=== PATIENT | female | born 1965 | race Caucasian/White ===

== ENCOUNTER 2017-11-03 00:39 | Observation (INO) | payer OTHER, MEDICARE ==
[~2017-11-03] VITALS: Ht 162.6 cm; Wt 50.8 kg
[~2017-11-03 00:39] MED LIST: ALDACTONE25 MG PO; HUMALOG100 UNIT/3 SQ; K DUR10 MEQ PO; LACTULOSE PO; LACTULOSE20 GM/30 M PO; LANTUS100 UNITS/ SQ; LASIX40 MG PO; LEVAQUIN500 MG PO; LEVEMIR 3M100 UNITS/ SC; LEVOTHYROXINE50 MCG PO; NOVOLOG100 UNITS/ SC; PANTOPRAZOLE SO20 MG PO; SPIRONOLACTONE25 MG PO; SYNTHROID50 MCG PO; TORSEMIDE20 MG PO; ULTRAM50 MG PO; VIAGRA50 MG PO; WELLBUTRIN XL150 MG PO; WELLBUTRIN75 MG PO; XIFAXAN200 MG PO; ZOFRAN ODT4 MG PO
--- OUTSIDE RECORDS SUMMARY | 2017-11-03 00:42 | XMS REPORT | Clinical Summary ---
Author Author [facility] Organization [facility] Address Unknown Phone Unavailable Care Team Providers Care Digital Content Marketing Manager Name Role Phone Kenyon Aguilar MD PCP Allergies Not on File Current Medications Not on file Active Problems Not on file Encounters Date Type Specialty Care Team Description 10/29/2017 [facility] Shaheen Bell MD Altered mental status, Encounter unspecified altered mental status type 10/28/2017 [facility] Ania Archuleta Altered mental status, Orders unspecified altered mental status type (Primary Dx) after 11/02/2016 Social History Tobacco Use Types Packs/Day Years Used Date Never Assessed Sex Assigned at Date Recorded Not on file Last Filed Vital Signs Not on file Plan of Treatment Health Maintenance Due Date Last Done Comments PAP SMEAR 12/03/1987 COLONOSCOPY 2016 MAMMOGRAM 2016 INFLUENZA VACCINE 03/19/2017 Procedures Procedure Name Priority Date/Time Associated Diagnosis Comments EEG AWAKE/ASLEEP LESS Routine 10/29/2017 Altered mental status, Results for this THAN 41 MIN 11:45 AM CDT unspecified altered procedure are in the mental status type results section. after 11/02/2016 Results * Outpatient EEG (10/29/2017 11:45 AM) Narrative EEG AWAKE AND ASLEEP Date of Service: 10/29/17 Awake Recording: The occipital dominant rhythm is 11 Hz. 18-22 Hz activity is present in all regions. Sleep Recording:No epileptiform activity was recorded. Hyperventilation: Not performed. Photic Stimulation: No abnormality elicited. Impression The background activity is within the range of normal variation. No lateralized or epileptiform activity was recorded. ICD-10 Code: R569 after 11/02/2016 Insurance Payer Benefit Subscriber ID Type Phone Address Plan / Group [facility] xxxxxxxxx HMO/PPO THCARE CHOICE/[place] [address]
--- OUTSIDE RECORDS SUMMARY | 2017-11-03 00:45 | XMS REPORT ---
[facility] Address Unknown Phone Unavailable Care Team Providers Care School Secretary Name Role Phone VANESA NIXON Unavailable Unavailable RUBINA, ALEXANDRA Unavailable Unavailable SAMWAYS, JEWEL Unavailable Unavailable FEGHALI, SAYED Unavailable Unavailable DARIANA, RICARDA Unavailable Unavailable CHANGELA, CARLOS Unavailable Unavailable KHADERI, PAOLA Unavailable Unavailable JALAL, PRASUN Unavailable Unavailable VU, TRIEN Unavailable Unavailable SYSTEM, PROVIDER Unavailable Unavailable TAVANGARIAN, MINI Unavailable Unavailable Problems This patient has no known problems. Allergies, Adverse Reactions, Alerts This patient has no known allergies or adverse reactions. Medications This patient has no known medications. Results Test Description Test Time Test Comments Text Results Atomic Results Result Comments MM, DIGITAL, MAMMO, SCREENING, BILATERAL INCLUDING CAD 2017-10-09 15:56:00 Reason for Exam:->screening. on liver transplant list #[id number] - MM, DIGITAL, MAMMO, SCREENING, BILATERAL INCLUDING CADBILATERAL DIGITAL SCREENING MAMMOGRAM WITH CAD: 10/09/2017Comparison is made to exam dated: 2010 mammogram - [facility]. The tissue of both breasts is extremely dense, which lowers the sensitivity of mammography. Current study was also evaluated with a Computer Aided Detection ( CAD) system. Benign appearing calcifications are present in both breasts. No significant masses, calcifications, or other findings are seen in either breast. IMPRESSION: BENIGNThere is no mammographic evidence of malignancy. A 1 year screening mammogram is recommended. Carol Delacruz M.D. pth/ penrad:10/09/2017 15:56:38 Normal Exam Mammogram BI-RADS: 2 Benign G0202 W/PLT COUNT & AUTO DIFFERENTIAL 2017-10-01 12:56:00 WHITE BLOOD CELL COUNT (BEAKER) (test sjoq=397) 2.4 K/ L 3.5-10.5 RED BLOOD CELL COUNT (BEAKER) (test ccvd=288) 2.66 M/ L 3.93-5.22 HEMOGLOBIN (BEAKER) (test iiup=027) 8.2 GM/DL 11.2-15.7 HEMATOCRIT (BEAKER) (test feln=116) 26.0 % 34.1-44.9 MEAN CORPUSCULAR VOLUME (BEAKER) (test epvf=279) 97.7 fL 79.4-94.8 MEAN CORPUSCULAR HEMOGLOBIN (BEAKER) (test mvch=301) 30.8 pg 25.6-32.2 MEAN CORPUSCULAR HEMOGLOBIN CONC (BEAKER) (test cdwl=561) 31.5 GM/DL 32.2- 35.5 RED CELL DISTRIBUTION WIDTH (BEAKER) (test pgzr=340) 16.4 % 11.7-14.4 PLATELET COUNT (BEAKER) (test mvwn=783) 70 K/CU MM 150-450 MEAN PLATELET VOLUME (BEAKER) (test daxj=727) 10.5 fL 9.4-12.3 NUCLEATED RED BLOOD CELLS (BEAKER) (test rcgw=258) 0 /100 WBC 0-0 IMMATURE GRANULOCYTES-RELATIVE PERCENT (BEAKER) (test wxdt=2783) 0 % 0-1 NEUTROPHILS RELATIVE PERCENT (BEAKER) (test bcsd=539) 70 % This is an appended report. These results have been appended to a previously final verified report. LYMPHOCYTES RELATIVE PERCENT (BEAKER) (test vaql=672) 19 % This is an appended report. These results have been appended to a previously final verified report. MONOCYTES RELATIVE PERCENT (BEAKER) (test zyia=229) 9 % This is an appended report. These results have been appended to a previously final verified report. EOSINOPHILS RELATIVE PERCENT (BEAKER) (test paml=504) 2 % This is an appended report. These results have been appended to a previously final verified report. BASOPHILS RELATIVE PERCENT (BEAKER) (test fgem=321) 0 % This is an appended report. These results have been appended to a previously final verified report. NEUTROPHILS ABSOLUTE COUNT (BEAKER) (test ywoo=463) 1.67 K/ L 1.56-6.13 This is an appended report. These results have been appended to a previously final verified report. LYMPHOCYTES ABSOLUTE COUNT (BEAKER) (test lnra=477) 0.45 K/ L 1.18-3.74 This is an appended report. These results have been appended to a previously final verified report. MONOCYTES ABSOLUTE COUNT (BEAKER) (test bymb=899) 0.21 K/ L 0.24-0.36 This is an appended report. These results have been appended to a previously final verified report. EOSINOPHILS ABSOLUTE COUNT (BEAKER) (test vrqe=445) 0.05 K/ L 0.04-0.36 This is an appended report. These results have been appended to a previously final verified report. BASOPHILS ABSOLUTE COUNT (BEAKER) (test rkgt=144) 0.01 K/ L 0.01-0.08 This is an appended report. These results have been appended to a previously final verified report. (MANUAL DIFFERENTIAL)2017-10-01 12:56:00* Test Item Value Reference Range Comments TOTAL COUNTED (BEAKER) (test cmqq=7457) COMPREHENSIVE METABOLIC [id number] 12:52:00* Test Item Value Reference Range Comments TOTAL PROTEIN (BEAKER) (test utjv=581) 5.9 gm/dL 6.0-8.3 ALBUMIN (BEAKER) (test udaz=3416) 2.7 g/dL 3.5-5.0 ALKALINE PHOSPHATASE (BEAKER) (test ftlg=750) 118 U/L 40-150 BILIRUBIN TOTAL (BEAKER) (test mxcc=769) 1.3 mg/dL 0.2-1.2 SODIUM (BEAKER) (test wzml=924) 138 meq/L 136-145 POTASSIUM (BEAKER) (test gbnv=680) 3.9 meq/L 3.5-5.1 CHLORIDE (BEAKER) (test uvcz=829) 107 meq/L 98-107 CO2 (BEAKER) (test vibo=117) 24 meq/L 22-29 BLOOD UREA NITROGEN (BEAKER) (test fode=262) 24 mg/dL 7-21 CREATININE (BEAKER) (test kwjx=535) 1.21 mg/dL 0.57-1.25 GLUCOSE RANDOM (BEAKER) (test cbuc=826) 245 mg/dL 70-105 CALCIUM (BEAKER) (test uqeg=187) 8.7 mg/dL 8.4-10.2 AST (SGOT) (BEAKER) (test xxaq=129) 19 U/L 5-34 ALT (SGPT) (BEAKER) (test bram=222) 14 U/L 6-55 EGFR (BEAKER) (test auqg=6680) 47 mL/min/1.73 sq m ESTIMATED GFR IS NOT ACCURATE CREATININE CLEARANCE IN PREDICTING GLOMERULAR FILTRATION RATE. ESTIMATED GFR IS NOT APPLICABLE FOR DIALYSIS PATIENTS. BILIRUBIN, [id number] 12:52:00* Test Item Value Reference Range Comments BILIRUBIN DIRECT (BEAKER) (test wigy=905) 0.7 mg/dL 0.1-0.5 PROTHROMBIN [id number] 12:37:00* Test Item Value Reference Range Comments PROTIME (BEAKER) (test yrlz=377) 18.0 seconds 11.7-14.7 INR (BEAKER) (test izbs=262) 1.5 <=5.9 RECOMMENDED COUMADIN/WARFARIN INR THERAPY RANGESSTANDARD DOSE: 2.0 - 3.0 Includes: PROPHYLAXIS for venous thrombosis, systemic embolization; TREATMENT for venous thrombosis and/or pulmonary embolus.HIGH RISK: Target INR is 2.5-3.5 for patients with mechanical heart valves.TISSUE [id number] 10:19: 00Surgical Pathology Report Case: [id number] Authorizing Provider: Vanesa Nixon MD Collected : 09/26/2017 1245 Ordering Location: [facility] Endoscopy Received: 09/26/2017 1532 Services Pathologist: Ima Zendejas MD Specimen: Polyp, Colon - Rectum PART A RECTAL POLYP, BIOPSY:TUBULAR ADENOMA. Signing Pathologist Direct Phone Line: [phone] signed by Iam Zendejas MD on 09/27/2017 at 10:19 [id number] encephalopathy, alcoholic cirrhosis of liver without ascitesRectum colon polyp The specimen is received in a formalin-filled container labeled with the patient 's information and labeled "rectum colon polyp" and consists of a 0.4 cm round fragment of georges-white soft tissue entirely submitted in A1. CG/ew POCT-GLUCOSE [id number] 06:11:00* Test Item Value Reference Range Comments POC-GLUCOSE METER (BEAKER) (test ikfk=8538) 284 mg/dL 70-110 TESTED AT [facility] [address] [facility] [address] POCT-GLUCOSE [id number] 11:08:00* Test Item Value Reference Range Comments POC-GLUCOSE METER (BEAKER) (test obyu=1806) 261 mg/dL 70-110 TESTED AT [facility] [address] [facility] [address] BLOOD [id number] 11:00:00* Test Item Value Reference Range Comments CULTURE (BEAKER) (test pbdc=0586) No growth in 5 days BLOOD [id number] 10:00:00* Test Item Value Reference Range Comments CULTURE (BEAKER) (test bjzu=3070) No growth in 5 days POCT-GLUCOSE [id number] 14:28:00* Test Item Value Reference Range Comments POC-GLUCOSE METER (BEAKER) (test ovnt=0745) 254 mg/dL 70-110 TESTED AT [facility] [address] [facility] [address] BASIC METABOLIC [id number] 11:20:00* Test Item Value Reference Range Comments SODIUM (BEAKER) (test gtxb=778) 130 meq/L 136-145 POTASSIUM (BEAKER) (test whkv=531) 4.4 meq/L 3.5-5.1 CHLORIDE (BEAKER) (test txvg=030) 103 meq/L 98-107 CO2 (BEAKER) (test bifz=063) 20 meq/L 22-29 BLOOD UREA NITROGEN (BEAKER) (test uyaj=911) 36 mg/dL 7-21 CREATININE (BEAKER) (test xqil=079) 1.06 mg/dL 0.57-1.25 GLUCOSE RANDOM (BEAKER) (test mcco=313) 461 mg/dL 70-105 CALCIUM (BEAKER) (test agmx=809) 7.9 mg/dL 8.4-10.2 EGFR (BEAKER) (test zznq=8428) 55 mL/min/1.73 sq m ESTIMATED GFR IS NOT ACCURATE CREATININE CLEARANCE IN PREDICTING GLOMERULAR FILTRATION RATE. ESTIMATED GFR IS NOT APPLICABLE FOR DIALYSIS PATIENTS. POCT-GLUCOSE [id number] 11:17:00* Test Item Value Reference Range Comments POC-GLUCOSE METER (BEAKER) (test aqdz=8632) 282 mg/dL 70-110 TESTED AT [facility] [address] [facility] [address] URINE [id number] 11:06:00* Test Item Value Reference Range Comments CULTURE (BEAKER) (test frfo=9827) 10-19,000 col/mL Beta-hemolytic streptococcus group B, by serological grouping 50-59,000 col/ml skin floraHEPATIC FUNCTION [id number] 08:37:00* Test Item Value Reference Range Comments TOTAL PROTEIN (BEAKER) (test etmq=516) 5.6 gm/dL 6.0-8.3 ALBUMIN (BEAKER) (test bcbc=5385) 2.6 g/dL 3.5-5.0 BILIRUBIN TOTAL (BEAKER) (test mfoi=595) 1.7 mg/dL 0.2-1.2 BILIRUBIN DIRECT (BEAKER) (test xhed=793) 0.9 mg/dL 0.1-0.5 ALKALINE PHOSPHATASE (BEAKER) (test qvxq=093) 118 U/L 40-150 AST (SGOT) (BEAKER) (test lzns=602) 40 U/L 5-34 ALT (SGPT) (BEAKER) (test zgqn=421) 22 U/L 6-55 MR, ABDOMEN, [id number] 08:28:00FINAL REPORT MRI of the abdomen with and without contrast Clinical History: Portal hypertensionliver disease with risk of hcc, liver protocol Technique: Multiplanar and multisequence MR images of the abdomen are obtained before and after intravenous contrast administration. Contrast is administered to evaluate neoplasm and vasculature. Comparison: January 30, 2017, August 16, 2016 Discussion: There is a small loculated collection of fluid at the right lung base. Heart appears enlarged. Liver is cirrhotic. There is no biliary ductal dilatation, gallbladder is absent. No suspicious liver mass is identified. A few tiny hypoenhancing nodules are similar to the previous exams. Hepatic vasculature is patent. Main portal vein is slightly small in caliber measuring 0.8 cm. 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 Spleen is enlarged and measures 17.2 cm sagittally. The pancreas, adrenal glands are unremarkable. No hydronephrosis. Multiple cysts are present in both kidneys. There is trace ascites. No adenopathy identified. No suspicious bony lesion. Impression: Cirrhosis, splenomegaly and portal hypertension. No suspicious liver mass identified. Trace ascites. Small loculated right pleural effusion. Signed: Salome Pino MDReport Verified Date/Time: 08/29/2017 08:28:00 Reading Location: [facility] Diagnostic Imaging Reading Room - [place] [address] W/PLT COUNT & AUTO [id number] 08:15:00* Test Item Value Reference Range Comments WHITE BLOOD CELL COUNT (BEAKER) (test zbvr=713) 1.7 K/ L 3.5-10.5 RED BLOOD CELL COUNT (BEAKER) (test htav=569) 2.30 M/ L 3.93-5.22 HEMOGLOBIN (BEAKER) (test dipq=253) 7.7 GM/DL 11.2-15.7 HEMATOCRIT (BEAKER) (test qwfk=250) 23.6 % 34.1-44.9 MEAN CORPUSCULAR VOLUME (BEAKER) (test rzrs=090) 102.6 fL 79.4-94.8 MEAN CORPUSCULAR HEMOGLOBIN (BEAKER) (test xopf=247) 33.5 pg 25.6-32.2 MEAN CORPUSCULAR HEMOGLOBIN CONC (BEAKER) (test nfmu=922) 32.6 GM/DL 32.2- 35.5 RED CELL DISTRIBUTION WIDTH (BEAKER) (test ndrq=297) 15.9 % 11.7-14.4 PLATELET COUNT (BEAKER) (test owqq=364) 77 K/CU MM 150-450 MEAN PLATELET VOLUME (BEAKER) (test kwip=193) 10.8 fL 9.4-12.3 NUCLEATED RED BLOOD CELLS (BEAKER) (test fktp=068) 0 /100 WBC 0-0 NEUTROPHILS RELATIVE PERCENT (BEAKER) (test hafk=398) 66 % LYMPHOCYTES RELATIVE PERCENT (BEAKER) (test hsvc=738) 25 % MONOCYTES RELATIVE PERCENT (BEAKER) (test ribd=357) 8 % EOSINOPHILS RELATIVE PERCENT (BEAKER) (test tqat=247) 0 % BASOPHILS RELATIVE PERCENT (BEAKER) (test hgux=779) 1 % NEUTROPHILS ABSOLUTE COUNT (BEAKER) (test lxzf=638) 1.12 K/ L 1.56-6.13 LYMPHOCYTES ABSOLUTE COUNT (BEAKER) (test vijr=516) 0.42 K/ L 1.18-3.74 MONOCYTES ABSOLUTE COUNT (BEAKER) (test drry=632) 0.14 K/ L 0.24-0.36 EOSINOPHILS ABSOLUTE COUNT (BEAKER) (test ploq=189) 0.00 K/ L 0.04-0.36 BASOPHILS ABSOLUTE COUNT (BEAKER) (test wkug=021) 0.01 K/ L 0.01-0.08 IMMATURE GRANULOCYTES-RELATIVE PERCENT (BEAKER) (test yjqb=0552) 1 % 0-1 POCT-GLUCOSE [id number] 07:47:00* Test Item Value Reference Range Comments POC-GLUCOSE METER (BEAKER) (test rzxv=7465) 365 mg/dL 70-110 Notified SELVIN JACOBSON/ TESTED AT [address] [address] PROTHROMBIN [id number] 06:48:00* Test Item Value Reference Range Comments PROTIME (BEAKER) (test oimz=157) 17.2 seconds 11.7-14.7 INR (BEAKER) (test owcc=056) 1.4 <=5.9 RECOMMENDED COUMADIN/WARFARIN INR THERAPY RANGESSTANDARD DOSE: 2.0 - 3.0 Includes: PROPHYLAXIS for venous thrombosis, systemic embolization; TREATMENT for venous thrombosis and/or pulmonary embolus.HIGH RISK: Target INR is 2.5-3.5 for patients with mechanical heart valves.POCT-GLUCOSE [id number] 21:36:00 * Test Item Value Reference Range Comments POC-GLUCOSE METER (BEAKER) (test hvyo=9760) 255 mg/dL 70-110 TESTED AT [address] [address] POCT-GLUCOSE [id number] 18:21:00* Test Item Value Reference Range Comments POC-GLUCOSE METER (BEAKER) (test iqwn=4341) 366 mg/dL 70-110 TESTED AT [address] [address] CBC W/PLT COUNT & AUTO [id number] 15:45:00* Test Item Value Reference Range Comments WHITE BLOOD CELL COUNT (BEAKER) (test gckb=410) 1.8 K/ L 3.5-10.5 RED BLOOD CELL COUNT (BEAKER) (test rlch=157) 2.29 M/ L 3.93-5.22 HEMOGLOBIN (BEAKER) (test jkcu=480) 7.6 GM/DL 11.2-15.7 HEMATOCRIT (BEAKER) (test weoo=714) 23.4 % 34.1-44.9 MEAN CORPUSCULAR VOLUME (BEAKER) (test npst=785) 102.2 fL 79.4-94.8 MEAN CORPUSCULAR HEMOGLOBIN (BEAKER) (test qbnt=865) 33.2 pg 25.6-32.2 MEAN CORPUSCULAR HEMOGLOBIN CONC (BEAKER) (test wzkk=530) 32.5 GM/DL 32.2- 35.5 RED CELL DISTRIBUTION WIDTH (BEAKER) (test jjyc=318) 16.7 % 11.7-14.4 PLATELET COUNT (BEAKER) (test djpk=511) 78 K/CU MM 150-450 MEAN PLATELET VOLUME (BEAKER) (test finh=624) 10.1 fL 9.4-12.3 NUCLEATED RED BLOOD CELLS (BEAKER) (test iftq=822) 0 /100 WBC 0-0 NEUTROPHILS RELATIVE PERCENT (BEAKER) (test mnuj=856) 61 % LYMPHOCYTES RELATIVE PERCENT (BEAKER) (test dnvb=288) 26 % MONOCYTES RELATIVE PERCENT (BEAKER) (test whtq=517) 10 % EOSINOPHILS RELATIVE PERCENT (BEAKER) (test bwnk=283) 2 % BASOPHILS RELATIVE PERCENT (BEAKER) (test agor=949) 1 % NEUTROPHILS ABSOLUTE COUNT (BEAKER) (test qrdg=066) 1.07 K/ L 1.56-6.13 LYMPHOCYTES ABSOLUTE COUNT (BEAKER) (test libl=309) 0.45 K/ L 1.18-3.74 MONOCYTES ABSOLUTE COUNT (BEAKER) (test idzg=211) 0.18 K/ L 0.24-0.36 EOSINOPHILS ABSOLUTE COUNT (BEAKER) (test fyfh=786) 0.03 K/ L 0.04-0.36 BASOPHILS ABSOLUTE COUNT (BEAKER) (test brca=364) 0.01 K/ L 0.01-0.08 IMMATURE GRANULOCYTES-RELATIVE PERCENT (BEAKER) (test qrgy=6316) 1 % 0-1 (MANUAL DIFFERENTIAL)2017-08-28 15:45:00* Test Item Value Reference Range Comments TOTAL COUNTED (BEAKER) (test vfgw=8640) WBC MORPHOLOGY (BEAKER) (test mycv=433) Normal PLT MORPHOLOGY (BEAKER) (test yhhp=466) Normal MACROCYTES (BEAKER) (test pitg=593) 1+ few POCT-GLUCOSE [id number] 13:03:00* Test Item Value Reference Range Comments POC-GLUCOSE METER (BEAKER) (test qnbg=7744) 358 mg/dL 70-110 Notified SELVIN JACOBSON/ TESTED AT [facility] [address] [facility] [address] POCT-GLUCOSE [id number] 07:39:00* Test Item Value Reference Range Comments POC-GLUCOSE METER (BEAKER) (test nlbl=3283) 241 mg/dL 70-110 TESTED AT [place] [id number] [facility] [address] HEPATIC FUNCTION [id number] 07:05:00* Test Item Value Reference Range Comments TOTAL PROTEIN (BEAKER) (test grpl=223) 5.4 gm/dL 6.0-8.3 ALBUMIN (BEAKER) (test iypk=0081) 2.4 g/dL 3.5-5.0 BILIRUBIN TOTAL (BEAKER) (test ooqu=626) 1.7 mg/dL 0.2-1.2 BILIRUBIN DIRECT (BEAKER) (test qjnt=243) 0.9 mg/dL 0.1-0.5 ALKALINE PHOSPHATASE (BEAKER) (test rcwf=450) 95 U/L 40-150 AST (SGOT) (BEAKER) (test aetx=830) 30 U/L 5-34 ALT (SGPT) (BEAKER) (test shln=978) 18 U/L 6-55 BASIC METABOLIC [id number] 07:05:00* Test Item Value Reference Range Comments SODIUM (BEAKER) (test kpnw=433) 143 meq/L 136-145 POTASSIUM (BEAKER) (test qrgr=532) 4.0 meq/L 3.5-5.1 CHLORIDE (BEAKER) (test aova=167) 115 meq/L 98-107 CO2 (BEAKER) (test xdql=784) 22 meq/L 22-29 BLOOD UREA NITROGEN (BEAKER) (test vehk=953) 33 mg/dL 7-21 CREATININE (BEAKER) (test mxfb=123) 0.91 mg/dL 0.57-1.25 GLUCOSE RANDOM (BEAKER) (test udvj=493) 206 mg/dL 70-105 CALCIUM (BEAKER) (test fmtt=240) 8.6 mg/dL 8.4-10.2 EGFR (BEAKER) (test vnbd=3957) 65 mL/min/1.73 sq m ESTIMATED GFR IS NOT ACCURATE CREATININE CLEARANCE IN PREDICTING GLOMERULAR FILTRATION RATE. ESTIMATED GFR IS NOT APPLICABLE FOR DIALYSIS PATIENTS. PROTHROMBIN TIME/[id number] 06:40:00* Test Item Value Reference Range Comments PROTIME (BEAKER) (test cido=050) 17.5 seconds 11.7-14.7 INR (BEAKER) (test izmz=114) 1.4 <=5.9 RECOMMENDED COUMADIN/WARFARIN INR THERAPY RANGESSTANDARD DOSE: 2.0 - 3.0 Includes: PROPHYLAXIS for venous thrombosis, systemic embolization; TREATMENT for venous thrombosis and/or pulmonary embolus.HIGH RISK: Target INR is 2.5-3.5 for patients with mechanical heart valves.POCT-GLUCOSE [id number] 00:13:00 * Test Item Value Reference Range Comments POC-GLUCOSE METER (BEAKER) (test cmyo=9032) 368 mg/dL 70-110 Notified SELVIN JACOBSON/ TESTED AT [address] [address] URINALYSIS W/ [id number] 18:44:00* Test Item Value Reference Range Comments COLOR (BEAKER) (test aopy=832) Light Yellow CLARITY (BEAKER) (test sfyr=368) Clear SPECIFIC GRAVITY UA (BEAKER) (test cblx=921) 1.006 1.001-1.035 PH UA (BEAKER) (test bspr=777) 7.0 5.0-8.0 PROTEIN UA (BEAKER) (test qwvv=503) Negative Negative GLUCOSE UA (BEAKER) (test tmez=367) Negative Negative KETONES UA (BEAKER) (test wlsb=527) Negative Negative BILIRUBIN UA (BEAKER) (test abol=485) Negative Negative BLOOD UA (BEAKER) (test lhpw=370) Negative Negative NITRITE UA (BEAKER) (test mugn=789) Negative Negative LEUKOCYTE ESTERASE UA (BEAKER) (test gixy=573) Negative Negative UROBILINOGEN UA (BEAKER) (test mfwi=628) 0.2 mg/dL 0.2-1.0 RBC UA (BEAKER) (test kjxy=242) 1 /HPF WBC UA (BEAKER) (test ldgb=043) < /HPF SQUAMOUS EPITHELIAL (BEAKER) (test gymh=448) 1 /HPF SOURCE(BEAKER) (test qtno=9172) Urine, Voided POCT-GLUCOSE [id number] 17:07:00* Test Item Value Reference Range Comments POC-GLUCOSE METER (BEAKER) (test rywc=3278) 178 mg/dL 70-110 TESTED AT [facility] [address] [facility] [address] CBC W/PLT COUNT & AUTO [id number] 16:54:00* Test Item Value Reference Range Comments WHITE BLOOD CELL COUNT (BEAKER) (test jnqz=665) 2.5 K/ L 3.5-10.5 RED BLOOD CELL COUNT (BEAKER) (test ozun=818) 2.40 M/ L 3.93-5.22 HEMOGLOBIN (BEAKER) (test mpyv=290) 7.9 GM/DL 11.2-15.7 HEMATOCRIT (BEAKER) (test dexo=809) 24.3 % 34.1-44.9 MEAN CORPUSCULAR VOLUME (BEAKER) (test yqdu=237) 101.3 fL 79.4-94.8 MEAN CORPUSCULAR HEMOGLOBIN (BEAKER) (test ffmt=304) 32.9 pg 25.6-32.2 MEAN CORPUSCULAR HEMOGLOBIN CONC (BEAKER) (test azwq=681) 32.5 GM/DL 32.2- 35.5 RED CELL DISTRIBUTION WIDTH (BEAKER) (test kfsl=030) 16.4 % 11.7-14.4 PLATELET COUNT (BEAKER) (test qdgj=522) 77 K/CU MM 150-450 MEAN PLATELET VOLUME (BEAKER) (test suap=618) 10.5 fL 9.4-12.3 NUCLEATED RED BLOOD CELLS (BEAKER) (test npcp=346) 0 /100 WBC 0-0 NEUTROPHILS RELATIVE PERCENT (BEAKER) (test polx=916) 71 % LYMPHOCYTES RELATIVE PERCENT (BEAKER) (test pzbg=262) 18 % MONOCYTES RELATIVE PERCENT (BEAKER) (test srlw=405) 7 % EOSINOPHILS RELATIVE PERCENT (BEAKER) (test wdeg=771) 2 % BASOPHILS RELATIVE PERCENT (BEAKER) (test imgo=340) 0 % NEUTROPHILS ABSOLUTE COUNT (BEAKER) (test gvor=856) 1.78 K/ L 1.56-6.13 LYMPHOCYTES ABSOLUTE COUNT (BEAKER) (test yxfw=593) 0.46 K/ L 1.18-3.74 MONOCYTES ABSOLUTE COUNT (BEAKER) (test awyg=304) 0.18 K/ L 0.24-0.36 EOSINOPHILS ABSOLUTE COUNT (BEAKER) (test cccc=512) 0.04 K/ L 0.04-0.36 BASOPHILS ABSOLUTE COUNT (BEAKER) (test maag=787) 0.01 K/ L 0.01-0.08 IMMATURE GRANULOCYTES-RELATIVE PERCENT (BEAKER) (test juxp=6215) 1 % 0-1 BASIC METABOLIC [id number] 14:42:00* Test Item Value Reference Range Comments SODIUM (BEAKER) (test lusp=930) 144 meq/L 136-145 POTASSIUM (BEAKER) (test qcew=903) 4.0 meq/L 3.5-5.1 CHLORIDE (BEAKER) (test arhp=586) 113 meq/L 98-107 CO2 (BEAKER) (test mojq=070) 22 meq/L 22-29 BLOOD UREA NITROGEN (BEAKER) (test xgvs=155) 38 mg/dL 7-21 CREATININE (BEAKER) (test lgxz=716) 0.94 mg/dL 0.57-1.25 GLUCOSE RANDOM (BEAKER) (test pzyb=665) 133 mg/dL 70-105 CALCIUM (BEAKER) (test vgsz=616) 9.1 mg/dL 8.4-10.2 EGFR (BEAKER) (test hrri=6740) 63 mL/min/1.73 sq m ESTIMATED GFR IS NOT ACCURATE CREATININE CLEARANCE IN PREDICTING GLOMERULAR FILTRATION RATE. ESTIMATED GFR IS NOT APPLICABLE FOR DIALYSIS PATIENTS. Specimen slightly ictericHEPATIC FUNCTION [id number] 14:42:00* Test Item Value Reference Range Comments TOTAL PROTEIN (BEAKER) (test midi=373) 5.8 gm/dL 6.0-8.3 ALBUMIN (BEAKER) (test upbo=4873) 2.7 g/dL 3.5-5.0 BILIRUBIN TOTAL (BEAKER) (test hriz=916) 1.7 mg/dL 0.2-1.2 BILIRUBIN DIRECT (BEAKER) (test vgyc=759) 1.0 mg/dL 0.1-0.5 ALKALINE PHOSPHATASE (BEAKER) (test ngla=533) 108 U/L 40-150 AST (SGOT) (BEAKER) (test xfia=357) 33 U/L 5-34 ALT (SGPT) (BEAKER) (test zjqt=730) 20 U/L 6-55 Specimen slightly [id number] 13:48:00* Test Item Value Reference Range Comments AMMONIA (BEAKER) (test ehmc=113) 145 mol/L 18-72 CT, BRAIN, WITHOUT [id number] 11:39:00Reason for exam:->amsIs the patient ?->NoWhat is the patient's sedation requirement?->No SedationFINAL REPORT CT head without contrast INDICATION : Altered mental status. TECHNIQUE: Axial noncontrast CT images through the head were obtained. This exam was performed according to our departmental dose optimization program which includes automated exposure control, adjustment of the mA and/or kV according to patient size and/or use of iterative reconstruction technique. COMPARISON: CT head 02/14/2017 FINDINGS:There is no acute intracranial hemorrhage or mass effect. Microvascular ischemic changes are similar to the prior study and chronic appearing. Please note that CT is insensitive for early or small infarcts. Generalized volume loss and minimal vascular calcifications are noted. There is no hydrocephalus or midline shift. There is stable minimal mastoid air cell fluid. The imaged sinuses and orbits are unremarkable. The calvarium is intact. IMPRESSION: No acute intracranial hemorrhage or mass effect. Chronic appearing microvascular and involutional changes. If there is persistent concern for acute abnormality, MRI is advised. Signed: Nelly Benoit MDRepthe rehabilitation institute Verified Date/Time: 08/27/2017 11:39:33 Reading Location: [address] Neuro Reading Room E [id number] 10:43: 00* Test Item Value Reference Range Comments CULTURE (BEAKER) (test poav=2786) No growth POCT-GLUCOSE [id number] 08:36:00* Test Item Value Reference Range Comments POC-GLUCOSE METER (BEAKER) (test utlv=2540) 317 mg/dL 70-110 Notified SELVIN JACOBSON/ TESTED AT [address] [address] CBC W/PLT COUNT & AUTO [id number] 06:57:00* Test Item Value Reference Range Comments WHITE BLOOD CELL COUNT (BEAKER) (test kvwn=080) 3.4 K/ L 3.5-10.5 RED BLOOD CELL COUNT (BEAKER) (test zvkg=667) 2.38 M/ L 3.93-5.22 HEMOGLOBIN (BEAKER) (test mpbu=379) 7.8 GM/DL 11.2-15.7 HEMATOCRIT (BEAKER) (test tfrl=365) 23.5 % 34.1-44.9 MEAN CORPUSCULAR VOLUME (BEAKER) (test erpm=955) 98.7 fL 79.4-94.8 MEAN CORPUSCULAR HEMOGLOBIN (BEAKER) (test ozez=041) 32.8 pg 25.6-32.2 MEAN CORPUSCULAR HEMOGLOBIN CONC (BEAKER) (test akjk=589) 33.2 GM/DL 32.2- 35.5 RED CELL DISTRIBUTION WIDTH (BEAKER) (test empc=367) 15.3 % 11.7-14.4 PLATELET COUNT (BEAKER) (test riza=406) 71 K/CU MM 150-450 MEAN PLATELET VOLUME (BEAKER) (test pjrh=319) 9.9 fL 9.4-12.3 NUCLEATED RED BLOOD CELLS (BEAKER) (test zosx=180) 0 /100 WBC 0-0 NEUTROPHILS RELATIVE PERCENT (BEAKER) (test pogd=809) 78 % LYMPHOCYTES RELATIVE PERCENT (BEAKER) (test vojs=682) 13 % MONOCYTES RELATIVE PERCENT (BEAKER) (test txbi=015) 7 % EOSINOPHILS RELATIVE PERCENT (BEAKER) (test honm=117) 1 % BASOPHILS RELATIVE PERCENT (BEAKER) (test dhph=660) 1 % NEUTROPHILS ABSOLUTE COUNT (BEAKER) (test olgg=098) 2.62 K/ L 1.56-6.13 LYMPHOCYTES ABSOLUTE COUNT (BEAKER) (test kwsu=823) 0.45 K/ L 1.18-3.74 MONOCYTES ABSOLUTE COUNT (BEAKER) (test sbiw=407) 0.22 K/ L 0.24-0.36 EOSINOPHILS ABSOLUTE COUNT (BEAKER) (test vtob=265) 0.04 K/ L 0.04-0.36 BASOPHILS ABSOLUTE COUNT (BEAKER) (test wnuj=903) 0.02 K/ L 0.01-0.08 IMMATURE GRANULOCYTES-RELATIVE PERCENT (BEAKER) (test kesw=0311) 0 % 0-1 [id number] 06:31:00* Test Item Value Reference Range Comments PHOSPHORUS (BEAKER) (test ggmj=259) 2.0 mg/dL 2.3-4.7 [id number] 06:31:00* Test Item Value Reference Range Comments MAGNESIUM (BEAKER) (test nadt=722) 1.2 mg/dL 1.6-2.6 COMPREHENSIVE METABOLIC [id number] 06:31:00* Test Item Value Reference Range Comments TOTAL PROTEIN (BEAKER) (test zwrr=796) 5.3 gm/dL 6.0-8.3 ALBUMIN (BEAKER) (test fxfk=6959) 2.5 g/dL 3.5-5.0 ALKALINE PHOSPHATASE (BEAKER) (test eaif=136) 103 U/L 40-150 BILIRUBIN TOTAL (BEAKER) (test rtiv=909) 2.0 mg/dL 0.2-1.2 SODIUM (BEAKER) (test efau=212) 134 meq/L 136-145 POTASSIUM (BEAKER) (test yyly=662) 3.7 meq/L 3.5-5.1 CHLORIDE (BEAKER) (test zjes=519) 105 meq/L 98-107 CO2 (BEAKER) (test irza=297) 23 meq/L 22-29 BLOOD UREA NITROGEN (BEAKER) (test irpd=646) 28 mg/dL 7-21 CREATININE (BEAKER) (test irnm=796) 1.06 mg/dL 0.57-1.25 GLUCOSE RANDOM (BEAKER) (test awus=008) 355 mg/dL 70-105 CALCIUM (BEAKER) (test ascq=045) 8.1 mg/dL 8.4-10.2 AST (SGOT) (BEAKER) (test dvzt=348) 24 U/L 5-34 ALT (SGPT) (BEAKER) (test swnj=461) 16 U/L 6-55 EGFR (BEAKER) (test bewi=8454) 55 mL/min/1.73 sq m ESTIMATED GFR IS NOT ACCURATE CREATININE CLEARANCE IN PREDICTING GLOMERULAR FILTRATION RATE. ESTIMATED GFR IS NOT APPLICABLE FOR DIALYSIS PATIENTS. PROTHROMBIN [id number] 06:22:00* Test Item Value Reference Range Comments PROTIME (BEAKER) (test cyim=009) 18.5 seconds 11.7-14.7 INR (BEAKER) (test qppn=866) 1.5 <=5.9 RECOMMENDED COUMADIN/WARFARIN INR THERAPY RANGESSTANDARD DOSE: 2.0 - 3.0 Includes: PROPHYLAXIS for venous thrombosis, systemic embolization; TREATMENT for venous thrombosis and/or pulmonary embolus.HIGH RISK: Target INR is 2.5-3.5 for patients with mechanical heart valves.[id number] 06:13:00* Test Item Value Reference Range Comments AMMONIA (BEAKER) (test haau=362) 85 mol/L 18-72 POCT-GLUCOSE [id number] 23:43:00* Test Item Value Reference Range Comments POC-GLUCOSE METER (BEAKER) (test tfiz=4536) 411 mg/dL 70-110 TESTED AT [facility] [address] [facility] [address] URINALYSIS W/ [id number] 22:42:00* Test Item Value Reference Range Comments COLOR (BEAKER) (test xvwe=224) Yellow CLARITY (BEAKER) (test bgbx=468) Clear SPECIFIC GRAVITY UA (BEAKER) (test keho=915) 1.011 1.001-1.035 PH UA (BEAKER) (test hhva=041) 6.5 5.0-8.0 PROTEIN UA (BEAKER) (test qaaa=626) Negative Negative GLUCOSE UA (BEAKER) (test cmht=766) Negative Negative KETONES UA (BEAKER) (test hkvc=536) Negative Negative BILIRUBIN UA (BEAKER) (test lrlb=959) Negative Negative BLOOD UA (BEAKER) (test pcmj=371) Negative Negative NITRITE UA (BEAKER) (test cabo=669) Negative Negative LEUKOCYTE ESTERASE UA (BEAKER) (test sxqd=506) Negative Negative UROBILINOGEN UA (BEAKER) (test rdvw=238) 3.0 mg/dL 0.2-1.0 RBC UA (BEAKER) (test jjxj=427) 3 /HPF WBC UA (BEAKER) (test obhc=488) 3 /HPF SQUAMOUS EPITHELIAL (BEAKER) (test cqzd=080) 2 /HPF SOURCE(BEAKER) (test owtt=3796) POCT-GLUCOSE [id number] 21:49:00* Test Item Value Reference Range Comments POC-GLUCOSE METER (BEAKER) (test facy=3458) > mg/dL 70-110 OUTSIDE MEASURING RANGENotified SELVIN JACOBSON/TESTED AT [facility] [address] [place] [address] POCT-GLUCOSE [id number] 16:16:00* Test Item Value Reference Range Comments POC-GLUCOSE METER (BEAKER) (test jydh=7060) 181 mg/dL 70-110 TESTED AT [address] [address] POCT-GLUCOSE [id number] 16:13:00* Test Item Value Reference Range Comments POC-GLUCOSE METER (BEAKER) (test cnyg=0095) 237 mg/dL 70-110 TESTED AT [address] [address] CREATINE KINASE (CK), TOTAL AND [id number] 08:44:00* Test Item Value Reference Range Comments CREATINE KINASE TOTAL (BEAKER) (test awti=350) 23 U/L 29-200 CREATINE KINASE-MB (BEAKER) (test fdrj=091) 1.0 ng/mL 0.0-6.6 CREATINE KINASE-MB INDEX (BEAKER) (test kanx=563) 4.3 % CK-MB Reference Range:<6.7 Normal6.7-10.0 Borderline>10.0 AbnormalTROPONIN [id number] 08:44:00* Test Item Value Reference Range Comments TROPONIN I (BEAKER) (test emmo=135) < ng/mL 0.00-0.03 Troponin I (TnI) levels must be interpreted in the context of the presenting symptoms and the clinical findings. Elevated TnI levels indicate myocardial damage, but are not specific for ischemic heart disease. Elevated TnI levels are seen in patients with other cardiac conditions (including myocarditis and congestive heart failure), and slight TnI elevations occur in patients with other conditions, including sepsis, renal failure, acidosis, acute neurological disease, and persistent tachyarrhythmia.[id number] 06:17:00* Test Item Value Reference Range Comments PHOSPHORUS (BEAKER) (test wkvi=286) 2.9 mg/dL 2.3-4.7 [id number] 06:17:00* Test Item Value Reference Range Comments MAGNESIUM (BEAKER) (test hszh=185) 1.8 mg/dL 1.6-2.6 CREATINE KINASE (CK), TOTAL AND [id number] 06:17:00* Test Item Value Reference Range Comments CREATINE KINASE TOTAL (BEAKER) (test qtjd=444) 26 U/L 29-200 CREATINE KINASE-MB (BEAKER) (test siov=283) 1.1 ng/mL 0.0-6.6 CREATINE KINASE-MB INDEX (BEAKER) (test wvrm=900) 4.2 % CK-MB Reference Range:<6.7 Normal6.7-10.0 Borderline>10.0 AbnormalTROPONIN [id number] 05:49:00* Test Item Value Reference Range Comments TROPONIN I (BEAKER) (test tiuj=977) < ng/mL 0.00-0.03 Troponin I (TnI) levels must be interpreted in the context of the presenting symptoms and the clinical findings. Elevated TnI levels indicate myocardial damage, but are not specific for ischemic heart disease. Elevated TnI levels are seen in patients with other cardiac conditions (including myocarditis and congestive heart failure), and slight TnI elevations occur in patients with other conditions, including sepsis, renal failure, acidosis, acute neurological disease, and persistent tachyarrhythmia.LACTIC ACID, ARTERIAL, WHOLE [id number] 05:45:00* Test Item Value Reference Range Comments LACTATE BLOOD ARTERIAL (2) (BEAKER) (test aavz=5435) 0.9 mmol/L 0.5-2.2 Specimen slightly hemolyzed Effective 12/21/2015: Units/Reference Range ChangeNew: 0.5-2.2 mmol/L Previous: 5 -20 mg/dLPOCT-GLUCOSE [id number] 00:51:00* Test Item Value Reference Range Comments POC-GLUCOSE METER (BEAKER) (test kedi=0472) 199 mg/dL 70-110 TESTED AT [address] [address] HEPATIC FUNCTION [id number] 00:49:00* Test Item Value Reference Range Comments TOTAL PROTEIN (BEAKER) (test ucfl=611) 5.7 gm/dL 6.0-8.3 ALBUMIN (BEAKER) (test qniw=4021) 2.5 g/dL 3.5-5.0 BILIRUBIN TOTAL (BEAKER) (test kqjj=173) 1.6 mg/dL 0.2-1.2 BILIRUBIN DIRECT (BEAKER) (test pkyo=539) 0.9 mg/dL 0.1-0.5 ALKALINE PHOSPHATASE (BEAKER) (test dinu=598) 110 U/L 40-150 AST (SGOT) (BEAKER) (test ptgt=097) 25 U/L 5-34 ALT (SGPT) (BEAKER) (test mgak=466) 15 U/L 6-55 BASIC METABOLIC [id number] 00:49:00* Test Item Value Reference Range Comments SODIUM (BEAKER) (test tmst=864) 139 meq/L 136-145 POTASSIUM (BEAKER) (test ldyo=160) 4.1 meq/L 3.5-5.1 CHLORIDE (BEAKER) (test pdns=763) 108 meq/L 98-107 CO2 (BEAKER) (test wmbg=692) 23 meq/L 22-29 BLOOD UREA NITROGEN (BEAKER) (test jjts=398) 29 mg/dL 7-21 CREATININE (BEAKER) (test snrq=966) 1.08 mg/dL 0.57-1.25 GLUCOSE RANDOM (BEAKER) (test ucym=918) 155 mg/dL 70-105 CALCIUM (BEAKER) (test uucy=786) 8.8 mg/dL 8.4-10.2 EGFR (BEAKER) (test vzjc=3968) 54 mL/min/1.73 sq m ESTIMATED GFR IS NOT ACCURATE CREATININE CLEARANCE IN PREDICTING GLOMERULAR FILTRATION RATE. ESTIMATED GFR IS NOT APPLICABLE FOR DIALYSIS PATIENTS. CREATINE KINASE (CK), TOTAL AND [id number] 00:31:00* Test Item Value Reference Range Comments CREATINE KINASE TOTAL (BEAKER) (test pitj=131) 29 U/L 29-200 CREATINE KINASE-MB (BEAKER) (test uwtm=167) 1.1 ng/mL 0.0-6.6 CREATINE KINASE-MB INDEX (BEAKER) (test wmnr=992) 3.8 % CK-MB Reference Range:<6.7 Normal6.7-10.0 Borderline>10.0 AbnormalTROPONIN [id number] 00:31:00* Test Item Value Reference Range Comments TROPONIN I (BEAKER) (test ukel=711) 0.01 ng/mL 0.00-0.03 Troponin I (TnI) levels must be interpreted in the context of the presenting symptoms and the clinical findings. Elevated TnI levels indicate myocardial damage, but are not specific for ischemic heart disease. Elevated TnI levels are seen in patients with other cardiac conditions (including myocarditis and congestive heart failure), and slight TnI elevations occur in patients with other conditions, including sepsis, renal failure, acidosis, acute neurological disease, and persistent tachyarrhythmia.[id number] 22:50:00* Test Item Value Reference Range Comments AMMONIA (BEAKER) (test nkcn=932) 261 mol/L 18-72 [id number] 22:48:00* Test Item Value Reference Range Comments PROTIME (BEAKER) (test dasl=159) 17.4 seconds 11.7-14.7 INR (BEAKER) (test gcfy=943) 1.4 <=5.9 PARTIAL THROMBOPLASTIN TIME (BEAKER) (test exhi=897) 30.7 seconds 22.5-36.0 RECOMMENDED COUMADIN/WARFARIN INR THERAPY RANGESSTANDARD DOSE: 2.0 - 3.0 Includes: PROPHYLAXIS for venous thrombosis, systemic embolization; TREATMENT for venous thrombosis and/or pulmonary embolus.HIGH RISK: Target INR is 2.5-3.5 for patients with mechanical heart valves.CBC W/PLT COUNT & AUTO [id number] 22:39:00* Test Item Value Reference Range Comments WHITE BLOOD CELL COUNT (BEAKER) (test ztmc=374) 3.1 K/ L 3.5-10.5 RED BLOOD CELL COUNT (BEAKER) (test sbro=548) 2.59 M/ L 3.93-5.22 HEMOGLOBIN (BEAKER) (test kkoy=466) 8.6 GM/DL 11.2-15.7 HEMATOCRIT (BEAKER) (test kjcc=520) 25.1 % 34.1-44.9 MEAN CORPUSCULAR VOLUME (BEAKER) (test uaxg=193) 96.9 fL 79.4-94.8 MEAN CORPUSCULAR HEMOGLOBIN (BEAKER) (test jyuh=337) 33.2 pg 25.6-32.2 MEAN CORPUSCULAR HEMOGLOBIN CONC (BEAKER) (test otfi=548) 34.3 GM/DL 32.2- 35.5 RED CELL DISTRIBUTION WIDTH (BEAKER) (test vbpi=147) 14.8 % 11.7-14.4 PLATELET COUNT (BEAKER) (test alav=916) 74 K/CU MM 150-450 MEAN PLATELET VOLUME (BEAKER) (test vcxd=787) 10.2 fL 9.4-12.3 NUCLEATED RED BLOOD CELLS (BEAKER) (test xvqv=479) 0 /100 WBC 0-0 NEUTROPHILS RELATIVE PERCENT (BEAKER) (test hbwq=977) 69 % LYMPHOCYTES RELATIVE PERCENT (BEAKER) (test vhln=696) 19 % MONOCYTES RELATIVE PERCENT (BEAKER) (test fkyj=702) 9 % EOSINOPHILS RELATIVE PERCENT (BEAKER) (test mszo=444) 2 % BASOPHILS RELATIVE PERCENT (BEAKER) (test uqpd=971) 0 % NEUTROPHILS ABSOLUTE COUNT (BEAKER) (test vxqj=961) 2.16 K/ L 1.56-6.13 LYMPHOCYTES ABSOLUTE COUNT (BEAKER) (test upbn=440) 0.60 K/ L 1.18-3.74 MONOCYTES ABSOLUTE COUNT (BEAKER) (test kguw=998) 0.27 K/ L 0.24-0.36 EOSINOPHILS ABSOLUTE COUNT (BEAKER) (test suhf=018) 0.07 K/ L 0.04-0.36 BASOPHILS ABSOLUTE COUNT (BEAKER) (test idmj=884) 0.01 K/ L 0.01-0.08 IMMATURE GRANULOCYTES-RELATIVE PERCENT (BEAKER) (test bjmq=7616) 1 % 0-1 POCT-GLUCOSE [id number] 06:57:00* Test Item Value Reference Range Comments POC-GLUCOSE METER (BEAKER) (test jqsk=7130) 397 mg/dL 70-110 TESTED AT [place] [id number] [facility] [address] POCT-GLUCOSE [id number] 16:48:00* Test Item Value Reference Range Comments POC-GLUCOSE METER (BEAKER) (test yhka=5642) 379 mg/dL 70-110 TESTED AT [address] [address] BASIC METABOLIC [id number] 11:48:00* Test Item Value Reference Range Comments SODIUM (BEAKER) (test amhx=787) 131 meq/L 136-145 POTASSIUM (BEAKER) (test rbac=911) 4.8 meq/L 3.5-5.1 CHLORIDE (BEAKER) (test nxsg=509) 108 meq/L 98-107 CO2 (BEAKER) (test lnaq=012) 16 meq/L 22-29 BLOOD UREA NITROGEN (BEAKER) (test vwgd=542) 39 mg/dL 7-21 CREATININE (BEAKER) (test chrv=930) 0.97 mg/dL 0.57-1.25 GLUCOSE RANDOM (BEAKER) (test rckb=723) 278 mg/dL 70-105 CALCIUM (BEAKER) (test pcul=331) 8.4 mg/dL 8.4-10.2 EGFR (BEAKER) (test tofw=5161) 61 mL/min/1.73 sq m ESTIMATED GFR IS NOT ACCURATE CREATININE CLEARANCE IN PREDICTING GLOMERULAR FILTRATION RATE. ESTIMATED GFR IS NOT APPLICABLE FOR DIALYSIS PATIENTS. Specimen slightly ictericCBC (HEMOGRAM ONLY)2017-08-06 11:26:00* Test Item Value Reference Range Comments WHITE BLOOD CELL COUNT (BEAKER) (test tkhz=471) 3.8 K/ L 3.5-10.5 RED BLOOD CELL COUNT (BEAKER) (test kfuu=669) 3.23 M/ L 3.93-5.22 HEMOGLOBIN (BEAKER) (test wket=919) 10.6 GM/DL 11.2-15.7 HEMATOCRIT (BEAKER) (test mmqs=248) 31.3 % 34.1-44.9 MEAN CORPUSCULAR VOLUME (BEAKER) (test ezrq=885) 96.9 fL 79.4-94.8 MEAN CORPUSCULAR HEMOGLOBIN (BEAKER) (test eopd=827) 32.8 pg 25.6-32.2 MEAN CORPUSCULAR HEMOGLOBIN CONC (BEAKER) (test momv=584) 33.9 GM/DL 32.2- 35.5 RED CELL DISTRIBUTION WIDTH (BEAKER) (test krpk=193) 14.6 % 11.7-14.4 PLATELET COUNT (BEAKER) (test numm=907) 73 K/CU MM 150-450 MEAN PLATELET VOLUME (BEAKER) (test bnok=417) 10.4 fL 9.4-12.3 NUCLEATED RED BLOOD CELLS (BEAKER) (test njrs=406) 0 /100 WBC 0-0 BLOOD [id number] 17:00:00* Test Item Value Reference Range Comments CULTURE (BEAKER) (test ifmn=8316) No growth in 5 days BLOOD [id number] 17:00:00* Test Item Value Reference Range Comments CULTURE (BEAKER) (test nnxn=7674) No growth in 5 days POCT-GLUCOSE [id number] 18:24:00* Test Item Value Reference Range Comments POC-GLUCOSE METER (BEAKER) (test zcrm=5597) 262 mg/dL 70-110 TESTED AT [place] [id number] [facility] [address] CBC W/PLT COUNT & AUTO [id number] 14:55:00* Test Item Value Reference Range Comments WHITE BLOOD CELL COUNT (BEAKER) (test vsqy=629) 2.3 K/ L 3.5-10.5 RED BLOOD CELL COUNT (BEAKER) (test klrb=027) 2.28 M/ L 3.93-5.22 HEMOGLOBIN (BEAKER) (test xhhu=970) 7.7 GM/DL 11.2-15.7 HEMATOCRIT (BEAKER) (test ufgn=927) 23.6 % 34.1-44.9 MEAN CORPUSCULAR VOLUME (BEAKER) (test pfuq=259) 103.5 fL 79.4-94.8 MEAN CORPUSCULAR HEMOGLOBIN (BEAKER) (test turl=162) 33.8 pg 25.6-32.2 MEAN CORPUSCULAR HEMOGLOBIN CONC (BEAKER) (test bjpe=838) 32.6 GM/DL 32.2- 35.5 RED CELL DISTRIBUTION WIDTH (BEAKER) (test uonu=966) 15.9 % 11.7-14.4 PLATELET COUNT (BEAKER) (test gcic=944) 57 K/CU MM 150-450 MEAN PLATELET VOLUME (BEAKER) (test dgqm=501) 10.7 fL 9.4-12.3 NUCLEATED RED BLOOD CELLS (BEAKER) (test atdx=767) 0 /100 WBC 0-0 NEUTROPHILS RELATIVE PERCENT (BEAKER) (test ewhm=533) 70 % LYMPHOCYTES RELATIVE PERCENT (BEAKER) (test dpdr=798) 18 % MONOCYTES RELATIVE PERCENT (BEAKER) (test rwmp=594) 7 % EOSINOPHILS RELATIVE PERCENT (BEAKER) (test wxuz=797) 3 % BASOPHILS RELATIVE PERCENT (BEAKER) (test ikeo=268) 0 % NEUTROPHILS ABSOLUTE COUNT (BEAKER) (test pfad=919) 1.63 K/ L 1.56-6.13 LYMPHOCYTES ABSOLUTE COUNT (BEAKER) (test awnd=760) 0.43 K/ L 1.18-3.74 MONOCYTES ABSOLUTE COUNT (BEAKER) (test gnfs=561) 0.17 K/ L 0.24-0.36 EOSINOPHILS ABSOLUTE COUNT (BEAKER) (test aliw=703) 0.08 K/ L 0.04-0.36 BASOPHILS ABSOLUTE COUNT (BEAKER) (test hhaf=607) 0.01 K/ L 0.01-0.08 IMMATURE GRANULOCYTES-RELATIVE PERCENT (BEAKER) (test truy=3106) 1 % 0-1 POCT-GLUCOSE [id number] 12:19:00* Test Item Value Reference Range Comments POC-GLUCOSE METER (BEAKER) (test ecxj=6655) 346 mg/dL 70-110 TESTED AT [address] [address] URINE [id number] 12:03:00* Test Item Value Reference Range Comments CULTURE (BEAKER) (test pjpk=9561) Ampicillin (test code=26) Linezolid (test code=40) Nitrofurantoin (test code=23) Tetracycline (test code=2) Vancomycin (test code=13) CULTURE (BEAKER) (test lvcy=3914) 80-89,000 col/mL Enterococcus species CULTURE (BEAKER) (test dyla=2691) 10-19,000 col/mL Yvette albicans POCT-GLUCOSE [id number] 07:41:00* Test Item Value Reference Range Comments POC-GLUCOSE METER (BEAKER) (test cbjo=5602) 237 mg/dL 70-110 TESTED AT [address] [address] COMPREHENSIVE METABOLIC [id number] 06:33:00* Test Item Value Reference Range Comments TOTAL PROTEIN (BEAKER) (test qaln=001) 4.5 gm/dL 6.0-8.3 ALBUMIN (BEAKER) (test lxje=6070) 1.8 g/dL 3.5-5.0 ALKALINE PHOSPHATASE (BEAKER) (test rgpt=300) 66 U/L 40-150 BILIRUBIN TOTAL (BEAKER) (test sjko=374) 1.7 mg/dL 0.2-1.2 SODIUM (BEAKER) (test gqtj=679) 131 meq/L 136-145 POTASSIUM (BEAKER) (test lsvs=785) 4.3 meq/L 3.5-5.1 CHLORIDE (BEAKER) (test iier=672) 101 meq/L 98-107 CO2 (BEAKER) (test ihld=837) 24 meq/L 22-29 BLOOD UREA NITROGEN (BEAKER) (test yuny=660) 22 mg/dL 7-21 CREATININE (BEAKER) (test ombj=438) 0.99 mg/dL 0.57-1.25 GLUCOSE RANDOM (BEAKER) (test zznn=519) 223 mg/dL 70-105 CALCIUM (BEAKER) (test ovac=792) 7.2 mg/dL 8.4-10.2 AST (SGOT) (BEAKER) (test zein=961) 21 U/L 5-34 ALT (SGPT) (BEAKER) (test jewh=686) 10 U/L 6-55 EGFR (BEAKER) (test qfjc=8075) 59 mL/min/1.73 sq m ESTIMATED GFR IS NOT ACCURATE CREATININE CLEARANCE IN PREDICTING GLOMERULAR FILTRATION RATE. ESTIMATED GFR IS NOT APPLICABLE FOR DIALYSIS PATIENTS. POCT-GLUCOSE [id number] 06:12:00* Test Item Value Reference Range Comments POC-GLUCOSE METER (BEAKER) (test vmgf=2457) 211 mg/dL 70-110 TESTED AT [address] [address] PROTHROMBIN [id number] 06:07:00* Test Item Value Reference Range Comments PROTIME (BEAKER) (test mqgf=282) 20.7 seconds 11.7-14.7 INR (BEAKER) (test fzjj=607) 1.8 <=5.9 RECOMMENDED COUMADIN/WARFARIN INR THERAPY RANGESSTANDARD DOSE: 2.0 - 3.0 Includes: PROPHYLAXIS for venous thrombosis, systemic embolization; TREATMENT for venous thrombosis and/or pulmonary embolus.HIGH RISK: Target INR is 2.5-3.5 for patients with mechanical heart valves.POCT-GLUCOSE [id number] 20:28:00 * Test Item Value Reference Range Comments POC-GLUCOSE METER (BEAKER) (test fryr=2843) 82 mg/dL 70-110 TESTED AT [place] [id number] [facility] [address] POCT-GLUCOSE [id number] 16:17:00* Test Item Value Reference Range Comments POC-GLUCOSE METER (BEAKER) (test yjhi=4984) 94 mg/dL 70-110 TESTED AT [facility] [address] [facility] [address] POCT-GLUCOSE [id number] 14:41:00* Test Item Value Reference Range Comments POC-GLUCOSE METER (BEAKER) (test okwv=3058) 99 mg/dL 70-110 TESTED AT [address] [address] SCREEN, [id number] 14:30:00* Test Item Value Reference Range Comments TEST URINE (BEAKER) (test rdlj=832) Negative RAD, CHEST, 1 VIEW, NON [id number] 13:21:00Reason for exam:->shortness of breathShould this be performed at the bedside?->YesFINAL REPORT EXAM: AP chest radiograph HISTORY PROVIDED: Shortness of breath COMPARISON: 03/28/2017 IMPRESSION:A right pleural effusion is stable to slightly worse since the previous examination. Focal rounded opacity, projecting over the right lower lung zone seen on the previous examination likely represents the patient's right nipple as a similar structure is seen on the left. This can be confirmed with a repeat PA and lateral chest radiograph with nipple markers. Interstitial opacities bilaterally demonstrate no significant change compatible with interstitial edema. No significant pleural fluid on the left however there are streaky opacities within the left lung base likely representing atelectasis. No discernible pneumothorax. The cardiac silhouette remains enlarged. No acute osseous abnormality. Signed: Paula Silva [facility] Verified Date/Time: 06/20/2017 13:21:06 Reading Location: [facility] Mammo Reading Room -GLUCOSE [id number] 11:41:00* Test Item Value Reference Range Comments POC-GLUCOSE METER (BEAKER) (test tnph=3766) 126 mg/dL 70-110 TESTED AT [facility] [address] [facility] [address] POCT-GLUCOSE [id number] 10:47:00* Test Item Value Reference Range Comments POC-GLUCOSE METER (BEAKER) (test oeok=5190) 55 mg/dL 70-110 TESTED AT [address] [address] POCT-GLUCOSE [id number] 08:48:00* Test Item Value Reference Range Comments POC-GLUCOSE METER (BEAKER) (test utoy=4185) 115 mg/dL 70-110 TESTED AT [address] [address] POCT-GLUCOSE [id number] 08:21:00* Test Item Value Reference Range Comments POC-GLUCOSE METER (BEAKER) (test rcbo=5330) 38 mg/dL 70-110 TESTED AT [address] [address] POCT-GLUCOSE [id number] 06:45:00* Test Item Value Reference Range Comments POC-GLUCOSE METER (BEAKER) (test omxz=0071) 108 mg/dL 70-110 TESTED AT [address] [address] ALPHA FETOPROTEIN (AFP), TUMOR [id number] 06:42:00* Test Item Value Reference Range Comments ALPHA-FETOPROTEIN (BEAKER) (test dixh=3708) < ng/mL <10.0 COMPREHENSIVE METABOLIC [id number] 06:17:00* Test Item Value Reference Range Comments TOTAL PROTEIN (BEAKER) (test pjrq=292) 5.0 gm/dL 6.0-8.3 ALBUMIN (BEAKER) (test tyjy=0843) 2.0 g/dL 3.5-5.0 ALKALINE PHOSPHATASE (BEAKER) (test uuaq=170) 73 U/L 40-150 BILIRUBIN TOTAL (BEAKER) (test uwgh=725) 2.1 mg/dL 0.2-1.2 SODIUM (BEAKER) (test iuxp=235) 132 meq/L 136-145 POTASSIUM (BEAKER) (test fyjv=616) 3.1 meq/L 3.5-5.1 CHLORIDE (BEAKER) (test hkwh=262) 101 meq/L 98-107 CO2 (BEAKER) (test qruw=349) 23 meq/L 22-29 BLOOD UREA NITROGEN (BEAKER) (test kuom=972) 20 mg/dL 7-21 CREATININE (BEAKER) (test xjng=040) 0.95 mg/dL 0.57-1.25 GLUCOSE RANDOM (BEAKER) (test mrun=705) 161 mg/dL 70-105 CALCIUM (BEAKER) (test duxk=379) 7.6 mg/dL 8.4-10.2 AST (SGOT) (BEAKER) (test wvkh=938) 23 U/L 5-34 ALT (SGPT) (BEAKER) (test auqb=268) 11 U/L 6-55 EGFR (BEAKER) (test tyzc=6811) 62 mL/min/1.73 sq m ESTIMATED GFR IS NOT ACCURATE CREATININE CLEARANCE IN PREDICTING GLOMERULAR FILTRATION RATE. ESTIMATED GFR IS NOT APPLICABLE FOR DIALYSIS PATIENTS. Specimen slightly ictericPROTHROMBIN TIME/[id number] 05:51:00* Test Item Value Reference Range Comments PROTIME (BEAKER) (test ubdr=495) 19.5 seconds 11.7-14.7 INR (BEAKER) (test xsqs=240) 1.7 <=5.9 RECOMMENDED COUMADIN/WARFARIN INR THERAPY RANGESSTANDARD DOSE: 2.0 - 3.0 Includes: PROPHYLAXIS for venous thrombosis, systemic embolization; TREATMENT for venous thrombosis and/or pulmonary embolus.HIGH RISK: Target INR is 2.5-3.5 for patients with mechanical heart valves.HEMOGLOBIN AND [id number] 05 :36:00* Test Item Value Reference Range Comments HEMOGLOBIN (BEAKER) (test julk=676) 8.8 GM/DL 11.2-15.7 HEMATOCRIT (BEAKER) (test vzbt=151) 27.9 % 34.1-44.9 Please notify hospitalist if Hgb <7. Thank you.CBC W/PLT COUNT & AUTO [id number] 05:36:00* Test Item Value Reference Range Comments WHITE BLOOD CELL COUNT (BEAKER) (test vyzu=690) 4.1 K/ L 3.5-10.5 RED BLOOD CELL COUNT (BEAKER) (test nbvk=850) 2.62 M/ L 3.93-5.22 HEMOGLOBIN (BEAKER) (test fwsn=554) 8.8 GM/DL 11.2-15.7 HEMATOCRIT (BEAKER) (test uojg=960) 27.9 % 34.1-44.9 MEAN CORPUSCULAR VOLUME (BEAKER) (test uabv=560) 106.5 fL 79.4-94.8 MEAN CORPUSCULAR HEMOGLOBIN (BEAKER) (test zjjt=397) 33.6 pg 25.6-32.2 MEAN CORPUSCULAR HEMOGLOBIN CONC (BEAKER) (test icms=457) 31.5 GM/DL 32.2- 35.5 RED CELL DISTRIBUTION WIDTH (BEAKER) (test wbkt=983) 15.8 % 11.7-14.4 PLATELET COUNT (BEAKER) (test fwni=609) 59 K/CU MM 150-450 MEAN PLATELET VOLUME (BEAKER) (test wnlp=814) 10.2 fL 9.4-12.3 NUCLEATED RED BLOOD CELLS (BEAKER) (test jpvk=994) 0 /100 WBC 0-0 NEUTROPHILS RELATIVE PERCENT (BEAKER) (test eqsw=360) 70 % LYMPHOCYTES RELATIVE PERCENT (BEAKER) (test ixzc=852) 16 % MONOCYTES RELATIVE PERCENT (BEAKER) (test wvub=749) 8 % EOSINOPHILS RELATIVE PERCENT (BEAKER) (test durh=725) 4 % BASOPHILS RELATIVE PERCENT (BEAKER) (test ckow=641) 1 % NEUTROPHILS ABSOLUTE COUNT (BEAKER) (test pcbj=217) 2.87 K/ L 1.56-6.13 LYMPHOCYTES ABSOLUTE COUNT (BEAKER) (test nwnn=441) 0.66 K/ L 1.18-3.74 MONOCYTES ABSOLUTE COUNT (BEAKER) (test trnz=405) 0.32 K/ L 0.24-0.36 EOSINOPHILS ABSOLUTE COUNT (BEAKER) (test pgpj=038) 0.18 K/ L 0.04-0.36 BASOPHILS ABSOLUTE COUNT (BEAKER) (test bkdz=148) 0.03 K/ L 0.01-0.08 IMMATURE GRANULOCYTES-RELATIVE PERCENT (BEAKER) (test kcmj=2083) 2 % 0-1 POCT-GLUCOSE [id number] 04:45:00* Test Item Value Reference Range Comments POC-GLUCOSE METER (BEAKER) (test dnby=5923) 37 mg/dL 70-110 TESTED AT [facility] [address] [facility] [address] POCT-GLUCOSE [id number] 00:34:00* Test Item Value Reference Range Comments POC-GLUCOSE METER (BEAKER) (test akbo=7682) 213 mg/dL 70-110 TESTED AT [facility] [address] [facility] SYSTEM [address] HEMOGLOBIN AND [id number] 23:57:00* Test Item Value Reference Range Comments HEMOGLOBIN (BEAKER) (test lkax=626) 8.3 GM/DL 11.2-15.7 HEMATOCRIT (BEAKER) (test vjtp=988) 25.4 % 34.1-44.9 Please notify hospitalist if Hgb <7. Thank you.POCT-GLUCOSE [id number] 21: 44:00* Test Item Value Reference Range Comments POC-GLUCOSE METER (BEAKER) (test fmoi=9859) 462 mg/dL 70-110 TESTED AT [place] [id number] POCT-GLUCOSE [id number] 17:25:00* Test Item Value Reference Range Comments POC-GLUCOSE METER (BEAKER) (test nqll=3880) 460 mg/dL 70-110 TESTED AT [place] [address] [id number] 14:23:00* Test Item Value Reference Range Comments PREALBUMIN (BEAKER) (test ebtx=219) 5 mg/dL 14-45 Listed for liver transplant - nutrition surveillance ([facility] hepatology)HEMOGLOBIN AND [id number] 14:04:00* Test Item Value Reference Range Comments HEMOGLOBIN (BEAKER) (test xvcl=193) 8.1 GM/DL 11.2-15.7 HEMATOCRIT (BEAKER) (test xgbp=213) 25.5 % 34.1-44.9 Please notify hospitalist if Hgb <7. Thank you.POCT-GLUCOSE [id number] 12: 01:00* Test Item Value Reference Range Comments POC-GLUCOSE METER (BEAKER) (test kbpf=7682) > mg/dL 70-110 OUTSIDE MEASURING RANGETESTED AT [address] [address] HEMOGLOBIN [id number] 10:33:00* Test Item Value Reference Range Comments HEMOGLOBIN A1C (BEAKER) (test wdsk=019) 7.0 % 4.3-6.1 U/S, ABDOMINAL, [id number] 09:31:00Reason for exam:->GI BLEEDINGFINAL REPORT History: Ascites COMPARISON: None DISCUSSION: Transverse and longitudinal images of all four quadrants of the abdomen and pelvis were obtained. There is a trace amount of abdominal ascites/free fluid which is insufficient for the performance of a safe ultrasound-guided paracentesis. Therefore, an ultrasound-guided paracentesis was not performed. IMPRESSION: Trace amount of abdominal ascites/free fluid, insufficient for the performance of a safe ultrasound-guided paracentesis. Signed: Surekha Perlaeport Verified Date/Time: 06/19/2017 09:31:35 Reading Location: [facility] [id number] Ultrasound Reading Room W/PLT COUNT & AUTO [id number] 09:03:00* Test Item Value Reference Range Comments WHITE BLOOD CELL COUNT (BEAKER) (test cbtj=782) 2.5 K/ L 3.5-10.5 RED BLOOD CELL COUNT (BEAKER) (test klrx=441) 2.26 M/ L 3.93-5.22 HEMOGLOBIN (BEAKER) (test umqa=160) 7.6 GM/DL 11.2-15.7 HEMATOCRIT (BEAKER) (test myme=985) 24.2 % 34.1-44.9 MEAN CORPUSCULAR VOLUME (BEAKER) (test cupg=199) 107.1 fL 79.4-94.8 MEAN CORPUSCULAR HEMOGLOBIN (BEAKER) (test trrg=433) 33.6 pg 25.6-32.2 MEAN CORPUSCULAR HEMOGLOBIN CONC (BEAKER) (test nukb=512) 31.4 GM/DL 32.2- 35.5 RED CELL DISTRIBUTION WIDTH (BEAKER) (test qahc=393) 15.9 % 11.7-14.4 PLATELET COUNT (BEAKER) (test vcof=403) 62 K/CU MM 150-450 MEAN PLATELET VOLUME (BEAKER) (test vukg=354) 11.4 fL 9.4-12.3 NUCLEATED RED BLOOD CELLS (BEAKER) (test uzap=424) 0 /100 WBC 0-0 NEUTROPHILS RELATIVE PERCENT (BEAKER) (test rbkc=293) 66 % LYMPHOCYTES RELATIVE PERCENT (BEAKER) (test ewzm=845) 21 % MONOCYTES RELATIVE PERCENT (BEAKER) (test ejyi=773) 8 % EOSINOPHILS RELATIVE PERCENT (BEAKER) (test nfpt=989) 4 % BASOPHILS RELATIVE PERCENT (BEAKER) (test aych=635) 0 % NEUTROPHILS ABSOLUTE COUNT (BEAKER) (test ggie=064) 1.62 K/ L 1.56-6.13 LYMPHOCYTES ABSOLUTE COUNT (BEAKER) (test qycs=703) 0.51 K/ L 1.18-3.74 MONOCYTES ABSOLUTE COUNT (BEAKER) (test svzu=034) 0.19 K/ L 0.24-0.36 EOSINOPHILS ABSOLUTE COUNT (BEAKER) (test ybmc=731) 0.10 K/ L 0.04-0.36 BASOPHILS ABSOLUTE COUNT (BEAKER) (test uvve=436) 0.01 K/ L 0.01-0.08 IMMATURE GRANULOCYTES-RELATIVE PERCENT (BEAKER) (test yosv=4698) 2 % 0-1 (MANUAL DIFFERENTIAL)2017-06-19 09:03:00* Test Item Value Reference Range Comments TOTAL COUNTED (BEAKER) (test wvbr=0796) COMPREHENSIVE METABOLIC [id number] 06:26:00* Test Item Value Reference Range Comments TOTAL PROTEIN (BEAKER) (test hgfr=759) 4.7 gm/dL 6.0-8.3 Specimen slightly hemolyzed ALBUMIN (BEAKER) (test jqmf=7429) 1.9 g/dL 3.5-5.0 Specimen slightly hemolyzed ALKALINE PHOSPHATASE (BEAKER) (test xbnw=299) 71 U/L 40-150 BILIRUBIN TOTAL (BEAKER) (test tppi=168) 2.1 mg/dL 0.2-1.2 Specimen slightly hemolyzed SODIUM (BEAKER) (test ajxq=234) 133 meq/L 136-145 POTASSIUM (BEAKER) (test jetl=203) 4.0 meq/L 3.5-5.1 Specimen slightly hemolyzed CHLORIDE (BEAKER) (test bukh=105) 104 meq/L 98-107 CO2 (BEAKER) (test wyjs=098) 24 meq/L 22-29 BLOOD UREA NITROGEN (BEAKER) (test fqgz=883) 19 mg/dL 7-21 CREATININE (BEAKER) (test yzdi=238) 0.84 mg/dL 0.57-1.25 Specimen slightly hemolyzed GLUCOSE RANDOM (BEAKER) (test kktm=092) 269 mg/dL 70-105 CALCIUM (BEAKER) (test hhpc=258) 8.1 mg/dL 8.4-10.2 AST (SGOT) (BEAKER) (test epvp=576) 24 U/L 5-34 Specimen slightly hemolyzed ALT (SGPT) (BEAKER) (test gcpa=242) 10 U/L 6-55 Specimen slightly hemolyzed EGFR (BEAKER) (test gqwj=6056) 72 mL/min/1.73 sq m ESTIMATED GFR IS NOT ACCURATE CREATININE CLEARANCE IN PREDICTING GLOMERULAR FILTRATION RATE. ESTIMATED GFR IS NOT APPLICABLE FOR DIALYSIS PATIENTS. Specimen slightly [id number] 06:23:00* Test Item Value Reference Range Comments MAGNESIUM (BEAKER) (test sskt=209) 1.3 mg/dL 1.6-2.6 Specimen slightly hemolyzed [id number] 06:23:00* Test Item Value Reference Range Comments PHOSPHORUS (BEAKER) (test xbwm=450) 3.1 mg/dL 2.3-4.7 Specimen slightly hemolyzed PROTHROMBIN TIME/[id number] 05:38:00* Test Item Value Reference Range Comments PROTIME (BEAKER) (test kect=668) 19.8 seconds 11.7-14.7 INR (BEAKER) (test djfy=806) 1.7 <=5.9 RECOMMENDED COUMADIN/WARFARIN INR THERAPY RANGESSTANDARD DOSE: 2.0 - 3.0 Includes: PROPHYLAXIS for venous thrombosis, systemic embolization; TREATMENT for venous thrombosis and/or pulmonary embolus.HIGH RISK: Target INR is 2.5-3.5 for patients with mechanical heart valves.POCT-GLUCOSE [id number] 05:21:00 * Test Item Value Reference Range Comments POC-GLUCOSE METER (BEAKER) (test odbn=1575) 255 mg/dL 70-110 TESTED AT [address] [address] HEMOGLOBIN AND [id number] 01:48:00* Test Item Value Reference Range Comments HEMOGLOBIN (BEAKER) (test ouht=628) 7.7 GM/DL 11.2-15.7 HEMATOCRIT (BEAKER) (test ritn=583) 24.7 % 34.1-44.9 Please notify hospitalist if Hgb <7. Thank you.URINALYSIS W/ [id number] 00:29:00* Test Item Value Reference Range Comments COLOR (BEAKER) (test paoe=254) Yellow CLARITY (BEAKER) (test bhty=190) Clear SPECIFIC GRAVITY UA (BEAKER) (test qjpy=936) 1.008 1.001-1.035 PH UA (BEAKER) (test onwd=764) 7.0 5.0-8.0 PROTEIN UA (BEAKER) (test cqdp=043) Negative Negative GLUCOSE UA (BEAKER) (test kmjy=097) Negative Negative KETONES UA (BEAKER) (test vbiq=980) Negative Negative BILIRUBIN UA (BEAKER) (test txwx=621) Negative Negative BLOOD UA (BEAKER) (test pgji=862) Trace Negative NITRITE UA (BEAKER) (test zulu=082) Negative Negative LEUKOCYTE ESTERASE UA (BEAKER) (test vrwm=949) Small Negative UROBILINOGEN UA (BEAKER) (test pehl=042) 0.2 mg/dL 0.2-1.0 RBC UA (BEAKER) (test gqyj=451) 3 /HPF WBC UA (BEAKER) (test pikc=631) 3 /HPF BACTERIA (BEAKER) (test rwcl=034) Rare SQUAMOUS EPITHELIAL (BEAKER) (test lpmr=250) 2 /HPF SOURCE(BEAKER) (test ejpj=2772) [id number] 00:06:00* Test Item Value Reference Range Comments MAGNESIUM (BEAKER) (test nond=370) 1.3 mg/dL 1.6-2.6 U/S, ABDOMINAL, [id number] 22:57:00Reason for exam:->GI BLEEDINGReason for exam:->with doppler -rule out portal vein thombosis and hepatic vein thrombusFINAL REPORT TECHNIQUE: Grayscale ultrasound of the abdomen with color Doppler and spectral Doppler ultrasound of the portal/ hepatic vasculature. INDICATION: 51-year-old woman with gastrointestinal bleeding. COMPARISON: Abdomen MRI 01/30/2017. FINDINGS: LIVER: Nodular cirrhotic liver. No focal liver lesions. HEPATIC VASCULATURE: Main portal vein measures 1.2 cm. Portal veins are patent with reversed hepatofugal flow. Flow velocity in the main portal vein is within normal limits. The hepatic arteries are patent. The resistive indices in the proper, common right, and left hepatic arteries are slightly elevated at 0.8. Acceleration time within the proper hepatic artery is within normal limits. The hepatic veins and confluence are patent. BILIARY:Gallbladder: Prior cholecystectomy.Common bile duct is not clearly visualized. No intrahepatic biliary ductal dilatation. PANCREAS: Visualized portions of the pancreas are unremarkable. SPLEEN: Enlarged, measuring 16.7 cm. PERITONEUM: Small-moderate volume ascites. KIDNEYS: Normal in size bilaterally. No hydronephrosis. No sonographically evident solid mass lesion. Hyperechoic renal pyramids bilaterally. Renal cysts measure up to 1.7 x 1.5 x 1.4 cm on the right and 1.5 x 1.3 x 1.5 cm on the left. MIDLINE VASCULATURE: The visualized inferior vena cava is patent. Visualized portions of the abdominal aorta are patent and within normal limits in caliber. Dilated splenic vein is patent with reversed hepatofugal flow. Dilated perisplenic varices. Splenic artery is patent. IMPRESSION:Cirrhosis with portal hypertension and small-moderate volume ascites. Portal and hepatic veins are patent. Slight elevation of the resistive indices in the hepatic arteries, likely secondary to cirrhosis. Suspected medullary nephrocalcinosis bilaterally. Differential considerations include hyperparathyroidism, medullary sponge kidney, and renal tubular acidosis. Signed: María Bowman MDReport Verified Date/Time: 06/18/2017 22:57:43 Reading Location: [address] Consult Reading Room Electronically signed by: MARÍA BOWMAN MD on 2016 10:57 PM U/S, DUPLEX, [id number] 22:57:00Reason for exam:->GI BLEEDINGFINAL REPORT TECHNIQUE: Grayscale ultrasound of the abdomen with color Doppler and spectral Doppler ultrasound of the portal/ hepatic vasculature. INDICATION: 51-year-old woman with gastrointestinal bleeding. COMPARISON: Abdomen MRI 01/30/2017. FINDINGS: LIVER: Nodular cirrhotic liver. No focal liver lesions. HEPATIC VASCULATURE: Main portal vein measures 1.2 cm. Portal veins are patent with reversed hepatofugal flow. Flow velocity in the main portal vein is within normal limits. The hepatic arteries are patent. The resistive indices in the proper, common right, and left hepatic arteries are slightly elevated at 0.8. Acceleration time within the proper hepatic artery is within normal limits. The hepatic veins and confluence are patent. BILIARY:Gallbladder: Prior cholecystectomy.Common bile duct is not clearly visualized. No intrahepatic biliary ductal dilatation. PANCREAS: Visualized portions of the pancreas are unremarkable. SPLEEN: Enlarged, measuring 16.7 cm. PERITONEUM: Small-moderate volume ascites. KIDNEYS: Normal in size bilaterally. No hydronephrosis. No sonographically evident solid mass lesion. Hyperechoic renal pyramids bilaterally. Renal cysts measure up to 1.7 x 1.5 x 1.4 cm on the right and 1.5 x 1.3 x 1.5 cm on the left. MIDLINE VASCULATURE: The visualized inferior vena cava is patent. Visualized portions of the abdominal aorta are patent and within normal limits in caliber. Dilated splenic vein is patent with reversed hepatofugal flow. Dilated perisplenic varices. Splenic artery is patent. IMPRESSION:Cirrhosis with portal hypertension and small-moderate volume ascites. Portal and hepatic veins are patent. Slight elevation of the resistive indices in the hepatic arteries, likely secondary to cirrhosis. Suspected medullary nephrocalcinosis bilaterally. Differential considerations include hyperparathyroidism, medullary sponge kidney, and renal tubular acidosis. Signed: María Bowman MDReport Verified Date/Time: 06/18/2017 22:57:43 Reading Location: [address] Consult Reading Room Electronically signed by: MARÍA BOWMAN MD on 2016 10:57 PM POCT-GLUCOSE [id number] 17:12:00* Test Item Value Reference Range Comments POC-GLUCOSE METER (BEAKER) (test juuv=2848) 362 mg/dL 70-110 TESTED AT [address] [address] BASIC METABOLIC [id number] 15:58:00* Test Item Value Reference Range Comments SODIUM (BEAKER) (test hndx=001) 134 meq/L 136-145 POTASSIUM (BEAKER) (test qycj=621) 4.8 meq/L 3.5-5.1 Specimen slightly hemolyzed CHLORIDE (BEAKER) (test txzz=550) 103 meq/L 98-107 CO2 (BEAKER) (test vrwu=066) 24 meq/L 22-29 BLOOD UREA NITROGEN (BEAKER) (test tbmg=490) 23 mg/dL 7-21 CREATININE (BEAKER) (test aaog=135) 1.08 mg/dL 0.57-1.25 Specimen slightly hemolyzed GLUCOSE RANDOM (BEAKER) (test xyjr=176) 409 mg/dL 70-105 CALCIUM (BEAKER) (test xtyw=354) 8.7 mg/dL 8.4-10.2 EGFR (BEAKER) (test moti=9488) 54 mL/min/1.73 sq m ESTIMATED GFR IS NOT ACCURATE CREATININE CLEARANCE IN PREDICTING GLOMERULAR FILTRATION RATE. ESTIMATED GFR IS NOT APPLICABLE FOR DIALYSIS PATIENTS. Specimen slightly [id number] 15:44:00* Test Item Value Reference Range Comments MAGNESIUM (BEAKER) (test jcex=539) 1.5 mg/dL 1.6-2.6 Specimen slightly hemolyzed HEPATIC FUNCTION [id number] 15:44:00* Test Item Value Reference Range Comments TOTAL PROTEIN (BEAKER) (test jhrb=029) 5.5 gm/dL 6.0-8.3 Specimen slightly hemolyzed ALBUMIN (BEAKER) (test bgkc=2305) 2.2 g/dL 3.5-5.0 Specimen slightly hemolyzed BILIRUBIN TOTAL (BEAKER) (test cbam=517) 2.3 mg/dL 0.2-1.2 Specimen slightly hemolyzed BILIRUBIN DIRECT (BEAKER) (test kvif=310) 1.2 mg/dL 0.1-0.5 Specimen slightly hemolyzed ALKALINE PHOSPHATASE (BEAKER) (test qvcn=211) 85 U/L 40-150 AST (SGOT) (BEAKER) (test vsnt=341) 24 U/L 5-34 Specimen slightly hemolyzed ALT (SGPT) (BEAKER) (test fykw=084) 13 U/L 6-55 Specimen slightly hemolyzed Specimen slightly [id number] 15:44:00* Test Item Value Reference Range Comments AMYLASE (BEAKER) (test vsrv=082) 43 U/L 25-125 Specimen slightly hemolyzed Specimen slightly [id number] 15:44:00* Test Item Value Reference Range Comments LIPASE (BEAKER) (test dwxy=270) 43 U/L 8-78 Specimen slightly ictericPT/[id number] 15:33:00* Test Item Value Reference Range Comments PROTIME (BEAKER) (test jcnk=342) 20.7 seconds 11.7-14.7 INR (BEAKER) (test tati=103) 1.8 <=5.9 PARTIAL THROMBOPLASTIN TIME (BEAKER) (test otjw=530) 33.9 seconds 22.5-36.0 RECOMMENDED COUMADIN/WARFARIN INR THERAPY RANGESSTANDARD DOSE: 2.0 - 3.0 Includes: PROPHYLAXIS for venous thrombosis, systemic embolization; TREATMENT for venous thrombosis and/or pulmonary embolus.HIGH RISK: Target INR is 2.5-3.5 for patients with mechanical heart valves.CBC W/PLT COUNT & AUTO [id number] 15:21:00* Test Item Value Reference Range Comments WHITE BLOOD CELL COUNT (BEAKER) (test atvh=591) 3.4 K/ L 3.5-10.5 RED BLOOD CELL COUNT (BEAKER) (test ozoe=564) 2.52 M/ L 3.93-5.22 HEMOGLOBIN (BEAKER) (test zuhg=677) 8.5 GM/DL 11.2-15.7 HEMATOCRIT (BEAKER) (test izvo=970) 26.1 % 34.1-44.9 MEAN CORPUSCULAR VOLUME (BEAKER) (test ejgi=897) 103.6 fL 79.4-94.8 MEAN CORPUSCULAR HEMOGLOBIN (BEAKER) (test rdki=227) 33.7 pg 25.6-32.2 MEAN CORPUSCULAR HEMOGLOBIN CONC (BEAKER) (test lzrl=227) 32.6 GM/DL 32.2- 35.5 RED CELL DISTRIBUTION WIDTH (BEAKER) (test xjxa=344) 15.6 % 11.7-14.4 PLATELET COUNT (BEAKER) (test uiyf=090) 59 K/CU MM 150-450 MEAN PLATELET VOLUME (BEAKER) (test lokf=468) 11.2 fL 9.4-12.3 NUCLEATED RED BLOOD CELLS (BEAKER) (test ryaf=882) 0 /100 WBC 0-0 NEUTROPHILS RELATIVE PERCENT (BEAKER) (test wbgw=118) 76 % LYMPHOCYTES RELATIVE PERCENT (BEAKER) (test sbns=937) 13 % MONOCYTES RELATIVE PERCENT (BEAKER) (test japk=383) 7 % EOSINOPHILS RELATIVE PERCENT (BEAKER) (test lcuk=659) 2 % BASOPHILS RELATIVE PERCENT (BEAKER) (test viot=588) 1 % NEUTROPHILS ABSOLUTE COUNT (BEAKER) (test lagf=403) 2.61 K/ L 1.56-6.13 LYMPHOCYTES ABSOLUTE COUNT (BEAKER) (test wcrd=009) 0.45 K/ L 1.18-3.74 MONOCYTES ABSOLUTE COUNT (BEAKER) (test nraq=627) 0.24 K/ L 0.24-0.36 EOSINOPHILS ABSOLUTE COUNT (BEAKER) (test wlnn=192) 0.06 K/ L 0.04-0.36 BASOPHILS ABSOLUTE COUNT (BEAKER) (test manl=578) 0.02 K/ L 0.01-0.08 IMMATURE GRANULOCYTES-RELATIVE PERCENT (BEAKER) (test hvkg=3385) 1 % 0-1 CBC (HEMOGRAM ONLY)2017-05-07 08:05:00* Test Item Value Reference Range Comments WHITE BLOOD CELL COUNT (BEAKER) (test ycsl=222) 3.3 K/ L 3.5-10.5 RED BLOOD CELL COUNT (BEAKER) (test dbjv=699) 2.42 M/ L 3.93-5.22 HEMOGLOBIN (BEAKER) (test lfir=683) 8.4 GM/DL 11.2-15.7 HEMATOCRIT (BEAKER) (test bbik=657) 25.7 % 34.1-44.9 MEAN CORPUSCULAR VOLUME (BEAKER) (test lwnv=805) 106.2 fL 79.4-94.8 MEAN CORPUSCULAR HEMOGLOBIN (BEAKER) (test lnrd=499) 34.7 pg 25.6-32.2 MEAN CORPUSCULAR HEMOGLOBIN CONC (BEAKER) (test kxig=078) 32.7 GM/DL 32.2- 35.5 RED CELL DISTRIBUTION WIDTH (BEAKER) (test ghuk=609) 17.2 % 11.7-14.4 PLATELET COUNT (BEAKER) (test pmyz=698) 53 K/CU MM 150-450 MEAN PLATELET VOLUME (BEAKER) (test ktxh=982) 11.2 fL 9.4-12.3 NUCLEATED RED BLOOD CELLS (BEAKER) (test dxxi=175) 0 /100 WBC 0-0 BASIC METABOLIC [id number] 08:02:00* Test Item Value Reference Range Comments SODIUM (BEAKER) (test wewm=627) 135 meq/L 136-145 POTASSIUM (BEAKER) (test phjj=792) 4.3 meq/L 3.5-5.1 Specimen slightly hemolyzed CHLORIDE (BEAKER) (test zlag=149) 107 meq/L 98-107 CO2 (BEAKER) (test nahd=494) 26 meq/L 22-29 BLOOD UREA NITROGEN (BEAKER) (test gzyi=819) 24 mg/dL 7-21 CREATININE (BEAKER) (test ojsi=052) 0.75 mg/dL 0.57-1.25 Specimen slightly hemolyzed GLUCOSE RANDOM (BEAKER) (test xhdu=941) 242 mg/dL 70-105 CALCIUM (BEAKER) (test klfz=182) 8.4 mg/dL 8.4-10.2 EGFR (BEAKER) (test ooff=0686) 82 mL/min/1.73 sq m ESTIMATED GFR IS NOT ACCURATE CREATININE CLEARANCE IN PREDICTING GLOMERULAR FILTRATION RATE. ESTIMATED GFR IS NOT APPLICABLE FOR DIALYSIS PATIENTS. POCT-GLUCOSE [id number] 15:48:00* Test Item Value Reference Range Comments POC-GLUCOSE METER (BEAKER) (test zuce=7841) 330 mg/dL 70-110 Notified SELVIN JACOBSON/ TESTED AT [place] [id number] POCT-GLUCOSE [id number] 11:52:00* Test Item Value Reference Range Comments POC-GLUCOSE METER (BEAKER) (test jbsa=4040) 125 mg/dL 70-110 TESTED AT [address] [address] POCT-GLUCOSE [id number] 07:52:00* Test Item Value Reference Range Comments POC-GLUCOSE METER (BEAKER) (test ggkb=7239) 108 mg/dL 70-110 TESTED AT [address] [address] POCT-GLUCOSE [id number] 07:44:00* Test Item Value Reference Range Comments POC-GLUCOSE METER (BEAKER) (test ihaw=6813) 49 mg/dL 70-110 TESTED AT [address] [address] BASIC METABOLIC [id number] 07:22:00* Test Item Value Reference Range Comments SODIUM (BEAKER) (test cdqr=694) 138 meq/L 136-145 POTASSIUM (BEAKER) (test mnnf=713) 3.3 meq/L 3.5-5.1 CHLORIDE (BEAKER) (test ctyo=289) 109 meq/L 98-107 CO2 (BEAKER) (test gbhn=222) 24 meq/L 22-29 BLOOD UREA NITROGEN (BEAKER) (test udhf=413) 20 mg/dL 7-21 CREATININE (BEAKER) (test xqlg=906) 0.85 mg/dL 0.57-1.25 GLUCOSE RANDOM (BEAKER) (test dfwv=954) 71 mg/dL 70-105 CALCIUM (BEAKER) (test syqd=176) 7.6 mg/dL 8.4-10.2 EGFR (BEAKER) (test hvto=9120) 71 mL/min/1.73 sq m ESTIMATED GFR IS NOT ACCURATE CREATININE CLEARANCE IN PREDICTING GLOMERULAR FILTRATION RATE. ESTIMATED GFR IS NOT APPLICABLE FOR DIALYSIS PATIENTS. Specimen slightly [id number] 07:17:00* Test Item Value Reference Range Comments PHOSPHORUS (BEAKER) (test yfjk=390) 2.6 mg/dL 2.3-4.7 [id number] 07:17:00* Test Item Value Reference Range Comments MAGNESIUM (BEAKER) (test mhwc=814) 1.7 mg/dL 1.6-2.6 CBC W/PLT COUNT & AUTO [id number] 07:02:00* Test Item Value Reference Range Comments WHITE BLOOD CELL COUNT (BEAKER) (test ccxe=975) 3.6 K/ L 3.5-10.5 RED BLOOD CELL COUNT (BEAKER) (test lnfa=524) 2.36 M/ L 3.93-5.22 HEMOGLOBIN (BEAKER) (test piib=343) 7.8 GM/DL 11.2-15.7 HEMATOCRIT (BEAKER) (test jepv=819) 25.0 % 34.1-44.9 MEAN CORPUSCULAR VOLUME (BEAKER) (test hsea=507) 105.9 fL 79.4-94.8 MEAN CORPUSCULAR HEMOGLOBIN (BEAKER) (test gkkm=123) 33.1 pg 25.6-32.2 MEAN CORPUSCULAR HEMOGLOBIN CONC (BEAKER) (test mtqi=759) 31.2 GM/DL 32.2- 35.5 RED CELL DISTRIBUTION WIDTH (BEAKER) (test gmeq=819) 16.8 % 11.7-14.4 PLATELET COUNT (BEAKER) (test evnl=641) 39 K/CU MM 150-450 MEAN PLATELET VOLUME (BEAKER) (test mofq=841) 13.0 fL 9.4-12.3 NUCLEATED RED BLOOD CELLS (BEAKER) (test biwa=343) 0 /100 WBC 0-0 NEUTROPHILS RELATIVE PERCENT (BEAKER) (test tsrx=229) 75 % LYMPHOCYTES RELATIVE PERCENT (BEAKER) (test ewlj=578) 13 % MONOCYTES RELATIVE PERCENT (BEAKER) (test fpma=371) 7 % EOSINOPHILS RELATIVE PERCENT (BEAKER) (test yrjx=410) 3 % BASOPHILS RELATIVE PERCENT (BEAKER) (test gjyt=149) 0 % NEUTROPHILS ABSOLUTE COUNT (BEAKER) (test yqcx=174) 2.70 K/ L 1.56-6.13 LYMPHOCYTES ABSOLUTE COUNT (BEAKER) (test psoq=129) 0.48 K/ L 1.18-3.74 MONOCYTES ABSOLUTE COUNT (BEAKER) (test mggz=318) 0.24 K/ L 0.24-0.36 EOSINOPHILS ABSOLUTE COUNT (BEAKER) (test zfat=356) 0.09 K/ L 0.04-0.36 BASOPHILS ABSOLUTE COUNT (BEAKER) (test wdok=890) 0.01 K/ L 0.01-0.08 IMMATURE GRANULOCYTES-RELATIVE PERCENT (BEAKER) (test mswq=1346) 3 % 0-1 CALCIUM, [id number] 06:22:00* Test Item Value Reference Range Comments CALCIUM IONIZED (BEAKER) (test jdmo=263) 1.05 mmol/L 1.12-1.27 PH, BLOOD (BEAKER) (test ecey=6450) 7.50 POCT-GLUCOSE [id number] 20:41:00* Test Item Value Reference Range Comments POC-GLUCOSE METER (BEAKER) (test ehaz=6690) 378 mg/dL 70-110 Notified SELVIN JACOBSON/ TESTED AT [address] [address] POCT-GLUCOSE [id number] 20:19:00* Test Item Value Reference Range Comments POC-GLUCOSE METER (BEAKER) (test tuig=4005) 280 mg/dL 70-110 TESTED AT [address] [address] POCT-GLUCOSE [id number] 20:16:00* Test Item Value Reference Range Comments POC-GLUCOSE METER (BEAKER) (test yzjm=5546) 255 mg/dL 70-110 TESTED AT [address] [address] POCT-GLUCOSE [id number] 20:11:00* Test Item Value Reference Range Comments POC-GLUCOSE METER (BEAKER) (test iknb=1314) 166 mg/dL 70-110 TESTED AT [facility] [address] [facility] [address] POCT-GLUCOSE [id number] 20:10:00* Test Item Value Reference Range Comments POC-GLUCOSE METER (BEAKER) (test uqlm=5063) 48 mg/dL 70-110 Notified SELVIN JACOBSON/ TESTED AT [address] [address] POCT-GLUCOSE [id number] 19:59:00* Test Item Value Reference Range Comments POC-GLUCOSE METER (BEAKER) (test qpii=3239) 311 mg/dL 70-110 TESTED AT [place] [id number] [facility] [address] POCT-GLUCOSE [id number] 19:56:00* Test Item Value Reference Range Comments POC-GLUCOSE METER (BEAKER) (test iozn=4127) 273 mg/dL 70-110 TESTED AT [place] [id number] [facility] [address] [id number] 14:52:00* Test Item Value Reference Range Comments MAGNESIUM (BEAKER) (test nfvp=391) 1.5 mg/dL 1.6-2.6 [id number] 14:52:00* Test Item Value Reference Range Comments PHOSPHORUS (BEAKER) (test jmja=610) 2.9 mg/dL 2.3-4.7 BASIC METABOLIC [id number] 14:51:00* Test Item Value Reference Range Comments SODIUM (BEAKER) (test kutu=573) 135 meq/L 136-145 POTASSIUM (BEAKER) (test xujv=439) 3.9 meq/L 3.5-5.1 CHLORIDE (BEAKER) (test btqd=382) 106 meq/L 98-107 CO2 (BEAKER) (test tbja=809) 21 meq/L 22-29 BLOOD UREA NITROGEN (BEAKER) (test jvsl=921) 19 mg/dL 7-21 CREATININE (BEAKER) (test wekt=862) 0.89 mg/dL 0.57-1.25 GLUCOSE RANDOM (BEAKER) (test qsei=320) 205 mg/dL 70-105 CALCIUM (BEAKER) (test rkrm=191) 7.9 mg/dL 8.4-10.2 EGFR (BEAKER) (test pazn=1439) 67 mL/min/1.73 sq m ESTIMATED GFR IS NOT ACCURATE CREATININE CLEARANCE IN PREDICTING GLOMERULAR FILTRATION RATE. ESTIMATED GFR IS NOT APPLICABLE FOR DIALYSIS PATIENTS. CREATINE KINASE (CK), TOTAL AND [id number] 14:44:00* Test Item Value Reference Range Comments CREATINE KINASE TOTAL (BEAKER) (test uhas=649) 34 U/L 29-200 CREATINE KINASE-MB (BEAKER) (test gder=984) 1.1 ng/mL 0.0-6.6 CREATINE KINASE-MB INDEX (BEAKER) (test ihcp=719) 3.2 % Effective 07/06/2014: CK-MB Reference Range ChangeNew: 0.0-6.6 Previous: 0.0- 4.9CK-MB Reference Range:<6.7 Normal6.7-10.0 Borderline>10.0 AbnormalTROPONIN [id number] 14:44:00* Test Item Value Reference Range Comments TROPONIN I (BEAKER) (test edoi=918) 0.01 ng/mL 0.00-0.03 Effective 07/06/2014: Reference Range ChangeNew: 0.00-0.03 Previous 0.00- 0.15Troponin I (TnI) levels must be interpreted in the context of the presenting symptoms and the clinical findings. Elevated TnI levels indicate myocardial damage, but are not specific for ischemic heart disease. Elevated TnI levels are seen in patients with other cardiac conditions (including myocarditis and congestive heart failure), and slight TnI elevations occur in patients with other conditions, including sepsis, renal failure, acidosis, acute neurological disease, and persistent tachyarrhythmia.CBC W/PLT COUNT & AUTO [id number] 14:02:00* Test Item Value Reference Range Comments WHITE BLOOD CELL COUNT (BEAKER) (test qwcw=508) 2.9 K/ L 3.5-10.5 RED BLOOD CELL COUNT (BEAKER) (test hjvh=091) 2.44 M/ L 3.93-5.22 HEMOGLOBIN (BEAKER) (test arfi=936) 8.2 GM/DL 11.2-15.7 HEMATOCRIT (BEAKER) (test orrn=655) 26.0 % 34.1-44.9 MEAN CORPUSCULAR VOLUME (BEAKER) (test esxe=468) 106.6 fL 79.4-94.8 MEAN CORPUSCULAR HEMOGLOBIN (BEAKER) (test hbyg=459) 33.6 pg 25.6-32.2 MEAN CORPUSCULAR HEMOGLOBIN CONC (BEAKER) (test qkdb=533) 31.5 GM/DL 32.2- 35.5 RED CELL DISTRIBUTION WIDTH (BEAKER) (test nydo=493) 16.5 % 11.7-14.4 PLATELET COUNT (BEAKER) (test acnk=189) 32 K/CU MM 150-450 MEAN PLATELET VOLUME (BEAKER) (test dneb=705) 11.1 fL 9.4-12.3 NUCLEATED RED BLOOD CELLS (BEAKER) (test sbkq=092) 0 /100 WBC 0-0 NEUTROPHILS RELATIVE PERCENT (BEAKER) (test wsef=332) 80 % LYMPHOCYTES RELATIVE PERCENT (BEAKER) (test kzsh=614) 12 % MONOCYTES RELATIVE PERCENT (BEAKER) (test odpd=812) 5 % EOSINOPHILS RELATIVE PERCENT (BEAKER) (test bria=530) 1 % BASOPHILS RELATIVE PERCENT (BEAKER) (test ghmx=459) 0 % NEUTROPHILS ABSOLUTE COUNT (BEAKER) (test ixva=772) 2.34 K/ L 1.56-6.13 LYMPHOCYTES ABSOLUTE COUNT (BEAKER) (test ybon=505) 0.34 K/ L 1.18-3.74 MONOCYTES ABSOLUTE COUNT (BEAKER) (test ymoa=052) 0.15 K/ L 0.24-0.36 EOSINOPHILS ABSOLUTE COUNT (BEAKER) (test suuo=839) 0.04 K/ L 0.04-0.36 BASOPHILS ABSOLUTE COUNT (BEAKER) (test hqbr=626) 0.01 K/ L 0.01-0.08 IMMATURE GRANULOCYTES-RELATIVE PERCENT (BEAKER) (test xnws=2633) 2 % 0-1 (MANUAL DIFFERENTIAL)2017-03-31 14:02:00* Test Item Value Reference Range Comments TOTAL COUNTED (BEAKER) (test faqm=2745) WBC MORPHOLOGY (BEAKER) (test hopz=016) Normal PLT MORPHOLOGY (BEAKER) (test whmf=339) Normal RBC MORPHOLOGY (BEAKER) (test rhsa=448) Normal CALCIUM, [id number] 13:01:00* Test Item Value Reference Range Comments CALCIUM IONIZED (BEAKER) (test jqys=672) 1.04 mmol/L 1.12-1.27 PH, BLOOD (BEAKER) (test fqgr=8296) 7.51 POCT-GLUCOSE [id number] 10:53:00* Test Item Value Reference Range Comments POC-GLUCOSE METER (BEAKER) (test xjcp=3507) 285 mg/dL 70-110 TESTED AT [place] [id number] [facility] [address] HEPATIC FUNCTION [id number] 10:24:00* Test Item Value Reference Range Comments TOTAL PROTEIN (BEAKER) (test gmsf=984) 5.0 gm/dL 6.0-8.3 ALBUMIN (BEAKER) (test whip=2433) 2.2 g/dL 3.5-5.0 BILIRUBIN TOTAL (BEAKER) (test arpu=308) 2.8 mg/dL 0.2-1.2 BILIRUBIN DIRECT (BEAKER) (test yyfb=827) 1.2 mg/dL 0.1-0.5 ALKALINE PHOSPHATASE (BEAKER) (test rlrf=842) 79 U/L 40-150 AST (SGOT) (BEAKER) (test crvb=399) 23 U/L 5-34 ALT (SGPT) (BEAKER) (test nnir=721) 12 U/L 6-55 Specimen slightly ictericPOCT-GLUCOSE [id number] 08:10:00* Test Item Value Reference Range Comments POC-GLUCOSE METER (BEAKER) (test jwni=8408) 281 mg/dL 70-110 TESTED AT [address] [address] CALCIUM, [id number] 05:51:00* Test Item Value Reference Range Comments CALCIUM IONIZED (BEAKER) (test dtoj=976) 1.07 mmol/L 1.12-1.27 PH, BLOOD (BEAKER) (test rzog=4110) 7.48 BASIC METABOLIC [id number] 05:32:00* Test Item Value Reference Range Comments SODIUM (BEAKER) (test lzfx=390) 136 meq/L 136-145 POTASSIUM (BEAKER) (test kwnx=022) 3.9 meq/L 3.5-5.1 CHLORIDE (BEAKER) (test fbiy=883) 110 meq/L 98-107 CO2 (BEAKER) (test mdgx=461) 21 meq/L 22-29 BLOOD UREA NITROGEN (BEAKER) (test ctar=932) 21 mg/dL 7-21 CREATININE (BEAKER) (test zisj=877) 0.86 mg/dL 0.57-1.25 GLUCOSE RANDOM (BEAKER) (test zisc=851) 289 mg/dL 70-105 CALCIUM (BEAKER) (test okrw=546) 7.6 mg/dL 8.4-10.2 EGFR (BEAKER) (test jzsd=4480) 70 mL/min/1.73 sq m ESTIMATED GFR IS NOT ACCURATE CREATININE CLEARANCE IN PREDICTING GLOMERULAR FILTRATION RATE. ESTIMATED GFR IS NOT APPLICABLE FOR DIALYSIS PATIENTS. Specimen slightly [id number] 05:30:00* Test Item Value Reference Range Comments PHOSPHORUS (BEAKER) (test oiuk=867) 2.4 mg/dL 2.3-4.7 [id number] 05:30:00* Test Item Value Reference Range Comments MAGNESIUM (BEAKER) (test ytca=141) 1.6 mg/dL 1.6-2.6 CBC W/PLT COUNT & AUTO [id number] 05:07:00* Test Item Value Reference Range Comments WHITE BLOOD CELL COUNT (BEAKER) (test khvn=083) 3.5 K/ L 3.5-10.5 RED BLOOD CELL COUNT (BEAKER) (test xrso=512) 2.56 M/ L 3.93-5.22 HEMOGLOBIN (BEAKER) (test cicd=750) 8.5 GM/DL 11.2-15.7 HEMATOCRIT (BEAKER) (test iiom=675) 27.0 % 34.1-44.9 MEAN CORPUSCULAR VOLUME (BEAKER) (test bfcy=760) 105.5 fL 79.4-94.8 MEAN CORPUSCULAR HEMOGLOBIN (BEAKER) (test jlre=023) 33.2 pg 25.6-32.2 MEAN CORPUSCULAR HEMOGLOBIN CONC (BEAKER) (test nohg=373) 31.5 GM/DL 32.2- 35.5 RED CELL DISTRIBUTION WIDTH (BEAKER) (test wsdy=561) 16.6 % 11.7-14.4 PLATELET COUNT (BEAKER) (test arwj=413) 45 K/CU MM 150-450 MEAN PLATELET VOLUME (BEAKER) (test dmax=184) 11.7 fL 9.4-12.3 NUCLEATED RED BLOOD CELLS (BEAKER) (test gzan=000) 0 /100 WBC 0-0 NEUTROPHILS RELATIVE PERCENT (BEAKER) (test aoba=395) 74 % LYMPHOCYTES RELATIVE PERCENT (BEAKER) (test gdtd=582) 16 % MONOCYTES RELATIVE PERCENT (BEAKER) (test etxp=459) 8 % EOSINOPHILS RELATIVE PERCENT (BEAKER) (test qvoc=317) 0 % BASOPHILS RELATIVE PERCENT (BEAKER) (test bmci=021) 1 % NEUTROPHILS ABSOLUTE COUNT (BEAKER) (test cpnv=165) 2.56 K/ L 1.56-6.13 LYMPHOCYTES ABSOLUTE COUNT (BEAKER) (test juih=762) 0.54 K/ L 1.18-3.74 MONOCYTES ABSOLUTE COUNT (BEAKER) (test vyxo=040) 0.26 K/ L 0.24-0.36 EOSINOPHILS ABSOLUTE COUNT (BEAKER) (test jouu=461) 0.00 K/ L 0.04-0.36 BASOPHILS ABSOLUTE COUNT (BEAKER) (test tyxr=903) 0.02 K/ L 0.01-0.08 IMMATURE GRANULOCYTES-RELATIVE PERCENT (BEAKER) (test wwuf=8112) 3 % 0-1 POCT-GLUCOSE [id number] 22:45:00* Test Item Value Reference Range Comments POC-GLUCOSE METER (BEAKER) (test ghkx=5958) 390 mg/dL 70-110 Notified SELVIN JACOBSON/ TESTED AT [facility] [address] [facility] [address] [id number] 15:55:00* Test Item Value Reference Range Comments PROTIME (BEAKER) (test ksdr=686) 20.8 seconds 11.7-14.7 INR (BEAKER) (test jotx=704) 1.8 <=5.9 PARTIAL THROMBOPLASTIN TIME (BEAKER) (test jqup=756) 36.8 seconds 22.5-36.0 RECOMMENDED COUMADIN/WARFARIN INR THERAPY RANGESSTANDARD DOSE: 2.0 - 3.0 Includes: PROPHYLAXIS for venous thrombosis, systemic embolization; TREATMENT for venous thrombosis and/or pulmonary embolus.HIGH RISK: Target INR is 2.5-3.5 for patients with mechanical heart valves.PLATELET [id number] 15:45:00* Test Item Value Reference Range Comments PLATELET COUNT (BEAKER) (test kgde=231) 41 K/CU MM 150-450 POCT-GLUCOSE [id number] 11:45:00* Test Item Value Reference Range Comments POC-GLUCOSE METER (BEAKER) (test uaab=8103) 239 mg/dL 70-110 TESTED AT [facility] [address] [facility] [address] POCT-GLUCOSE [id number] 08:00:00* Test Item Value Reference Range Comments POC-GLUCOSE METER (BEAKER) (test hjuf=0121) 128 mg/dL 70-110 TESTED AT [facility] [address] [facility] [address] CALCIUM, [id number] 06:13:00* Test Item Value Reference Range Comments CALCIUM IONIZED (BEAKER) (test cyvn=872) 1.05 mmol/L 1.12-1.27 PH, BLOOD (BEAKER) (test axxu=1639) 7.50 BASIC METABOLIC [id number] 05:51:00* Test Item Value Reference Range Comments SODIUM (BEAKER) (test nkqh=353) 139 meq/L 136-145 POTASSIUM (BEAKER) (test dofz=930) 3.1 meq/L 3.5-5.1 CHLORIDE (BEAKER) (test yqvv=540) 110 meq/L 98-107 CO2 (BEAKER) (test agrw=656) 22 meq/L 22-29 BLOOD UREA NITROGEN (BEAKER) (test lkcq=131) 22 mg/dL 7-21 CREATININE (BEAKER) (test rhve=148) 0.75 mg/dL 0.57-1.25 GLUCOSE RANDOM (BEAKER) (test cnva=697) 126 mg/dL 70-105 CALCIUM (BEAKER) (test phxw=816) 7.7 mg/dL 8.4-10.2 EGFR (BEAKER) (test zhsu=2955) 82 mL/min/1.73 sq m ESTIMATED GFR IS NOT ACCURATE CREATININE CLEARANCE IN PREDICTING GLOMERULAR FILTRATION RATE. ESTIMATED GFR IS NOT APPLICABLE FOR DIALYSIS PATIENTS. Specimen slightly ictericCBC W/PLT COUNT & AUTO [id number] 05:51:00 * Test Item Value Reference Range Comments WHITE BLOOD CELL COUNT (BEAKER) (test gwbb=635) 3.7 K/ L 3.5-10.5 RED BLOOD CELL COUNT (BEAKER) (test fktr=632) 2.46 M/ L 3.93-5.22 HEMOGLOBIN (BEAKER) (test xgad=148) 8.2 GM/DL 11.2-15.7 HEMATOCRIT (BEAKER) (test zemu=797) 26.2 % 34.1-44.9 MEAN CORPUSCULAR VOLUME (BEAKER) (test zxrs=441) 106.5 fL 79.4-94.8 MEAN CORPUSCULAR HEMOGLOBIN (BEAKER) (test bkqo=718) 33.3 pg 25.6-32.2 MEAN CORPUSCULAR HEMOGLOBIN CONC (BEAKER) (test xtjq=925) 31.3 GM/DL 32.2- 35.5 RED CELL DISTRIBUTION WIDTH (BEAKER) (test kzqt=193) 16.8 % 11.7-14.4 PLATELET COUNT (BEAKER) (test yujf=362) 51 K/CU MM 150-450 MEAN PLATELET VOLUME (BEAKER) (test szie=418) 11.6 fL 9.4-12.3 NUCLEATED RED BLOOD CELLS (BEAKER) (test rrjy=442) 0 /100 WBC 0-0 NEUTROPHILS RELATIVE PERCENT (BEAKER) (test depw=646) 73 % LYMPHOCYTES RELATIVE PERCENT (BEAKER) (test eokm=495) 16 % MONOCYTES RELATIVE PERCENT (BEAKER) (test casv=442) 7 % EOSINOPHILS RELATIVE PERCENT (BEAKER) (test jtvu=532) 2 % BASOPHILS RELATIVE PERCENT (BEAKER) (test zrjg=480) 0 % NEUTROPHILS ABSOLUTE COUNT (BEAKER) (test etym=464) 2.68 K/ L 1.56-6.13 LYMPHOCYTES ABSOLUTE COUNT (BEAKER) (test ojzx=359) 0.59 K/ L 1.18-3.74 MONOCYTES ABSOLUTE COUNT (BEAKER) (test giol=376) 0.24 K/ L 0.24-0.36 EOSINOPHILS ABSOLUTE COUNT (BEAKER) (test unui=766) 0.06 K/ L 0.04-0.36 BASOPHILS ABSOLUTE COUNT (BEAKER) (test tyim=226) 0.01 K/ L 0.01-0.08 IMMATURE GRANULOCYTES-RELATIVE PERCENT (BEAKER) (test bnqw=8690) 3 % 0-1 [id number] 05:47:00* Test Item Value Reference Range Comments PHOSPHORUS (BEAKER) (test vtmu=387) 2.5 mg/dL 2.3-4.7 [id number] 05:47:00* Test Item Value Reference Range Comments MAGNESIUM (BEAKER) (test jtup=600) 1.4 mg/dL 1.6-2.6 B-TYPE NATRIURETIC FACTOR (BNP)2017-03-29 05:46:00* Test Item Value Reference Range Comments B-TYPE NATRIURETIC PEPTIDE (BEAKER) (test scht=875) 293 pg/mL 0-100 POCT-GLUCOSE [id number] 00:55:00* Test Item Value Reference Range Comments POC-GLUCOSE METER (BEAKER) (test slcy=2153) 252 mg/dL 70-110 TESTED AT [address] [address] POCT-GLUCOSE [id number] 21:27:00* Test Item Value Reference Range Comments POC-GLUCOSE METER (BEAKER) (test fgel=8158) 298 mg/dL 70-110 TESTED AT [address] [address] POCT-GLUCOSE [id number] 17:43:00* Test Item Value Reference Range Comments POC-GLUCOSE METER (BEAKER) (test fibv=8716) 299 mg/dL 70-110 TESTED AT [address] [address] POCT-GLUCOSE [id number] 11:37:00* Test Item Value Reference Range Comments POC-GLUCOSE METER (BEAKER) (test vzel=7330) 282 mg/dL 70-110 TESTED AT [address] [address] POCT-GLUCOSE [id number] 08:22:00* Test Item Value Reference Range Comments POC-GLUCOSE METER (BEAKER) (test vndk=2308) 217 mg/dL 70-110 TESTED AT [address] [address] CBC W/PLT COUNT & AUTO [id number] 06:36:00* Test Item Value Reference Range Comments WHITE BLOOD CELL COUNT (BEAKER) (test nqna=927) 3.1 K/ L 3.5-10.5 RED BLOOD CELL COUNT (BEAKER) (test tgur=231) 2.49 M/ L 3.93-5.22 HEMOGLOBIN (BEAKER) (test auus=848) 8.2 GM/DL 11.2-15.7 HEMATOCRIT (BEAKER) (test zsuy=679) 26.9 % 34.1-44.9 MEAN CORPUSCULAR VOLUME (BEAKER) (test kxmo=474) 108.0 fL 79.4-94.8 MEAN CORPUSCULAR HEMOGLOBIN (BEAKER) (test teyi=689) 32.9 pg 25.6-32.2 MEAN CORPUSCULAR HEMOGLOBIN CONC (BEAKER) (test hgkn=415) 30.5 GM/DL 32.2- 35.5 RED CELL DISTRIBUTION WIDTH (BEAKER) (test skyj=454) 16.6 % 11.7-14.4 PLATELET COUNT (BEAKER) (test mipx=470) 42 K/CU MM 150-450 MEAN PLATELET VOLUME (BEAKER) (test fdxs=330) 10.4 fL 9.4-12.3 NUCLEATED RED BLOOD CELLS (BEAKER) (test dbwr=508) 0 /100 WBC 0-0 NEUTROPHILS RELATIVE PERCENT (BEAKER) (test oajn=544) 69 % LYMPHOCYTES RELATIVE PERCENT (BEAKER) (test yomc=325) 18 % MONOCYTES RELATIVE PERCENT (BEAKER) (test sdjw=381) 6 % EOSINOPHILS RELATIVE PERCENT (BEAKER) (test uqbr=019) 2 % BASOPHILS RELATIVE PERCENT (BEAKER) (test uoze=859) 0 % NEUTROPHILS ABSOLUTE COUNT (BEAKER) (test vgnr=184) 2.14 K/ L 1.56-6.13 LYMPHOCYTES ABSOLUTE COUNT (BEAKER) (test ijlm=209) 0.57 K/ L 1.18-3.74 MONOCYTES ABSOLUTE COUNT (BEAKER) (test cevi=100) 0.19 K/ L 0.24-0.36 EOSINOPHILS ABSOLUTE COUNT (BEAKER) (test pgyt=822) 0.07 K/ L 0.04-0.36 BASOPHILS ABSOLUTE COUNT (BEAKER) (test bkjr=161) 0.01 K/ L 0.01-0.08 IMMATURE GRANULOCYTES-RELATIVE PERCENT (BEAKER) (test qset=5980) 5 % 0-1 CALCIUM, [id number] 05:53:00* Test Item Value Reference Range Comments CALCIUM IONIZED (BEAKER) (test gozj=590) 1.08 mmol/L 1.12-1.27 PH, BLOOD (BEAKER) (test ocvc=1986) 7.50 [id number] 05:44:00* Test Item Value Reference Range Comments PREALBUMIN (BEAKER) (test iwlb=771) 4 mg/dL 14-45 Listed for liver transplant - nutrition surviellance (hepatology)[id number] 05:42:00* Test Item Value Reference Range Comments PHOSPHORUS (BEAKER) (test mkmu=172) 2.1 mg/dL 2.3-4.7 [id number] 05:42:00* Test Item Value Reference Range Comments MAGNESIUM (BEAKER) (test laeo=796) 1.5 mg/dL 1.6-2.6 BASIC METABOLIC [id number] 05:42:00* Test Item Value Reference Range Comments SODIUM (BEAKER) (test usqz=497) 136 meq/L 136-145 POTASSIUM (BEAKER) (test kcoa=891) 3.6 meq/L 3.5-5.1 CHLORIDE (BEAKER) (test czap=089) 110 meq/L 98-107 CO2 (BEAKER) (test ghur=933) 21 meq/L 22-29 BLOOD UREA NITROGEN (BEAKER) (test rpqb=996) 23 mg/dL 7-21 CREATININE (BEAKER) (test imbw=146) 0.89 mg/dL 0.57-1.25 GLUCOSE RANDOM (BEAKER) (test qwbr=273) 202 mg/dL 70-105 CALCIUM (BEAKER) (test ezku=970) 7.7 mg/dL 8.4-10.2 EGFR (BEAKER) (test ezur=3310) 67 mL/min/1.73 sq m ESTIMATED GFR IS NOT ACCURATE CREATININE CLEARANCE IN PREDICTING GLOMERULAR FILTRATION RATE. ESTIMATED GFR IS NOT APPLICABLE FOR DIALYSIS PATIENTS. Specimen slightly ictericPOCT-GLUCOSE [id number] 21:00:00* Test Item Value Reference Range Comments POC-GLUCOSE METER (BEAKER) (test fxdm=9349) 212 mg/dL 70-110 TESTED AT [facility] [address] [facility] [address] PROTEIN, RANDOM [id number] 20:24:00* Test Item Value Reference Range Comments PROTEIN, URINE (BEAKER) (test ffqg=2006) < mg/dL 0-14 SODIUM, RANDOM [id number] 20:23:00* Test Item Value Reference Range Comments SODIUM URINE (BEAKER) (test zvcf=476) < meq/L Reference Range: No NormalsURINALYSIS W/ [id number] 20:22:00* Test Item Value Reference Range Comments COLOR (BEAKER) (test jfbm=883) Yellow CLARITY (BEAKER) (test tpam=150) Hazy SPECIFIC GRAVITY UA (BEAKER) (test jwly=302) 1.010 1.001-1.035 PH UA (BEAKER) (test bnpl=765) 6.0 5.0-8.0 PROTEIN UA (BEAKER) (test civs=682) Negative Negative GLUCOSE UA (BEAKER) (test quyx=483) Negative Negative KETONES UA (BEAKER) (test idjz=171) Negative Negative BILIRUBIN UA (BEAKER) (test lrsj=164) Negative Negative BLOOD UA (BEAKER) (test ihhc=780) Trace Negative NITRITE UA (BEAKER) (test jbtr=844) Negative Negative LEUKOCYTE ESTERASE UA (BEAKER) (test dedg=930) Large Negative UROBILINOGEN UA (BEAKER) (test ntlb=859) 2.0 mg/dL 0.2-1.0 RBC UA (BEAKER) (test ukrs=190) 6 /HPF WBC UA (BEAKER) (test fkya=997) 10 /HPF BACTERIA (BEAKER) (test gsuh=193) Occasional SQUAMOUS EPITHELIAL (BEAKER) (test umlc=780) 13 /HPF SOURCE(BEAKER) (test cerc=4183) Urine, Clean Catch CREATININE, RANDOM [id number] 20:19:00* Test Item Value Reference Range Comments CREATININE URINE (BEAKER) (test rbrv=949) 74.8 mg/dL Reference Range: No NormalsPOCT-GLUCOSE [id number] 17:04:00* Test Item Value Reference Range Comments POC-GLUCOSE METER (BEAKER) (test dsta=1720) 73 mg/dL 70-110 TESTED AT [facility] [address] [facility] [address] POCT-GLUCOSE [id number] 15:08:00* Test Item Value Reference Range Comments POC-GLUCOSE METER (BEAKER) (test fuex=6738) 98 mg/dL 70-110 TESTED AT [facility] [address] [facility] [address] CBC W/PLT COUNT & AUTO [id number] 14:53:00* Test Item Value Reference Range Comments WHITE BLOOD CELL COUNT (BEAKER) (test xyhs=558) 3.7 K/ L 3.5-10.5 RED BLOOD CELL COUNT (BEAKER) (test jogj=941) 2.28 M/ L 3.93-5.22 HEMOGLOBIN (BEAKER) (test luof=792) 7.6 GM/DL 11.2-15.7 HEMATOCRIT (BEAKER) (test hcyr=231) 25.1 % 34.1-44.9 MEAN CORPUSCULAR VOLUME (BEAKER) (test bcmx=723) 110.1 fL 79.4-94.8 MEAN CORPUSCULAR HEMOGLOBIN (BEAKER) (test uxpw=614) 33.3 pg 25.6-32.2 MEAN CORPUSCULAR HEMOGLOBIN CONC (BEAKER) (test rfhs=312) 30.3 GM/DL 32.2- 35.5 RED CELL DISTRIBUTION WIDTH (BEAKER) (test ptnp=938) 16.6 % 11.7-14.4 PLATELET COUNT (BEAKER) (test facw=552) 43 K/CU MM 150-450 MEAN PLATELET VOLUME (BEAKER) (test mojo=483) 11.7 fL 9.4-12.3 NUCLEATED RED BLOOD CELLS (BEAKER) (test bump=334) 1 /100 WBC 0-0 NEUTROPHILS RELATIVE PERCENT (BEAKER) (test tnjd=693) 75 % LYMPHOCYTES RELATIVE PERCENT (BEAKER) (test yvna=908) 13 % MONOCYTES RELATIVE PERCENT (BEAKER) (test biig=135) 6 % EOSINOPHILS RELATIVE PERCENT (BEAKER) (test rjyb=990) 1 % BASOPHILS RELATIVE PERCENT (BEAKER) (test agac=818) 0 % NEUTROPHILS ABSOLUTE COUNT (BEAKER) (test esnr=390) 2.75 K/ L 1.56-6.13 LYMPHOCYTES ABSOLUTE COUNT (BEAKER) (test dupk=839) 0.47 K/ L 1.18-3.74 MONOCYTES ABSOLUTE COUNT (BEAKER) (test dnzq=452) 0.20 K/ L 0.24-0.36 EOSINOPHILS ABSOLUTE COUNT (BEAKER) (test nrjp=669) 0.05 K/ L 0.04-0.36 BASOPHILS ABSOLUTE COUNT (BEAKER) (test xwry=900) 0.01 K/ L 0.01-0.08 IMMATURE GRANULOCYTES-RELATIVE PERCENT (BEAKER) (test vdvt=7413) 5 % 0-1 (MANUAL DIFFERENTIAL)2017-03-27 14:53:00* Test Item Value Reference Range Comments TOTAL COUNTED (BEAKER) (test baze=8979) WBC MORPHOLOGY (BEAKER) (test zadq=989) Normal PLT MORPHOLOGY (BEAKER) (test lcvx=588) Normal ANISOCYTOSIS (BEAKER) (test ykfd=666) 2+ moderate OVALOCYTES (BEAKER) (test clta=038) 2+ moderate HEMOGLOBIN [id number] 12:49:00* Test Item Value Reference Range Comments HEMOGLOBIN A1C (BEAKER) (test aetz=400) 5.6 % 4.3-6.1 POCT-GLUCOSE [id number] 08:28:00* Test Item Value Reference Range Comments POC-GLUCOSE METER (BEAKER) (test gner=5222) 211 mg/dL 70-110 TESTED AT [address] [address] POCT-GLUCOSE [id number] 05:03:00* Test Item Value Reference Range Comments POC-GLUCOSE METER (BEAKER) (test kbzq=1223) 269 mg/dL 70-110 TESTED AT [place] [id number] [facility] [address] COMPREHENSIVE METABOLIC [id number] 00:45:00* Test Item Value Reference Range Comments TOTAL PROTEIN (BEAKER) (test fyer=562) 5.1 gm/dL 6.0-8.3 ALBUMIN (BEAKER) (test xnow=6607) 2.1 g/dL 3.5-5.0 ALKALINE PHOSPHATASE (BEAKER) (test vmgm=915) 89 U/L 40-150 BILIRUBIN TOTAL (BEAKER) (test ijnd=080) 2.8 mg/dL 0.2-1.2 SODIUM (BEAKER) (test xpic=526) 137 meq/L 136-145 POTASSIUM (BEAKER) (test igvs=910) 4.2 meq/L 3.5-5.1 CHLORIDE (BEAKER) (test bmpy=582) 110 meq/L 98-107 CO2 (BEAKER) (test knus=406) 19 meq/L 22-29 BLOOD UREA NITROGEN (BEAKER) (test wvzn=003) 25 mg/dL 7-21 CREATININE (BEAKER) (test paib=486) 1.04 mg/dL 0.57-1.25 GLUCOSE RANDOM (BEAKER) (test mfwb=230) 263 mg/dL 70-105 CALCIUM (BEAKER) (test czzx=750) 7.5 mg/dL 8.4-10.2 AST (SGOT) (BEAKER) (test gpqx=637) 24 U/L 5-34 ALT (SGPT) (BEAKER) (test rsvh=503) 11 U/L 6-55 EGFR (BEAKER) (test ycrw=0074) 56 mL/min/1.73 sq m ESTIMATED GFR IS NOT ACCURATE CREATININE CLEARANCE IN PREDICTING GLOMERULAR FILTRATION RATE. ESTIMATED GFR IS NOT APPLICABLE FOR DIALYSIS PATIENTS. Specimen slightly [id number] 00:43:00* Test Item Value Reference Range Comments MAGNESIUM (BEAKER) (test mowk=150) 1.5 mg/dL 1.6-2.6 [id number] 00:43:00* Test Item Value Reference Range Comments PROTIME (BEAKER) (test nomo=913) 21.4 seconds 11.7-14.7 INR (BEAKER) (test riir=311) 1.9 <=5.9 PARTIAL THROMBOPLASTIN TIME (BEAKER) (test cptd=139) 37.7 seconds 22.5-36.0 RECOMMENDED COUMADIN/WARFARIN INR THERAPY RANGESSTANDARD DOSE: 2.0 - 3.0 Includes: PROPHYLAXIS for venous thrombosis, systemic embolization; TREATMENT for venous thrombosis and/or pulmonary embolus.HIGH RISK: Target INR is 2.5-3.5 for patients with mechanical heart valves.PROTHROMBIN [id number] 00:42: 00* Test Item Value Reference Range Comments PROTIME (BEAKER) (test cufp=637) 21.4 seconds 11.7-14.7 INR (BEAKER) (test atlb=088) 1.9 <=5.9 RECOMMENDED COUMADIN/WARFARIN INR THERAPY RANGESSTANDARD DOSE: 2.0 - 3.0 Includes: PROPHYLAXIS for venous thrombosis, systemic embolization; TREATMENT for venous thrombosis and/or pulmonary embolus.HIGH RISK: Target INR is 2.5-3.5 for patients with mechanical heart valves.POCT-GLUCOSE [id number] 23:28:00 * Test Item Value Reference Range Comments POC-GLUCOSE METER (BEAKER) (test vued=7385) 293 mg/dL 70-110 TESTED AT [facility] [address] [facility] [address] BODY FLUID CULTURE + GRAM [id number] 13:19:00* Test Item Value Reference Range Comments CULTURE (BEAKER) (test jzpk=3797) No growth GRAM STAIN RESULT (BEAKER) (test efig=2412) 1+ WBCs GRAM STAIN RESULT (BEAKER) (test qdli=38686) No organisms seen BODY FLUID CELL COUNT WITH [id number] 20:40:00* Test Item Value Reference Range Comments APPEARANCE FLUID (BEAKER) (test gbpv=742) Hazy Clear COLOR FLUID (BEAKER) (test zhml=997) Yellow Colorless, Straw RBC FLUID (BEAKER) (test fvkz=544) 1000 /cu mm <=1 ADJUSTED WBC FLUID (BEAKER) (test vdms=3987) 355 /cu mm <=5 LINING CELLS (BEAKER) (test jlld=8587) 0 /cu mm <=1 NEUTROPHILS FLUID (BEAKER) (test dxfi=3498) 34 % LYMPHS FLUID (BEAKER) (test bmoa=918) 6 % MONO/MACROPHAGE FLUID (BEAKER) (test fgmb=254) 66 % EOSINOPHILS FLUID (BEAKER) (test bsdy=589) 0 % BASO FLUID (BEAKER) (test pvkt=771) 0 % CONTAINER BODY FLUID (BEAKER) (test ayzl=0387) EDTA Tube BODY FLUID CELL COUNT WITH [id number] 17:55:00* Test Item Value Reference Range Comments APPEARANCE FLUID (BEAKER) (test izcr=409) Hazy Clear COLOR FLUID (BEAKER) (test hodu=240) Yellow Colorless, Straw RBC FLUID (BEAKER) (test tell=643) 2069 /cu mm <=1 ADJUSTED WBC FLUID (BEAKER) (test arsx=7416) 191 /cu mm <=5 LINING CELLS (BEAKER) (test kchg=7727) 0 /cu mm <=1 NEUTROPHILS FLUID (BEAKER) (test raxe=1219) 16 % LYMPHS FLUID (BEAKER) (test rmev=418) 21 % MONO/MACROPHAGE FLUID (BEAKER) (test asjo=869) 62 % EOSINOPHILS FLUID (BEAKER) (test mbcb=203) 0 % BASO FLUID (BEAKER) (test hoad=027) 1 % CONTAINER BODY FLUID (BEAKER) (test zgsp=9196) EDTA Tube POCT-GLUCOSE [id number] 17:43:00* Test Item Value Reference Range Comments POC-GLUCOSE METER (BEAKER) (test hzhu=5389) 213 mg/dL 70-110 TESTED AT [address] [address] POCT-GLUCOSE [id number] 12:44:00* Test Item Value Reference Range Comments POC-GLUCOSE METER (BEAKER) (test jmyn=3551) 313 mg/dL 70-110 TESTED AT [address] [address] POCT-GLUCOSE [id number] 08:16:00* Test Item Value Reference Range Comments POC-GLUCOSE METER (BEAKER) (test ixbg=7194) 240 mg/dL 70-110 TESTED AT [address] [address] POCT-GLUCOSE [id number] 21:37:00* Test Item Value Reference Range Comments POC-GLUCOSE METER (BEAKER) (test vjfg=6493) 373 mg/dL 70-110 Notified SELVIN JACOBSON/ TESTED AT [address] [address] POCT-GLUCOSE [id number] 18:32:00* Test Item Value Reference Range Comments POC-GLUCOSE METER (BEAKER) (test sack=2709) 252 mg/dL 70-110 TESTED AT [address] [address] CBC W/PLT COUNT & AUTO [id number] 13:49:00* Test Item Value Reference Range Comments WHITE BLOOD CELL COUNT (BEAKER) (test edwq=984) 2.0 K/ L 4.0-10.0 RED BLOOD CELL COUNT (BEAKER) (test dygp=440) 2.22 M/ L 4.00-5.00 HEMOGLOBIN (BEAKER) (test ddeb=194) 8.2 GM/DL 12.0-15.0 HEMATOCRIT (BEAKER) (test ohly=367) 25.3 % 36.0-45.0 MEAN CORPUSCULAR VOLUME (BEAKER) (test cfpy=045) 114.0 fL 82.0-99.0 MEAN CORPUSCULAR HEMOGLOBIN (BEAKER) (test pdbp=700) 36.9 pg 27.0-33.0 MEAN CORPUSCULAR HEMOGLOBIN CONC (BEAKER) (test axaf=462) 32.4 GM/DL 32.0- 36.0 RED CELL DISTRIBUTION WIDTH (BEAKER) (test fuyt=661) 15.7 % 10.3-14.2 PLATELET COUNT (BEAKER) (test plzw=949) 30 K/CU MM 150-430 MEAN PLATELET VOLUME (BEAKER) (test vkrr=556) 9.3 fL 6.5-10.5 NUCLEATED RED BLOOD CELLS (BEAKER) (test qqgk=150) 0 /100 WBC 0-0 NEUTROPHILS RELATIVE PERCENT (BEAKER) (test ohuo=086) 70 % LYMPHOCYTES RELATIVE PERCENT (BEAKER) (test wekl=947) 21 % MONOCYTES RELATIVE PERCENT (BEAKER) (test uuaf=033) 8 % EOSINOPHILS RELATIVE PERCENT (BEAKER) (test kbef=445) 1 % BASOPHILS RELATIVE PERCENT (BEAKER) (test qgkh=793) 0 % NEUTROPHILS ABSOLUTE COUNT (BEAKER) (test uera=414) 1.39 K/ L 1.80-8.00 LYMPHOCYTES ABSOLUTE COUNT (BEAKER) (test wbjz=031) 0.41 K/ L 1.48-4.50 MONOCYTES ABSOLUTE COUNT (BEAKER) (test wdaa=453) 0.16 K/ L 0.00-1.30 EOSINOPHILS ABSOLUTE COUNT (BEAKER) (test uawz=498) 0.02 K/ L 0.00-0.50 BASOPHILS ABSOLUTE COUNT (BEAKER) (test lyam=369) 0.01 K/ L 0.00-0.20 0.00(MANUAL DIFFERENTIAL)2017-02-21 13:49:00* Test Item Value Reference Range Comments TOTAL COUNTED (BEAKER) (test ltsc=0033) WBC MORPHOLOGY (BEAKER) (test wmgf=264) Normal PLT MORPHOLOGY (BEAKER) (test eses=110) Normal RBC MORPHOLOGY (BEAKER) (test eitj=115) Normal POCT-GLUCOSE [id number] 11:13:00* Test Item Value Reference Range Comments POC-GLUCOSE METER (BEAKER) (test fsly=7034) 363 mg/dL 70-110 TESTED AT [address] [address] POCT-GLUCOSE [id number] 07:12:00* Test Item Value Reference Range Comments POC-GLUCOSE METER (BEAKER) (test qeqh=2843) 409 mg/dL 70-110 TESTED AT [address] [place] [address] COMPREHENSIVE METABOLIC [id number] 07:00:00* Test Item Value Reference Range Comments TOTAL PROTEIN (BEAKER) (test mzue=872) 5.1 gm/dL 6.0-8.3 ALBUMIN (BEAKER) (test pzli=1829) 2.4 g/dL 3.5-5.0 ALKALINE PHOSPHATASE (BEAKER) (test djsa=750) 78 U/L 40-150 BILIRUBIN TOTAL (BEAKER) (test bwwv=699) 2.6 mg/dL 0.2-1.2 SODIUM (BEAKER) (test tfmq=752) 131 meq/L 136-145 POTASSIUM (BEAKER) (test yrfl=372) 4.2 meq/L 3.5-5.1 CHLORIDE (BEAKER) (test stfr=980) 106 meq/L 98-107 CO2 (BEAKER) (test zerp=397) 17 meq/L 22-29 BLOOD UREA NITROGEN (BEAKER) (test qbqe=615) 29 mg/dL 7-21 CREATININE (BEAKER) (test dbfo=129) 1.19 mg/dL 0.57-1.25 GLUCOSE RANDOM (BEAKER) (test wokp=285) 470 mg/dL 70-105 CALCIUM (BEAKER) (test dwvg=646) 7.7 mg/dL 8.4-10.2 AST (SGOT) (BEAKER) (test vhlo=800) 22 U/L 5-34 ALT (SGPT) (BEAKER) (test skux=699) 14 U/L 6-55 EGFR (BEAKER) (test ygvx=7795) 48 mL/min/1.73 sq m ESTIMATED GFR IS NOT ACCURATE CREATININE CLEARANCE IN PREDICTING GLOMERULAR FILTRATION RATE. ESTIMATED GFR IS NOT APPLICABLE FOR DIALYSIS PATIENTS. Specimen slightly ictericPROTHROMBIN [id number] 06:51:00* Test Item Value Reference Range Comments PROTIME (BEAKER) (test otls=507) 23.2 seconds 11.7-14.7 INR (BEAKER) (test hjke=381) 2.1 <=5.9 RECOMMENDED COUMADIN/WARFARIN INR THERAPY RANGESSTANDARD DOSE: 2.0 - 3.0 Includes: PROPHYLAXIS for venous thrombosis, systemic embolization; TREATMENT for venous thrombosis and/or pulmonary embolus.HIGH RISK: Target INR is 2.5-3.5 for patients with mechanical heart valves.POCT-GLUCOSE [id number] 20:55:00 * Test Item Value Reference Range Comments POC-GLUCOSE METER (BEAKER) (test tnzr=2935) 251 mg/dL 70-110 TESTED AT [address] [address] POCT-GLUCOSE [id number] 18:52:00* Test Item Value Reference Range Comments POC-GLUCOSE METER (BEAKER) (test tlmu=6230) 113 mg/dL 70-110 TESTED AT [address] [address] POCT-GLUCOSE [id number] 17:51:00* Test Item Value Reference Range Comments POC-GLUCOSE METER (BEAKER) (test kuoc=9433) 65 mg/dL 70-110 TESTED AT [address] [address] CBC W/PLT COUNT & AUTO [id number] 12:47:00* Test Item Value Reference Range Comments WHITE BLOOD CELL COUNT (BEAKER) (test fidy=600) 2.2 K/ L 4.0-10.0 RED BLOOD CELL COUNT (BEAKER) (test htvy=939) 2.08 M/ L 4.00-5.00 HEMOGLOBIN (BEAKER) (test rhcy=698) 7.9 GM/DL 12.0-15.0 HEMATOCRIT (BEAKER) (test xeor=254) 23.6 % 36.0-45.0 MEAN CORPUSCULAR VOLUME (BEAKER) (test rbkk=628) 114.0 fL 82.0-99.0 MEAN CORPUSCULAR HEMOGLOBIN (BEAKER) (test ruzh=946) 38.1 pg 27.0-33.0 MEAN CORPUSCULAR HEMOGLOBIN CONC (BEAKER) (test yxcz=648) 33.5 GM/DL 32.0- 36.0 RED CELL DISTRIBUTION WIDTH (BEAKER) (test ftxy=056) 15.6 % 10.3-14.2 PLATELET COUNT (BEAKER) (test dqyf=905) 27 K/CU MM 150-430 MEAN PLATELET VOLUME (BEAKER) (test wlic=796) 9.0 fL 6.5-10.5 NUCLEATED RED BLOOD CELLS (BEAKER) (test xlyy=737) 0 /100 WBC 0-0 NEUTROPHILS RELATIVE PERCENT (BEAKER) (test loxv=796) 75 % LYMPHOCYTES RELATIVE PERCENT (BEAKER) (test ejoj=421) 17 % MONOCYTES RELATIVE PERCENT (BEAKER) (test ewdy=955) 7 % EOSINOPHILS RELATIVE PERCENT (BEAKER) (test omse=180) 1 % BASOPHILS RELATIVE PERCENT (BEAKER) (test kulr=026) 0 % NEUTROPHILS ABSOLUTE COUNT (BEAKER) (test wowv=716) 1.62 K/ L 1.80-8.00 LYMPHOCYTES ABSOLUTE COUNT (BEAKER) (test ntbe=788) 0.37 K/ L 1.48-4.50 MONOCYTES ABSOLUTE COUNT (BEAKER) (test obvs=383) 0.16 K/ L 0.00-1.30 EOSINOPHILS ABSOLUTE COUNT (BEAKER) (test yecn=635) 0.01 K/ L 0.00-0.50 BASOPHILS ABSOLUTE COUNT (BEAKER) (test ufbu=056) 0.01 K/ L 0.00-0.20 0.00(MANUAL DIFFERENTIAL)2017-02-20 12:47:00* Test Item Value Reference Range Comments TOTAL COUNTED (BEAKER) (test brjg=1978) WBC MORPHOLOGY (BEAKER) (test ohwv=580) Normal PLT MORPHOLOGY (BEAKER) (test zdmn=624) Normal OVALOCYTES (BEAKER) (test jttm=859) 1+ few POCT-GLUCOSE [id number] 12:39:00* Test Item Value Reference Range Comments POC-GLUCOSE METER (BEAKER) (test ckwh=7724) 235 mg/dL 70-110 TESTED AT [facility] [address] [facility] [address] PROTHROMBIN [id number] 10:52:00* Test Item Value Reference Range Comments PROTIME (BEAKER) (test itfq=509) 23.7 seconds 11.7-14.7 INR (BEAKER) (test jkkz=678) 2.1 <=5.9 RECOMMENDED COUMADIN/WARFARIN INR THERAPY RANGESSTANDARD DOSE: 2.0 - 3.0 Includes: PROPHYLAXIS for venous thrombosis, systemic embolization; TREATMENT for venous thrombosis and/or pulmonary embolus.HIGH RISK: Target INR is 2.5-3.5 for patients with mechanical heart valves.POCT-GLUCOSE [id number] 07:43:00 * Test Item Value Reference Range Comments POC-GLUCOSE METER (BEAKER) (test lfoy=6105) 262 mg/dL 70-110 TESTED AT [facility] [address] [facility] [address] COMPREHENSIVE METABOLIC [id number] 07:14:00* Test Item Value Reference Range Comments TOTAL PROTEIN (BEAKER) (test ubxy=943) 5.1 gm/dL 6.0-8.3 ALBUMIN (BEAKER) (test yers=5587) 2.3 g/dL 3.5-5.0 ALKALINE PHOSPHATASE (BEAKER) (test vwth=448) 70 U/L 40-150 BILIRUBIN TOTAL (BEAKER) (test mhla=214) 3.0 mg/dL 0.2-1.2 SODIUM (BEAKER) (test wnkn=305) 130 meq/L 136-145 POTASSIUM (BEAKER) (test hmhz=981) 4.7 meq/L 3.5-5.1 CHLORIDE (BEAKER) (test ayas=526) 108 meq/L 98-107 CO2 (BEAKER) (test cswo=097) 17 meq/L 22-29 BLOOD UREA NITROGEN (BEAKER) (test lonm=111) 25 mg/dL 7-21 CREATININE (BEAKER) (test fejy=677) 0.99 mg/dL 0.57-1.25 GLUCOSE RANDOM (BEAKER) (test dvec=522) 270 mg/dL 70-105 CALCIUM (BEAKER) (test tgys=658) 7.9 mg/dL 8.4-10.2 AST (SGOT) (BEAKER) (test jgvp=715) 24 U/L 5-34 ALT (SGPT) (BEAKER) (test dmnh=456) 14 U/L 6-55 EGFR (BEAKER) (test yjda=7076) 59 mL/min/1.73 sq m ESTIMATED GFR IS NOT ACCURATE CREATININE CLEARANCE IN PREDICTING GLOMERULAR FILTRATION RATE. ESTIMATED GFR IS NOT APPLICABLE FOR DIALYSIS PATIENTS. Specimen slightly ictericPROTHROMBIN TIME/[id number] 07:11:00* Test Item Value Reference Range Comments PROTIME (BEAKER) (test tcws=934) > seconds 11.7-14.7 INR (BEAKER) (test tshf=691) > <=5.9 RECOMMENDED COUMADIN/WARFARIN INR THERAPY RANGESSTANDARD DOSE: 2.0 - 3.0 Includes: PROPHYLAXIS for venous thrombosis, systemic embolization; TREATMENT for venous thrombosis and/or pulmonary embolus.HIGH RISK: Target INR is 2.5-3.5 for patients with mechanical heart valves.BLOOD [id number] 00:00:00* Test Item Value Reference Range Comments CULTURE (BEAKER) (test abwq=6373) No growth in 5 days BLOOD [id number] 00:00:00* Test Item Value Reference Range Comments CULTURE (BEAKER) (test fimt=4232) No growth in 5 days POCT-GLUCOSE [id number] 21:03:00* Test Item Value Reference Range Comments POC-GLUCOSE METER (BEAKER) (test skdb=5982) 236 mg/dL 70-110 TESTED AT [address] [address] POCT-GLUCOSE [id number] 18:56:00* Test Item Value Reference Range Comments POC-GLUCOSE METER (BEAKER) (test wxvw=4229) 117 mg/dL 70-110 TESTED AT [address] [address] POCT-GLUCOSE [id number] 17:47:00* Test Item Value Reference Range Comments POC-GLUCOSE METER (BEAKER) (test qqxu=7345) 37 mg/dL 70-110 Notified SELVIN JACOBSON/ TESTED AT [address] [address] POCT-GLUCOSE [id number] 11:40:00* Test Item Value Reference Range Comments POC-GLUCOSE METER (BEAKER) (test kxjr=5849) 211 mg/dL 70-110 TESTED AT [address] [address] CBC W/PLT COUNT & AUTO [id number] 10:35:00* Test Item Value Reference Range Comments WHITE BLOOD CELL COUNT (BEAKER) (test imvm=124) 2.4 K/ L 4.0-10.0 RED BLOOD CELL COUNT (BEAKER) (test itmr=653) 2.15 M/ L 4.00-5.00 HEMOGLOBIN (BEAKER) (test olbb=165) 7.9 GM/DL 12.0-15.0 HEMATOCRIT (BEAKER) (test pdop=235) 24.3 % 36.0-45.0 MEAN CORPUSCULAR VOLUME (BEAKER) (test talh=041) 113.0 fL 82.0-99.0 MEAN CORPUSCULAR HEMOGLOBIN (BEAKER) (test hsxk=434) 36.5 pg 27.0-33.0 MEAN CORPUSCULAR HEMOGLOBIN CONC (BEAKER) (test tciw=286) 32.3 GM/DL 32.0- 36.0 RED CELL DISTRIBUTION WIDTH (BEAKER) (test vmmj=016) 15.6 % 10.3-14.2 PLATELET COUNT (BEAKER) (test zeqp=220) 27 K/CU MM 150-430 MEAN PLATELET VOLUME (BEAKER) (test zopx=609) 9.0 fL 6.5-10.5 NUCLEATED RED BLOOD CELLS (BEAKER) (test dvqy=742) 0 /100 WBC 0-0 NEUTROPHILS RELATIVE PERCENT (BEAKER) (test ssvi=442) 73 % LYMPHOCYTES RELATIVE PERCENT (BEAKER) (test dzvn=211) 20 % MONOCYTES RELATIVE PERCENT (BEAKER) (test dgfm=893) 6 % EOSINOPHILS RELATIVE PERCENT (BEAKER) (test yofa=490) 1 % BASOPHILS RELATIVE PERCENT (BEAKER) (test rzcp=972) 1 % NEUTROPHILS ABSOLUTE COUNT (BEAKER) (test zfcp=009) 1.72 K/ L 1.80-8.00 LYMPHOCYTES ABSOLUTE COUNT (BEAKER) (test rmqy=260) 0.46 K/ L 1.48-4.50 MONOCYTES ABSOLUTE COUNT (BEAKER) (test txwx=468) 0.15 K/ L 0.00-1.30 EOSINOPHILS ABSOLUTE COUNT (BEAKER) (test ylba=917) 0.01 K/ L 0.00-0.50 BASOPHILS ABSOLUTE COUNT (BEAKER) (test zrcy=620) 0.01 K/ L 0.00-0.20 0.00(MANUAL DIFFERENTIAL)2017-02-19 10:35:00* Test Item Value Reference Range Comments TOTAL COUNTED (BEAKER) (test ttba=6004) WBC MORPHOLOGY (BEAKER) (test tvrr=716) Normal PLT MORPHOLOGY (BEAKER) (test mpsp=468) Normal OVALOCYTES (BEAKER) (test qghh=934) 1+ few POLYCHROMATOPHILLIC RBCS(BEAKER) (test ryow=542) 1+ few TEAR DROP CELLS (BEAKER) (test lmmy=568) 1+ few POCT-GLUCOSE [id number] 07:50:00* Test Item Value Reference Range Comments POC-GLUCOSE METER (BEAKER) (test quno=1682) 339 mg/dL 70-110 Notified SELVIN JACOBSON/ TESTED AT [facility] [address] [facility] [address] COMPREHENSIVE METABOLIC [id number] 06:50:00* Test Item Value Reference Range Comments TOTAL PROTEIN (BEAKER) (test xjxb=024) 5.1 gm/dL 6.0-8.3 ALBUMIN (BEAKER) (test ymbz=3789) 2.4 g/dL 3.5-5.0 ALKALINE PHOSPHATASE (BEAKER) (test mxdr=685) 73 U/L 40-150 BILIRUBIN TOTAL (BEAKER) (test cufw=261) 3.0 mg/dL 0.2-1.2 SODIUM (BEAKER) (test kgxt=419) 130 meq/L 136-145 POTASSIUM (BEAKER) (test wdjc=740) 5.0 meq/L 3.5-5.1 CHLORIDE (BEAKER) (test zidv=350) 107 meq/L 98-107 CO2 (BEAKER) (test zppv=425) 18 meq/L 22-29 BLOOD UREA NITROGEN (BEAKER) (test mebb=854) 24 mg/dL 7-21 CREATININE (BEAKER) (test ezva=282) 0.94 mg/dL 0.57-1.25 GLUCOSE RANDOM (BEAKER) (test emwf=107) 339 mg/dL 70-105 CALCIUM (BEAKER) (test wrrg=401) 7.8 mg/dL 8.4-10.2 AST (SGOT) (BEAKER) (test ezvp=329) 23 U/L 5-34 ALT (SGPT) (BEAKER) (test gnih=554) 14 U/L 6-55 EGFR (BEAKER) (test qqfx=8655) 63 mL/min/1.73 sq m ESTIMATED GFR IS NOT ACCURATE CREATININE CLEARANCE IN PREDICTING GLOMERULAR FILTRATION RATE. ESTIMATED GFR IS NOT APPLICABLE FOR DIALYSIS PATIENTS. Specimen slightly ictericPROTHROMBIN TIME/[id number] 06:34:00* Test Item Value Reference Range Comments PROTIME (BEAKER) (test crtj=344) 23.7 seconds 11.7-14.7 INR (BEAKER) (test nhun=087) 2.1 <=5.9 RECOMMENDED COUMADIN/WARFARIN INR THERAPY RANGESSTANDARD DOSE: 2.0 - 3.0 Includes: PROPHYLAXIS for venous thrombosis, systemic embolization; TREATMENT for venous thrombosis and/or pulmonary embolus.HIGH RISK: Target INR is 2.5-3.5 for patients with mechanical heart valves.POCT-GLUCOSE [id number] 21:14:00 * Test Item Value Reference Range Comments POC-GLUCOSE METER (BEAKER) (test afik=8639) 265 mg/dL 70-110 TESTED AT [address] [address] POCT-GLUCOSE [id number] 17:35:00* Test Item Value Reference Range Comments POC-GLUCOSE METER (BEAKER) (test kypj=5922) 81 mg/dL 70-110 TESTED AT [address] [address] POCT-GLUCOSE [id number] 16:54:00* Test Item Value Reference Range Comments POC-GLUCOSE METER (BEAKER) (test wfel=1274) 66 mg/dL 70-110 TESTED AT [address] [address] POCT-GLUCOSE [id number] 16:30:00* Test Item Value Reference Range Comments POC-GLUCOSE METER (BEAKER) (test caum=0075) 60 mg/dL 70-110 Notified SELVIN JACOBSON/ TESTED AT [address] [address] POCT-GLUCOSE [id number] 11:35:00* Test Item Value Reference Range Comments POC-GLUCOSE METER (BEAKER) (test mric=7904) 145 mg/dL 70-110 TESTED AT [address] [address] CBC W/PLT COUNT & AUTO [id number] 10:07:00* Test Item Value Reference Range Comments WHITE BLOOD CELL COUNT (BEAKER) (test ykaa=616) 2.1 K/ L 4.0-10.0 RED BLOOD CELL COUNT (BEAKER) (test bjvs=987) 2.17 M/ L 4.00-5.00 HEMOGLOBIN (BEAKER) (test vzqs=738) 8.5 GM/DL 12.0-15.0 HEMATOCRIT (BEAKER) (test xgzw=981) 24.3 % 36.0-45.0 MEAN CORPUSCULAR VOLUME (BEAKER) (test lmal=812) 112.0 fL 82.0-99.0 MEAN CORPUSCULAR HEMOGLOBIN (BEAKER) (test elng=837) 39.0 pg 27.0-33.0 MEAN CORPUSCULAR HEMOGLOBIN CONC (BEAKER) (test ozgp=294) 34.9 GM/DL 32.0- 36.0 RED CELL DISTRIBUTION WIDTH (BEAKER) (test nfac=885) 16.8 % 10.3-14.2 PLATELET COUNT (BEAKER) (test piqj=223) 29 K/CU MM 150-430 MEAN PLATELET VOLUME (BEAKER) (test lwbn=244) 8.6 fL 6.5-10.5 NUCLEATED RED BLOOD CELLS (BEAKER) (test yhnm=934) 0 /100 WBC 0-0 NEUTROPHILS RELATIVE PERCENT (BEAKER) (test dmge=790) 71 % LYMPHOCYTES RELATIVE PERCENT (BEAKER) (test upau=430) 21 % MONOCYTES RELATIVE PERCENT (BEAKER) (test rrap=329) 7 % EOSINOPHILS RELATIVE PERCENT (BEAKER) (test usqm=599) 0 % BASOPHILS RELATIVE PERCENT (BEAKER) (test qscg=657) 1 % NEUTROPHILS ABSOLUTE COUNT (BEAKER) (test abgh=564) 1.48 K/ L 1.80-8.00 LYMPHOCYTES ABSOLUTE COUNT (BEAKER) (test htsg=167) 0.43 K/ L 1.48-4.50 MONOCYTES ABSOLUTE COUNT (BEAKER) (test ccjw=776) 0.15 K/ L 0.00-1.30 EOSINOPHILS ABSOLUTE COUNT (BEAKER) (test hgtg=366) 0.01 K/ L 0.00-0.50 BASOPHILS ABSOLUTE COUNT (BEAKER) (test covw=462) 0.01 K/ L 0.00-0.20 0.00(MANUAL DIFFERENTIAL)2017-02-18 10:07:00* Test Item Value Reference Range Comments TOTAL COUNTED (BEAKER) (test ebvj=9008) WBC MORPHOLOGY (BEAKER) (test vjvg=353) Normal PLT MORPHOLOGY (BEAKER) (test rapj=214) Normal OVALOCYTES (BEAKER) (test upzt=120) 2+ moderate POLYCHROMATOPHILLIC RBCS(BEAKER) (test pgai=183) 1+ few TEAR DROP CELLS (BEAKER) (test uooe=455) 1+ few POCT-GLUCOSE [id number] 07:58:00* Test Item Value Reference Range Comments POC-GLUCOSE METER (BEAKER) (test tzlt=8566) 379 mg/dL 70-110 Notified SELVIN JACOBSON/ TESTED AT [facility] [address] [facility] [address] COMPREHENSIVE METABOLIC [id number] 05:32:00* Test Item Value Reference Range Comments TOTAL PROTEIN (BEAKER) (test jnmy=579) 5.0 gm/dL 6.0-8.3 ALBUMIN (BEAKER) (test hoyz=8949) 2.4 g/dL 3.5-5.0 ALKALINE PHOSPHATASE (BEAKER) (test qvyx=224) 78 U/L 40-150 BILIRUBIN TOTAL (BEAKER) (test zogu=371) 2.5 mg/dL 0.2-1.2 SODIUM (BEAKER) (test bivj=538) 134 meq/L 136-145 POTASSIUM (BEAKER) (test fhkm=419) 4.9 meq/L 3.5-5.1 CHLORIDE (BEAKER) (test dkiz=247) 109 meq/L 98-107 CO2 (BEAKER) (test imfw=101) 19 meq/L 22-29 BLOOD UREA NITROGEN (BEAKER) (test kkvf=193) 23 mg/dL 7-21 CREATININE (BEAKER) (test wxzc=643) 0.96 mg/dL 0.57-1.25 GLUCOSE RANDOM (BEAKER) (test uaam=202) 309 mg/dL 70-105 CALCIUM (BEAKER) (test bqrl=465) 7.8 mg/dL 8.4-10.2 AST (SGOT) (BEAKER) (test loig=986) 24 U/L 5-34 ALT (SGPT) (BEAKER) (test sgyz=079) 14 U/L 6-55 EGFR (BEAKER) (test ghof=8674) 62 mL/min/1.73 sq m ESTIMATED GFR IS NOT ACCURATE CREATININE CLEARANCE IN PREDICTING GLOMERULAR FILTRATION RATE. ESTIMATED GFR IS NOT APPLICABLE FOR DIALYSIS PATIENTS. [id number] 05:30:00* Test Item Value Reference Range Comments AMMONIA (BEAKER) (test vgro=577) 97 mol/L 18-72 PROTHROMBIN [id number] 05:11:00* Test Item Value Reference Range Comments PROTIME (BEAKER) (test nvny=860) 23.3 seconds 11.7-14.7 INR (BEAKER) (test ucri=943) 2.1 <=5.9 RECOMMENDED COUMADIN/WARFARIN INR THERAPY RANGESSTANDARD DOSE: 2.0 - 3.0 Includes: PROPHYLAXIS for venous thrombosis, systemic embolization; TREATMENT for venous thrombosis and/or pulmonary embolus.HIGH RISK: Target INR is 2.5-3.5 for patients with mechanical heart valves.POCT-GLUCOSE [id number] 21:27:00 * Test Item Value Reference Range Comments POC-GLUCOSE METER (BEAKER) (test lodx=9222) 264 mg/dL 70-110 TESTED AT [address] [address] POCT-GLUCOSE [id number] 18:13:00* Test Item Value Reference Range Comments POC-GLUCOSE METER (BEAKER) (test fkvr=1063) 95 mg/dL 70-110 TESTED AT [address] [address] POCT-GLUCOSE [id number] 17:46:00* Test Item Value Reference Range Comments POC-GLUCOSE METER (BEAKER) (test cdkd=6262) 60 mg/dL 70-110 TESTED AT [address] [address] POCT-GLUCOSE [id number] 17:23:00* Test Item Value Reference Range Comments POC-GLUCOSE METER (BEAKER) (test plev=4402) 58 mg/dL 70-110 TESTED AT [address] [address] POCT-GLUCOSE [id number] 12:14:00* Test Item Value Reference Range Comments POC-GLUCOSE METER (BEAKER) (test ndpx=0566) 204 mg/dL 70-110 TESTED AT [address] [address] POCT-GLUCOSE [id number] 08:39:00* Test Item Value Reference Range Comments POC-GLUCOSE METER (BEAKER) (test wtdb=2058) 234 mg/dL 70-110 TESTED AT [address] [address] CBC W/PLT COUNT & AUTO [id number] 04:24:00* Test Item Value Reference Range Comments WHITE BLOOD CELL COUNT (BEAKER) (test ryoe=700) 2.3 K/ L 4.0-10.0 RED BLOOD CELL COUNT (BEAKER) (test gwqq=081) 2.37 M/ L 4.00-5.00 HEMOGLOBIN (BEAKER) (test zmqq=977) 8.6 GM/DL 12.0-15.0 HEMATOCRIT (BEAKER) (test nzfk=606) 26.6 % 36.0-45.0 MEAN CORPUSCULAR VOLUME (BEAKER) (test xbvy=752) 112.0 fL 82.0-99.0 MEAN CORPUSCULAR HEMOGLOBIN (BEAKER) (test bcla=274) 36.2 pg 27.0-33.0 MEAN CORPUSCULAR HEMOGLOBIN CONC (BEAKER) (test rfbo=610) 32.3 GM/DL 32.0- 36.0 RED CELL DISTRIBUTION WIDTH (BEAKER) (test hsza=961) 16.8 % 10.3-14.2 PLATELET COUNT (BEAKER) (test trjg=628) 36 K/CU MM 150-430 MEAN PLATELET VOLUME (BEAKER) (test gpop=304) 9.0 fL 6.5-10.5 NUCLEATED RED BLOOD CELLS (BEAKER) (test rcrl=702) 0 /100 WBC 0-0 NEUTROPHILS RELATIVE PERCENT (BEAKER) (test oxuj=746) 70 % LYMPHOCYTES RELATIVE PERCENT (BEAKER) (test jfxw=075) 23 % MONOCYTES RELATIVE PERCENT (BEAKER) (test vphp=327) 7 % EOSINOPHILS RELATIVE PERCENT (BEAKER) (test kgkr=616) 0 % BASOPHILS RELATIVE PERCENT (BEAKER) (test adaj=320) 1 % NEUTROPHILS ABSOLUTE COUNT (BEAKER) (test ddei=050) 1.57 K/ L 1.80-8.00 LYMPHOCYTES ABSOLUTE COUNT (BEAKER) (test lhnn=221) 0.51 K/ L 1.48-4.50 MONOCYTES ABSOLUTE COUNT (BEAKER) (test ioje=423) 0.15 K/ L 0.00-1.30 EOSINOPHILS ABSOLUTE COUNT (BEAKER) (test fees=743) 0.01 K/ L 0.00-0.50 BASOPHILS ABSOLUTE COUNT (BEAKER) (test vosm=057) 0.01 K/ L 0.00-0.20 COMPREHENSIVE METABOLIC [id number] 04:18:00* Test Item Value Reference Range Comments TOTAL PROTEIN (BEAKER) (test zjoq=200) 5.2 gm/dL 6.0-8.3 ALBUMIN (BEAKER) (test rzyf=2962) 2.5 g/dL 3.5-5.0 ALKALINE PHOSPHATASE (BEAKER) (test igbr=460) 73 U/L 40-150 BILIRUBIN TOTAL (BEAKER) (test hqox=393) 3.3 mg/dL 0.2-1.2 SODIUM (BEAKER) (test txky=959) 136 meq/L 136-145 POTASSIUM (BEAKER) (test qhmx=561) 4.5 meq/L 3.5-5.1 CHLORIDE (BEAKER) (test ciwr=824) 109 meq/L 98-107 CO2 (BEAKER) (test rfgw=484) 21 meq/L 22-29 BLOOD UREA NITROGEN (BEAKER) (test dcha=057) 22 mg/dL 7-21 CREATININE (BEAKER) (test jirc=043) 0.87 mg/dL 0.57-1.25 GLUCOSE RANDOM (BEAKER) (test fmmm=666) 108 mg/dL 70-105 CALCIUM (BEAKER) (test kwtn=495) 8.1 mg/dL 8.4-10.2 AST (SGOT) (BEAKER) (test zdhw=979) 22 U/L 5-34 ALT (SGPT) (BEAKER) (test avty=377) 15 U/L 6-55 EGFR (BEAKER) (test pjzn=0227) 69 mL/min/1.73 sq m ESTIMATED GFR IS NOT ACCURATE CREATININE CLEARANCE IN PREDICTING GLOMERULAR FILTRATION RATE. ESTIMATED GFR IS NOT APPLICABLE FOR DIALYSIS PATIENTS. Specimen slightly [id number] 04:09:00* Test Item Value Reference Range Comments AMMONIA (BEAKER) (test wgof=173) 46 mol/L 18-72 PROTHROMBIN TIME/[id number] 04:00:00* Test Item Value Reference Range Comments PROTIME (BEAKER) (test dmaa=143) 22.2 seconds 11.7-14.7 INR (BEAKER) (test ayyf=652) 2.0 <=5.9 RECOMMENDED COUMADIN/WARFARIN INR THERAPY RANGESSTANDARD DOSE: 2.0 - 3.0 Includes: PROPHYLAXIS for venous thrombosis, systemic embolization; TREATMENT for venous thrombosis and/or pulmonary embolus.HIGH RISK: Target INR is 2.5-3.5 for patients with mechanical heart valves.BLOOD [id number] 00:00:00* Test Item Value Reference Range Comments CULTURE (BEAKER) (test jmat=9669) No growth in 5 days BLOOD [id number] 00:00:00* Test Item Value Reference Range Comments CULTURE (BEAKER) (test hyyz=6370) No growth in 5 days POCT-GLUCOSE [id number] 22:17:00* Test Item Value Reference Range Comments POC-GLUCOSE METER (BEAKER) (test ipjs=1808) 76 mg/dL 70-110 TESTED AT [facility] [address] [facility] [address] POCT-GLUCOSE [id number] 17:29:00* Test Item Value Reference Range Comments POC-GLUCOSE METER (BEAKER) (test svaa=1792) 185 mg/dL 70-110 TESTED AT [facility] [address] [facility] [address] CBC W/PLT COUNT & AUTO [id number] 14:52:00* Test Item Value Reference Range Comments WHITE BLOOD CELL COUNT (BEAKER) (test rmfi=546) 2.5 K/ L 4.0-10.0 RED BLOOD CELL COUNT (BEAKER) (test ppia=666) 2.34 M/ L 4.00-5.00 HEMOGLOBIN (BEAKER) (test ubnv=085) 8.5 GM/DL 12.0-15.0 HEMATOCRIT (BEAKER) (test bgcx=707) 26.3 % 36.0-45.0 MEAN CORPUSCULAR VOLUME (BEAKER) (test toac=356) 112.0 fL 82.0-99.0 MEAN CORPUSCULAR HEMOGLOBIN (BEAKER) (test rdlm=569) 36.3 pg 27.0-33.0 MEAN CORPUSCULAR HEMOGLOBIN CONC (BEAKER) (test uhbl=831) 32.4 GM/DL 32.0- 36.0 RED CELL DISTRIBUTION WIDTH (BEAKER) (test hdgq=043) 15.3 % 10.3-14.2 PLATELET COUNT (BEAKER) (test uqmy=182) 41 K/CU MM 150-430 MEAN PLATELET VOLUME (BEAKER) (test edeo=390) 9.6 fL 6.5-10.5 NUCLEATED RED BLOOD CELLS (BEAKER) (test hppl=636) 0 /100 WBC 0-0 NEUTROPHILS RELATIVE PERCENT (BEAKER) (test qnma=292) 76 % LYMPHOCYTES RELATIVE PERCENT (BEAKER) (test quuc=985) 18 % MONOCYTES RELATIVE PERCENT (BEAKER) (test myun=361) 6 % EOSINOPHILS RELATIVE PERCENT (BEAKER) (test udud=893) 0 % BASOPHILS RELATIVE PERCENT (BEAKER) (test ooyo=601) 0 % NEUTROPHILS ABSOLUTE COUNT (BEAKER) (test lzgy=602) 1.93 K/ L 1.80-8.00 LYMPHOCYTES ABSOLUTE COUNT (BEAKER) (test uuwh=637) 0.46 K/ L 1.48-4.50 MONOCYTES ABSOLUTE COUNT (BEAKER) (test ixyj=579) 0.14 K/ L 0.00-1.30 EOSINOPHILS ABSOLUTE COUNT (BEAKER) (test yyjw=978) 0.01 K/ L 0.00-0.50 BASOPHILS ABSOLUTE COUNT (BEAKER) (test azjl=016) 0.00 K/ L 0.00-0.20 0.00(MANUAL DIFFERENTIAL)2017-02-16 14:52:00* Test Item Value Reference Range Comments TOTAL COUNTED (BEAKER) (test qxda=4164) WBC MORPHOLOGY (BEAKER) (test pidw=621) Normal PLT MORPHOLOGY (BEAKER) (test bpjb=394) Normal ACANTHOCYTES (BEAKER) (test dzjr=352) 1+ few ANISOCYTOSIS (BEAKER) (test abyn=205) 1+ few HYPOCHROMIA (BEAKER) (test jtnj=584) 2+ moderate MACROCYTES (BEAKER) (test nfvj=601) 1+ few OVALOCYTES (BEAKER) (test ksym=337) 1+ few POIKILOCYTES (BEAKER) (test mjbw=252) 1+ few POLYCHROMATOPHILLIC RBCS(BEAKER) (test pyjt=110) 1+ few TEAR DROP CELLS (BEAKER) (test uehd=474) 1+ few URINE [id number] 13:34:00* Test Item Value Reference Range Comments CULTURE (BEAKER) (test kgmn=4999) No growth POCT-GLUCOSE [id number] 11:45:00* Test Item Value Reference Range Comments POC-GLUCOSE METER (BEAKER) (test wvxy=2223) 280 mg/dL 70-110 TESTED AT [place] [id number] [facility] [address] POCT-GLUCOSE [id number] 08:11:00* Test Item Value Reference Range Comments POC-GLUCOSE METER (BEAKER) (test csmf=2670) 300 mg/dL 70-110 TESTED AT [place] [id number] [facility] [address] COMPREHENSIVE METABOLIC [id number] 06:53:00* Test Item Value Reference Range Comments TOTAL PROTEIN (BEAKER) (test ntbi=324) 5.2 gm/dL 6.0-8.3 ALBUMIN (BEAKER) (test abjl=7853) 2.5 g/dL 3.5-5.0 ALKALINE PHOSPHATASE (BEAKER) (test vswk=468) 86 U/L 40-150 BILIRUBIN TOTAL (BEAKER) (test pndj=089) 3.2 mg/dL 0.2-1.2 SODIUM (BEAKER) (test wmix=444) 137 meq/L 136-145 POTASSIUM (BEAKER) (test cjxq=336) 4.7 meq/L 3.5-5.1 CHLORIDE (BEAKER) (test ramh=977) 111 meq/L 98-107 CO2 (BEAKER) (test udzo=109) 21 meq/L 22-29 BLOOD UREA NITROGEN (BEAKER) (test wrfi=069) 24 mg/dL 7-21 CREATININE (BEAKER) (test qyab=762) 0.89 mg/dL 0.57-1.25 GLUCOSE RANDOM (BEAKER) (test psns=841) 238 mg/dL 70-105 CALCIUM (BEAKER) (test fhfr=629) 8.1 mg/dL 8.4-10.2 AST (SGOT) (BEAKER) (test vaed=305) 23 U/L 5-34 ALT (SGPT) (BEAKER) (test mbqc=755) 17 U/L 6-55 EGFR (BEAKER) (test sqhe=2492) 67 mL/min/1.73 sq m ESTIMATED GFR IS NOT ACCURATE CREATININE CLEARANCE IN PREDICTING GLOMERULAR FILTRATION RATE. ESTIMATED GFR IS NOT APPLICABLE FOR DIALYSIS PATIENTS. Specimen slightly [id number] 06:39:00* Test Item Value Reference Range Comments AMMONIA (BEAKER) (test aoal=030) 74 mol/L 18-72 LACTIC ACID, VENOUS, WHOLE [id number] 06:34:00* Test Item Value Reference Range Comments LACTATE BLOOD VENOUS (2) (BEAKER) (test nepm=0508) 1.0 mmol/L 0.5-2.2 Effective 12/21/2015: Units/Reference Range ChangeNew: 0.5-2.2 mmol/L Previous: 5 -20 mg/dLSpecimen slightly ictericLACTIC ACID, VENOUS, WHOLE [id number] 06: 34:00* Test Item Value Reference Range Comments LACTATE BLOOD VENOUS (2) (BEAKER) (test isew=2560) 1.0 mmol/L 0.5-2.2 Specimen slightly hemolyzed Effective 12/21/2015: Units/Reference Range ChangeNew: 0.5-2.2 mmol/L Previous: 5 -20 mg/dLSpecimen slightly ictericPROTHROMBIN [id number] 06:24:00* Test Item Value Reference Range Comments PROTIME (BEAKER) (test jgjz=374) 21.7 seconds 11.7-14.7 INR (BEAKER) (test gsic=737) 1.9 <=5.9 RECOMMENDED COUMADIN/WARFARIN INR THERAPY RANGESSTANDARD DOSE: 2.0 - 3.0 Includes: PROPHYLAXIS for venous thrombosis, systemic embolization; TREATMENT for venous thrombosis and/or pulmonary embolus.HIGH RISK: Target INR is 2.5-3.5 for patients with mechanical heart valves.POCT-GLUCOSE [id number] 22:34:00 * Test Item Value Reference Range Comments POC-GLUCOSE METER (BEAKER) (test fcqx=2394) 318 mg/dL 70-110 [address]ED AT [address] [address] POCT-GLUCOSE [id number] 22:20:00* Test Item Value Reference Range Comments POC-GLUCOSE METER (BEAKER) (test nqrf=6452) 314 mg/dL 70-110 TESTED AT [address] [address] POCT-GLUCOSE [id number] 17:18:00* Test Item Value Reference Range Comments POC-GLUCOSE METER (BEAKER) (test smlh=4562) 357 mg/dL 70-110 Notified SELVIN JACOBSON/ TESTED AT [address] [address] POCT-GLUCOSE [id number] 12:25:00* Test Item Value Reference Range Comments POC-GLUCOSE METER (BEAKER) (test qzkv=7499) 211 mg/dL 70-110 TESTED AT [address] [address] [id number] 08:51:00* Test Item Value Reference Range Comments AMMONIA (BEAKER) (test xycc=665) 76 mol/L 18-72 POCT-GLUCOSE [id number] 06:42:00* Test Item Value Reference Range Comments POC-GLUCOSE METER (BEAKER) (test cjbc=0118) 219 mg/dL 70-110 TESTED AT [facility] [address] [facility] [address] [id number] 05:23:00* Test Item Value Reference Range Comments PHOSPHORUS (BEAKER) (test qtau=013) 2.8 mg/dL 2.3-4.7 [id number] 05:23:00* Test Item Value Reference Range Comments MAGNESIUM (BEAKER) (test epln=389) 1.8 mg/dL 1.6-2.6 COMPREHENSIVE METABOLIC [id number] 05:23:00* Test Item Value Reference Range Comments TOTAL PROTEIN (BEAKER) (test aqfy=448) 4.9 gm/dL 6.0-8.3 ALBUMIN (BEAKER) (test ixyn=7598) 2.3 g/dL 3.5-5.0 ALKALINE PHOSPHATASE (BEAKER) (test zdyy=944) 71 U/L 40-150 BILIRUBIN TOTAL (BEAKER) (test ksnp=288) 3.5 mg/dL 0.2-1.2 SODIUM (BEAKER) (test fvrw=030) 137 meq/L 136-145 POTASSIUM (BEAKER) (test yvpb=528) 3.7 meq/L 3.5-5.1 CHLORIDE (BEAKER) (test rbng=874) 109 meq/L 98-107 CO2 (BEAKER) (test kmha=078) 21 meq/L 22-29 BLOOD UREA NITROGEN (BEAKER) (test uqjf=906) 24 mg/dL 7-21 CREATININE (BEAKER) (test brio=664) 0.81 mg/dL 0.57-1.25 GLUCOSE RANDOM (BEAKER) (test urui=947) 225 mg/dL 70-105 CALCIUM (BEAKER) (test yewe=301) 8.1 mg/dL 8.4-10.2 AST (SGOT) (BEAKER) (test lgvn=465) 23 U/L 5-34 ALT (SGPT) (BEAKER) (test etvy=682) 17 U/L 6-55 EGFR (BEAKER) (test rwcm=4901) 75 mL/min/1.73 sq m ESTIMATED GFR IS NOT ACCURATE CREATININE CLEARANCE IN PREDICTING GLOMERULAR FILTRATION RATE. ESTIMATED GFR IS NOT APPLICABLE FOR DIALYSIS PATIENTS. Specimen slightly ictericCBC W/PLT COUNT & AUTO [id number] 05:07:00 * Test Item Value Reference Range Comments WHITE BLOOD CELL COUNT (BEAKER) (test pucg=722) 3.0 K/ L 4.0-10.0 RED BLOOD CELL COUNT (BEAKER) (test tqsy=571) 2.40 M/ L 4.00-5.00 HEMOGLOBIN (BEAKER) (test suga=701) 8.8 GM/DL 12.0-15.0 HEMATOCRIT (BEAKER) (test pjms=752) 26.6 % 36.0-45.0 MEAN CORPUSCULAR VOLUME (BEAKER) (test iaft=076) 111.0 fL 82.0-99.0 MEAN CORPUSCULAR HEMOGLOBIN (BEAKER) (test ozxy=297) 36.8 pg 27.0-33.0 MEAN CORPUSCULAR HEMOGLOBIN CONC (BEAKER) (test weub=272) 33.2 GM/DL 32.0- 36.0 RED CELL DISTRIBUTION WIDTH (BEAKER) (test dzkb=205) 14.8 % 10.3-14.2 PLATELET COUNT (BEAKER) (test mnve=147) 50 K/CU MM 150-430 MEAN PLATELET VOLUME (BEAKER) (test slyl=069) 8.5 fL 6.5-10.5 NUCLEATED RED BLOOD CELLS (BEAKER) (test ooyl=338) 0 /100 WBC 0-0 NEUTROPHILS RELATIVE PERCENT (BEAKER) (test iodz=135) 80 % LYMPHOCYTES RELATIVE PERCENT (BEAKER) (test ffah=996) 14 % MONOCYTES RELATIVE PERCENT (BEAKER) (test yseu=192) 4 % EOSINOPHILS RELATIVE PERCENT (BEAKER) (test ixka=327) 1 % BASOPHILS RELATIVE PERCENT (BEAKER) (test exwh=727) 0 % NEUTROPHILS ABSOLUTE COUNT (BEAKER) (test ztnn=890) 2.41 K/ L 1.80-8.00 LYMPHOCYTES ABSOLUTE COUNT (BEAKER) (test qrza=907) 0.41 K/ L 1.48-4.50 MONOCYTES ABSOLUTE COUNT (BEAKER) (test qagp=468) 0.13 K/ L 0.00-1.30 EOSINOPHILS ABSOLUTE COUNT (BEAKER) (test dprp=157) 0.04 K/ L 0.00-0.50 BASOPHILS ABSOLUTE COUNT (BEAKER) (test dmjv=205) 0.01 K/ L 0.00-0.20 0.00B-TYPE NATRIURETIC FACTOR (BNP)2017-02-15 05:07:00* Test Item Value Reference Range Comments B-TYPE NATRIURETIC PEPTIDE (BEAKER) (test deww=444) 232 pg/mL 0-100 PROTHROMBIN [id number] 05:01:00* Test Item Value Reference Range Comments PROTIME (BEAKER) (test paiq=285) 21.7 seconds 11.7-14.7 INR (BEAKER) (test ppvo=848) 1.9 <=5.9 RECOMMENDED COUMADIN/WARFARIN INR THERAPY RANGESSTANDARD DOSE: 2.0 - 3.0 Includes: PROPHYLAXIS for venous thrombosis, systemic embolization; TREATMENT for venous thrombosis and/or pulmonary embolus.HIGH RISK: Target INR is 2.5-3.5 for patients with mechanical heart valves.LACTIC ACID, VENOUS, WHOLE [id number] 04:56:00* Test Item Value Reference Range Comments LACTATE BLOOD VENOUS (2) (BEAKER) (test zdpi=0572) 1.2 mmol/L 0.5-2.2 Effective 12/21/2015: Units/Reference Range ChangeNew: 0.5-2.2 mmol/L Previous: 5 -20 mg/dLSpecimen slightly ictericPOCT-GLUCOSE [id number] 00:36:00* Test Item Value Reference Range Comments POC-GLUCOSE METER (BEAKER) (test uhdq=6883) 301 mg/dL 70-110 TESTED AT [address] [address] LACTIC ACID, VENOUS, WHOLE [id number] 18:54:00* Test Item Value Reference Range Comments LACTATE BLOOD VENOUS (2) (BEAKER) (test hoey=9532) 2.2 mmol/L 0.5-2.2 Effective 12/21/2015: Units/Reference Range ChangeNew: 0.5-2.2 mmol/L Previous: 5 -20 mg/dLSpecimen slightly ictericURINALYSIS W/ [id number] 18:25:00* Test Item Value Reference Range Comments COLOR (BEAKER) (test rekp=922) Yellow CLARITY (BEAKER) (test vzta=962) Clear SPECIFIC GRAVITY UA (BEAKER) (test vqab=073) 1.008 1.001-1.035 PH UA (BEAKER) (test pgyo=757) 7.0 5.0-8.0 PROTEIN UA (BEAKER) (test mtmd=572) Negative Negative GLUCOSE UA (BEAKER) (test whav=958) Negative Negative KETONES UA (BEAKER) (test rzwm=155) Negative Negative BILIRUBIN UA (BEAKER) (test ajas=051) Negative Negative BLOOD UA (BEAKER) (test uhuz=100) Small Negative NITRITE UA (BEAKER) (test phys=614) Negative Negative LEUKOCYTE ESTERASE UA (BEAKER) (test gqqi=250) Negative Negative UROBILINOGEN UA (BEAKER) (test vfxv=572) 0.2 mg/dL 0.2-1.0 RBC UA (BEAKER) (test zjea=593) 2 /HPF WBC UA (BEAKER) (test hoex=315) 1 /HPF SOURCE(BEAKER) (test fcfq=6622) Urine, [place] POCT-GLUCOSE [id number] 17:05:00* Test Item Value Reference Range Comments POC-GLUCOSE METER (BEAKER) (test eqsl=4192) 315 mg/dL 70-110 TESTED AT [place] [id number] [facility] [address] LACTIC ACID, VENOUS, WHOLE [id number] 16:23:00* Test Item Value Reference Range Comments LACTATE BLOOD VENOUS (2) (BEAKER) (test rvuo=2230) 2.4 mmol/L 0.5-2.2 Specimen slightly hemolyzed Effective 12/21/2015: Units/Reference Range ChangeNew: 0.5-2.2 mmol/L Previous: 5 -20 mg/dLSpecimen moderately ictericBLOOD GAS, [id number] 15:52:00* Test Item Value Reference Range Comments PH ARTERIAL (BEAKER) (test hcnt=915) 7.58 7.35-7.45 PCO2 ARTERIAL (BEAKER) (test rebt=457) 23 mmHg 35-45 PO2 ARTERIAL (BEAKER) (test ipli=306) 164 mmHg 80-90 O2 SATURATION ARTERIAL (BEAKER) (test gxog=638) 99.4 % 96.0-97.0 HCO3 ARTERIAL (BEAKER) (test hnvs=878) 21 mmol/L 21-29 BASE EXCESS ARTERIAL (BEAKER) (test arpf=676) 0.0 mmol/L -2.0-3.0 PATIENT TEMPERATURE (BEAKER) (test tkuo=3319) 36.5 C FIO2 (BEAKER) (test hfub=3394) 28.0 % POCT-GLUCOSE [id number] 12:34:00* Test Item Value Reference Range Comments POC-GLUCOSE METER (BEAKER) (test scuw=6024) 324 mg/dL 70-110 TESTED AT [facility] [address] [facility] [address] [id number] 12:09:00* Test Item Value Reference Range Comments PHOSPHORUS (BEAKER) (test loqc=567) 2.2 mg/dL 2.3-4.7 [id number] 12:09:00* Test Item Value Reference Range Comments MAGNESIUM (BEAKER) (test gvyd=293) 1.9 mg/dL 1.6-2.6 COMPREHENSIVE METABOLIC [id number] 12:09:00* Test Item Value Reference Range Comments TOTAL PROTEIN (BEAKER) (test ujnq=458) 5.9 gm/dL 6.0-8.3 ALBUMIN (BEAKER) (test bjwh=6799) 2.5 g/dL 3.5-5.0 ALKALINE PHOSPHATASE (BEAKER) (test pcma=882) 99 U/L 40-150 BILIRUBIN TOTAL (BEAKER) (test qgiw=573) 4.1 mg/dL 0.2-1.2 SODIUM (BEAKER) (test gprr=658) 133 meq/L 136-145 POTASSIUM (BEAKER) (test klrg=231) 4.5 meq/L 3.5-5.1 CHLORIDE (BEAKER) (test dgqw=284) 104 meq/L 98-107 CO2 (BEAKER) (test mwxe=245) 19 meq/L 22-29 BLOOD UREA NITROGEN (BEAKER) (test nfjy=980) 25 mg/dL 7-21 CREATININE (BEAKER) (test kmrg=674) 1.22 mg/dL 0.57-1.25 GLUCOSE RANDOM (BEAKER) (test zfhv=244) 243 mg/dL 70-105 CALCIUM (BEAKER) (test fcvw=927) 8.3 mg/dL 8.4-10.2 AST (SGOT) (BEAKER) (test vndx=578) 28 U/L 5-34 ALT (SGPT) (BEAKER) (test zyiy=444) 20 U/L 6-55 EGFR (BEAKER) (test cqaj=1667) 47 mL/min/1.73 sq m ESTIMATED GFR IS NOT ACCURATE CREATININE CLEARANCE IN PREDICTING GLOMERULAR FILTRATION RATE. ESTIMATED GFR IS NOT APPLICABLE FOR DIALYSIS PATIENTS. Specimen moderately ictericHEPATIC FUNCTION [id number] 12:09:00* Test Item Value Reference Range Comments TOTAL PROTEIN (BEAKER) (test huxk=024) 5.9 gm/dL 6.0-8.3 ALBUMIN (BEAKER) (test dmwk=8695) 2.5 g/dL 3.5-5.0 BILIRUBIN TOTAL (BEAKER) (test ixop=309) 4.1 mg/dL 0.2-1.2 BILIRUBIN DIRECT (BEAKER) (test bvwp=331) 1.7 mg/dL 0.1-0.5 ALKALINE PHOSPHATASE (BEAKER) (test jgkf=462) 99 U/L 40-150 AST (SGOT) (BEAKER) (test vhyx=242) 28 U/L 5-34 ALT (SGPT) (BEAKER) (test vlaf=777) 20 U/L 6-55 Specimen moderately ictericPROTHROMBIN [id number] 12:05:00* Test Item Value Reference Range Comments PROTIME (BEAKER) (test qrea=403) 19.3 seconds 11.7-14.7 INR (BEAKER) (test yrsy=455) 1.6 <=5.9 RECOMMENDED COUMADIN/WARFARIN INR THERAPY RANGESSTANDARD DOSE: 2.0 - 3.0 Includes: PROPHYLAXIS for venous thrombosis, systemic embolization; TREATMENT for venous thrombosis and/or pulmonary embolus.HIGH RISK: Target INR is 2.5-3.5 for patients with mechanical heart valves.CBC W/PLT COUNT & AUTO [id number] 12:00:00* Test Item Value Reference Range Comments WHITE BLOOD CELL COUNT (BEAKER) (test zvsc=367) 3.0 K/ L 4.0-10.0 RED BLOOD CELL COUNT (BEAKER) (test btbt=170) 3.08 M/ L 4.00-5.00 HEMOGLOBIN (BEAKER) (test xvme=193) 11.6 GM/DL 12.0-15.0 HEMATOCRIT (BEAKER) (test tvvj=363) 34.1 % 36.0-45.0 MEAN CORPUSCULAR VOLUME (BEAKER) (test gzti=133) 111.0 fL 82.0-99.0 MEAN CORPUSCULAR HEMOGLOBIN (BEAKER) (test yoaw=604) 37.6 pg 27.0-33.0 MEAN CORPUSCULAR HEMOGLOBIN CONC (BEAKER) (test sfim=865) 34.0 GM/DL 32.0- 36.0 RED CELL DISTRIBUTION WIDTH (BEAKER) (test myxd=135) 16.4 % 10.3-14.2 PLATELET COUNT (BEAKER) (test czbc=518) 39 K/CU MM 150-430 MEAN PLATELET VOLUME (BEAKER) (test jqca=639) 10.0 fL 6.5-10.5 NUCLEATED RED BLOOD CELLS (BEAKER) (test mxlv=909) 0 /100 WBC 0-0 NEUTROPHILS RELATIVE PERCENT (BEAKER) (test qmui=713) 81 % LYMPHOCYTES RELATIVE PERCENT (BEAKER) (test uevl=593) 13 % MONOCYTES RELATIVE PERCENT (BEAKER) (test yeny=098) 5 % EOSINOPHILS RELATIVE PERCENT (BEAKER) (test udsu=040) 1 % BASOPHILS RELATIVE PERCENT (BEAKER) (test fqpi=947) 0 % NEUTROPHILS ABSOLUTE COUNT (BEAKER) (test ukor=180) 2.42 K/ L 1.80-8.00 LYMPHOCYTES ABSOLUTE COUNT (BEAKER) (test wrgr=588) 0.40 K/ L 1.48-4.50 MONOCYTES ABSOLUTE COUNT (BEAKER) (test wkbl=074) 0.16 K/ L 0.00-1.30 EOSINOPHILS ABSOLUTE COUNT (BEAKER) (test pxyt=311) 0.02 K/ L 0.00-0.50 BASOPHILS ABSOLUTE COUNT (BEAKER) (test tkzb=549) 0.00 K/ L 0.00-0.20 [id number] 11:59:00* Test Item Value Reference Range Comments AMMONIA (BEAKER) (test gews=563) 187 mol/L 18-72 LACTIC ACID, VENOUS, WHOLE [id number] 11:45:00* Test Item Value Reference Range Comments LACTATE BLOOD VENOUS (2) (BEAKER) (test eark=5160) 3.2 mmol/L 0.5-2.2 Effective 12/21/2015: Units/Reference Range ChangeNew: 0.5-2.2 mmol/L Previous: 5 -20 mg/dLSpecimen moderately ictericPOCT-GLUCOSE [id number] 10:14:00* Test Item Value Reference Range Comments POC-GLUCOSE METER (BEAKER) (test anyl=8334) 288 mg/dL 70-110 [address]ED AT [address] [address] POCT-GLUCOSE [id number] 10:14:00* Test Item Value Reference Range Comments POC-GLUCOSE METER (BEAKER) (test unke=0093) 237 mg/dL 70-110 TESTED AT [address] [address] POCT-GLUCOSE [id number] 08:28:00* Test Item Value Reference Range Comments POC-GLUCOSE METER (BEAKER) (test xkuf=3158) 255 mg/dL 70-110 TESTED AT [address] [address] POCT-GLUCOSE [id number] 21:45:00* Test Item Value Reference Range Comments POC-GLUCOSE METER (BEAKER) (test avvq=2398) 75 mg/dL 70-110 TESTED AT [address] [address] POCT-GLUCOSE [id number] 18:09:00* Test Item Value Reference Range Comments POC-GLUCOSE METER (BEAKER) (test duhu=8561) 117 mg/dL 70-110 TESTED AT [address] [address] CBC W/PLT COUNT & AUTO [id number] 15:36:00* Test Item Value Reference Range Comments WHITE BLOOD CELL COUNT (BEAKER) (test wuli=908) 1.9 K/ L 4.0-10.0 RED BLOOD CELL COUNT (BEAKER) (test jjeq=147) 2.50 M/ L 4.00-5.00 HEMOGLOBIN (BEAKER) (test ahwp=703) 8.8 GM/DL 12.0-15.0 HEMATOCRIT (BEAKER) (test krbk=329) 28.0 % 36.0-45.0 MEAN CORPUSCULAR VOLUME (BEAKER) (test xbfk=180) 112.0 fL 82.0-99.0 MEAN CORPUSCULAR HEMOGLOBIN (BEAKER) (test ijkf=171) 35.1 pg 27.0-33.0 MEAN CORPUSCULAR HEMOGLOBIN CONC (BEAKER) (test vmsv=513) 31.4 GM/DL 32.0- 36.0 RED CELL DISTRIBUTION WIDTH (BEAKER) (test gnfe=818) 16.1 % 10.3-14.2 PLATELET COUNT (BEAKER) (test jpru=975) 37 K/CU MM 150-430 MEAN PLATELET VOLUME (BEAKER) (test ismv=823) 9.5 fL 6.5-10.5 NUCLEATED RED BLOOD CELLS (BEAKER) (test gcaz=812) 0 /100 WBC 0-0 NEUTROPHILS RELATIVE PERCENT (BEAKER) (test liuk=676) 67 % LYMPHOCYTES RELATIVE PERCENT (BEAKER) (test hgan=519) 25 % MONOCYTES RELATIVE PERCENT (BEAKER) (test tstv=240) 7 % EOSINOPHILS RELATIVE PERCENT (BEAKER) (test glla=979) 1 % BASOPHILS RELATIVE PERCENT (BEAKER) (test ghqi=569) 1 % NEUTROPHILS ABSOLUTE COUNT (BEAKER) (test rbid=640) 1.30 K/ L 1.80-8.00 LYMPHOCYTES ABSOLUTE COUNT (BEAKER) (test jsco=516) 0.48 K/ L 1.48-4.50 MONOCYTES ABSOLUTE COUNT (BEAKER) (test kbrg=597) 0.13 K/ L 0.00-1.30 EOSINOPHILS ABSOLUTE COUNT (BEAKER) (test ryes=326) 0.01 K/ L 0.00-0.50 BASOPHILS ABSOLUTE COUNT (BEAKER) (test trct=305) 0.01 K/ L 0.00-0.20 0.00CLOSTRIDIUM DIFFICILE TOXIN [id number] 15:07:00* Test Item Value Reference Range Comments CLOSTRIDIUM DIFFICILE TOXIN, PCR (BEAKER) (test wgjo=4511) Detected Not Detected This qualitative real-time polymerase chain reaction assay detects the tcdB gene , encoded on the C.difficile pathogenicity locus (PaLoc). The product of tcdB, toxin B, is a cytotoxin essential for causing C.difficile-associated disease ( CDAD) and is found in virtually all toxigenic C.difficile.This assay is performed for patients suspected of having either community-acquired or nosocomial CDAD. Accordingly, only symptomatic patients should be tested and formed stools will be rejected unless ileus is present (i.e., specified when ordering). Patients may be colonized with toxigenic C.difficile strains not causing active disease; therefore, clinical correlation is needed when deciding how to manage patients with a positive test result.The assay has not been validated as a test of cure as amplifiable nucleic acid may persist after effective treatment; therefore, follow-up testing of a positive result is not recommended.[id number] 13:06:00* Test Item Value Reference Range Comments PREALBUMIN (BEAKER) (test vdnu=443) 6 mg/dL 14-45 Listed for liver transplant - nutrition surveillance (hepatology)[id number] 13:05:00* Test Item Value Reference Range Comments MAGNESIUM (BEAKER) (test wdcs=104) 1.2 mg/dL 1.6-2.6 BASIC METABOLIC [id number] 13:05:00* Test Item Value Reference Range Comments SODIUM (BEAKER) (test frvj=332) 134 meq/L 136-145 POTASSIUM (BEAKER) (test pupz=618) 3.8 meq/L 3.5-5.1 CHLORIDE (BEAKER) (test gfhd=573) 104 meq/L 98-107 CO2 (BEAKER) (test blxy=133) 25 meq/L 22-29 BLOOD UREA NITROGEN (BEAKER) (test lvgl=258) 21 mg/dL 7-21 CREATININE (BEAKER) (test dfdy=281) 0.92 mg/dL 0.57-1.25 GLUCOSE RANDOM (BEAKER) (test bkbz=799) 322 mg/dL 70-105 CALCIUM (BEAKER) (test zoio=609) 8.3 mg/dL 8.4-10.2 EGFR (BEAKER) (test uujp=2183) 65 mL/min/1.73 sq m ESTIMATED GFR IS NOT ACCURATE CREATININE CLEARANCE IN PREDICTING GLOMERULAR FILTRATION RATE. ESTIMATED GFR IS NOT APPLICABLE FOR DIALYSIS PATIENTS. Specimen slightly ictericPOCT-GLUCOSE [id number] 11:49:00* Test Item Value Reference Range Comments POC-GLUCOSE METER (BEAKER) (test zvkl=7991) 339 mg/dL 70-110 TESTED AT [address] [address] URINE [id number] 10:47:00* Test Item Value Reference Range Comments CULTURE (BEAKER) (test imra=6769) See comment >100,000 col/mL enteric organisms of >2 types. No further workup performed. Multiple organisms suggestive of colonization or contamination. Repeat collection recommended.>100,000 col/mL skin floraPOCT-GLUCOSE [id number] 08 :50:00* Test Item Value Reference Range Comments POC-GLUCOSE METER (BEAKER) (test shqx=9124) 404 mg/dL 70-110 TESTED AT [address] [address] POCT-GLUCOSE [id number] 21:29:00* Test Item Value Reference Range Comments POC-GLUCOSE METER (BEAKER) (test rxfc=5188) 245 mg/dL 70-110 TESTED AT [address] [address] POCT-GLUCOSE [id number] 18:08:00* Test Item Value Reference Range Comments POC-GLUCOSE METER (BEAKER) (test hcji=7094) 66 mg/dL 70-110 TESTED AT [address] [address] [id number] 15:36:00* Test Item Value Reference Range Comments FIBRINOGEN LEVEL (BEAKER) (test perx=594) 164 mg/dl 225-434 To AM labsPOCT-GLUCOSE [id number] 12:04:00* Test Item Value Reference Range Comments POC-GLUCOSE METER (BEAKER) (test tqfe=7881) 387 mg/dL 70-110 TESTED AT [address] [address] CBC W/PLT COUNT & AUTO [id number] 09:27:00* Test Item Value Reference Range Comments WHITE BLOOD CELL COUNT (BEAKER) (test sykt=204) 1.7 K/ L 4.0-10.0 RED BLOOD CELL COUNT (BEAKER) (test xyxl=547) 2.48 M/ L 4.00-5.00 HEMOGLOBIN (BEAKER) (test mjhz=157) 8.8 GM/DL 12.0-15.0 HEMATOCRIT (BEAKER) (test oyta=045) 27.5 % 36.0-45.0 MEAN CORPUSCULAR VOLUME (BEAKER) (test eejg=670) 111.0 fL 82.0-99.0 MEAN CORPUSCULAR HEMOGLOBIN (BEAKER) (test gzfn=460) 35.5 pg 27.0-33.0 MEAN CORPUSCULAR HEMOGLOBIN CONC (BEAKER) (test mliu=219) 32.0 GM/DL 32.0- 36.0 RED CELL DISTRIBUTION WIDTH (BEAKER) (test dyep=168) 16.3 % 10.3-14.2 PLATELET COUNT (BEAKER) (test ylgp=128) 28 K/CU MM 150-430 MEAN PLATELET VOLUME (BEAKER) (test xfuu=254) 9.5 fL 6.5-10.5 NUCLEATED RED BLOOD CELLS (BEAKER) (test pjuj=676) 0 /100 WBC 0-0 NEUTROPHILS RELATIVE PERCENT (BEAKER) (test orbq=383) 70 % LYMPHOCYTES RELATIVE PERCENT (BEAKER) (test dpqh=139) 23 % MONOCYTES RELATIVE PERCENT (BEAKER) (test zebs=712) 7 % EOSINOPHILS RELATIVE PERCENT (BEAKER) (test ruwl=208) 1 % BASOPHILS RELATIVE PERCENT (BEAKER) (test pzaz=654) 0 % NEUTROPHILS ABSOLUTE COUNT (BEAKER) (test bnjf=893) 1.15 K/ L 1.80-8.00 LYMPHOCYTES ABSOLUTE COUNT (BEAKER) (test egyu=799) 0.37 K/ L 1.48-4.50 MONOCYTES ABSOLUTE COUNT (BEAKER) (test isce=278) 0.11 K/ L 0.00-1.30 EOSINOPHILS ABSOLUTE COUNT (BEAKER) (test dbbo=754) 0.02 K/ L 0.00-0.50 BASOPHILS ABSOLUTE COUNT (BEAKER) (test pjny=559) 0.00 K/ L 0.00-0.20 0.00(MANUAL DIFFERENTIAL)2017-02-12 09:27:00* Test Item Value Reference Range Comments TOTAL COUNTED (BEAKER) (test ofbq=1461) WBC MORPHOLOGY (BEAKER) (test quzb=941) Normal PLT MORPHOLOGY (BEAKER) (test gtpq=406) Normal OVALOCYTES (BEAKER) (test ccnz=625) 1+ few POLYCHROMATOPHILLIC RBCS(BEAKER) (test xnra=024) 1+ few POCT-GLUCOSE [id number] 07:29:00* Test Item Value Reference Range Comments POC-GLUCOSE METER (BEAKER) (test wwma=9849) 370 mg/dL 70-110 TESTED AT [facility] [address] [facility] [address] BASIC METABOLIC [id number] 06:14:00* Test Item Value Reference Range Comments SODIUM (BEAKER) (test nccr=928) 136 meq/L 136-145 POTASSIUM (BEAKER) (test mzak=427) 3.3 meq/L 3.5-5.1 CHLORIDE (BEAKER) (test cuam=041) 105 meq/L 98-107 CO2 (BEAKER) (test pscz=767) 26 meq/L 22-29 BLOOD UREA NITROGEN (BEAKER) (test cxgd=934) 22 mg/dL 7-21 CREATININE (BEAKER) (test jdrq=241) 0.95 mg/dL 0.57-1.25 GLUCOSE RANDOM (BEAKER) (test iked=195) 409 mg/dL 70-105 CALCIUM (BEAKER) (test nyae=327) 7.7 mg/dL 8.4-10.2 EGFR (BEAKER) (test lrke=8571) 62 mL/min/1.73 sq m ESTIMATED GFR IS NOT ACCURATE CREATININE CLEARANCE IN PREDICTING GLOMERULAR FILTRATION RATE. ESTIMATED GFR IS NOT APPLICABLE FOR DIALYSIS PATIENTS. Specimen slightly ictericHEPATIC FUNCTION [id number] 06:07:00* Test Item Value Reference Range Comments TOTAL PROTEIN (BEAKER) (test kdxv=544) 4.8 gm/dL 6.0-8.3 ALBUMIN (BEAKER) (test dian=2687) 2.1 g/dL 3.5-5.0 BILIRUBIN TOTAL (BEAKER) (test cyyo=787) 3.1 mg/dL 0.2-1.2 BILIRUBIN DIRECT (BEAKER) (test cdlz=233) 1.5 mg/dL 0.1-0.5 ALKALINE PHOSPHATASE (BEAKER) (test nsae=312) 80 U/L 40-150 AST (SGOT) (BEAKER) (test yaoi=500) 24 U/L 5-34 ALT (SGPT) (BEAKER) (test yznw=629) 15 U/L 6-55 Specimen slightly ictericPT/[id number] 05:57:00* Test Item Value Reference Range Comments PROTIME (BEAKER) (test ifcq=934) 22.4 seconds 11.7-14.7 INR (BEAKER) (test bmip=074) 2.0 <=5.9 PARTIAL THROMBOPLASTIN TIME (BEAKER) (test bkdw=108) 38.6 seconds 22.5-36.0 RECOMMENDED COUMADIN/WARFARIN INR THERAPY RANGESSTANDARD DOSE: 2.0 - 3.0 Includes: PROPHYLAXIS for venous thrombosis, systemic embolization; TREATMENT for venous thrombosis and/or pulmonary embolus.HIGH RISK: Target INR is 2.5-3.5 for patients with mechanical heart valves.POCT-GLUCOSE [id number] 01:51:00 * Test Item Value Reference Range Comments POC-GLUCOSE METER (BEAKER) (test kkta=3449) 349 mg/dL 70-110 Notified SELVIN JACOBSON/ TESTED AT [facility] [address] [facility] [address] RAPID DRUG SCREEN, [id number] 19:58:00* Test Item Value Reference Range Comments BARBITURATE URINE (BEAKER) (test hbrw=276) Negative Negative BENZODIAZEPINE SCREEN URINE (BEAKER) (test qswn=994) Negative Negative COCAINE (METAB.) SCREEN (BEAKER) (test guwa=7079) Negative Negative METHADONE SCREEN (BEAKER) (test vtpd=1777) Negative Negative OPIATE SCREEN URINE (BEAKER) (test qdyy=040) Negative Negative CANNABINOID SCREEN URINE (BEAKER) (test ihde=403) Negative Negative AMPH/METHAMPH SCREEN (BEAKER) (test jfrj=1415) Negative Negative PHENCYCLIDINE SCREEN URINE (BEAKER) (test qrjr=986) Negative Negative OXYCODONE SCREEN URINE (BEAKER) (test luys=7661) Negative Negative DRUG CUTOFF CONC.Cocaine 300 ng/mL Cannabinoid 50 ng/mL Benzodiazepine 200 ng/mLBarbiturate 200 ng/ mLPhencyclidine 25 ng/mLOpiate 300 ng/mLMethadone 300 ng/mLAmphetamine/ 1000 ng/mL MethamphetamineOxycodone 300 ng/mLThis assay provides an unconfirmed qualitative test result for the clinical management of patients in emergency situations. Chain of custody not maintained. Some xkut-nls-dsusajw medications, as well as adulterants, may cause inaccurate results. Clinical correlation should be applied. A more comprehensive drug screen or confirmation of a detected drug may be performed upon request.URINALYSIS W/ [id number] 18:50:00* Test Item Value Reference Range Comments COLOR (BEAKER) (test pcax=976) Yellow CLARITY (BEAKER) (test fgvh=221) Clear SPECIFIC GRAVITY UA (BEAKER) (test zeby=467) 1.007 1.001-1.035 PH UA (BEAKER) (test wric=168) 6.5 5.0-8.0 PROTEIN UA (BEAKER) (test rtiu=283) Negative Negative GLUCOSE UA (BEAKER) (test rsly=117) Negative Negative KETONES UA (BEAKER) (test vhpa=501) Negative Negative BILIRUBIN UA (BEAKER) (test vgww=254) Negative Negative BLOOD UA (BEAKER) (test egon=513) Small Negative NITRITE UA (BEAKER) (test suwc=863) Negative Negative LEUKOCYTE ESTERASE UA (BEAKER) (test ydzm=902) Trace Negative UROBILINOGEN UA (BEAKER) (test hynh=444) 2.0 mg/dL 0.2-1.0 RBC UA (BEAKER) (test ygta=369) 5 /HPF WBC UA (BEAKER) (test thqn=291) 2 /HPF BACTERIA (BEAKER) (test yznc=868) Occasional SQUAMOUS EPITHELIAL (BEAKER) (test entq=025) 5 /HPF HYALINE CASTS (BEAKER) (test ksxm=508) 2 /LPF SOURCE(BEAKER) (test xmzq=0189) [id number] 18:49:00* Test Item Value Reference Range Comments ETHANOL (BEAKER) (test yqni=106) < mg/dL <=10 TROPONIN [id number] 17:45:00* Test Item Value Reference Range Comments TROPONIN I (BEAKER) (test mufx=030) 0.01 ng/mL 0.00-0.03 Effective 07/06/2014: Reference Range ChangeNew: 0.00-0.03 Previous 0.00- 0.15Troponin I (TnI) levels must be interpreted in the context of the presenting symptoms and the clinical findings. Elevated TnI levels indicate myocardial damage, but are not specific for ischemic heart disease. Elevated TnI levels are seen in patients with other cardiac conditions (including myocarditis and congestive heart failure), and slight TnI elevations occur in patients with other conditions, including sepsis, renal failure, acidosis, acute neurological disease, and persistent tachyarrhythmia.[id number] 17:38: 00* Test Item Value Reference Range Comments BLOOD UREA NITROGEN (BEAKER) (test jrzj=326) 24 mg/dL 7-21 [id number] 17:38:00* Test Item Value Reference Range Comments SODIUM (BEAKER) (test rgwe=775) 137 meq/L 136-145 POTASSIUM (BEAKER) (test soxz=728) 3.3 meq/L 3.5-5.1 CHLORIDE (BEAKER) (test eyxw=931) 107 meq/L 98-107 CO2 (BEAKER) (test kpxk=065) 22 meq/L 22-29 HEPATIC FUNCTION [id number] 17:38:00* Test Item Value Reference Range Comments TOTAL PROTEIN (BEAKER) (test yxud=847) 5.3 gm/dL 6.0-8.3 ALBUMIN (BEAKER) (test eltp=8173) 2.3 g/dL 3.5-5.0 BILIRUBIN TOTAL (BEAKER) (test vxac=186) 3.2 mg/dL 0.2-1.2 BILIRUBIN DIRECT (BEAKER) (test qhrq=384) 1.4 mg/dL 0.1-0.5 ALKALINE PHOSPHATASE (BEAKER) (test jjfv=922) 89 U/L 40-150 AST (SGOT) (BEAKER) (test tnoi=109) 32 U/L 5-34 ALT (SGPT) (BEAKER) (test snjg=969) 20 U/L 6-55 Specimen slightly [id number] 17:38:00* Test Item Value Reference Range Comments CREATININE (BEAKER) (test ivse=901) 0.84 mg/dL 0.57-1.25 EGFR (BEAKER) (test isbc=1395) 72 mL/min/1.73 sq m ESTIMATED GFR IS NOT ACCURATE CREATININE CLEARANCE IN PREDICTING GLOMERULAR FILTRATION RATE. ESTIMATED GFR IS NOT APPLICABLE FOR DIALYSIS PATIENTS. Specimen slightly [id number] 17:38:00* Test Item Value Reference Range Comments GLUCOSE RANDOM (BEAKER) (test eycb=870) 188 mg/dL 70-105 Effective 07/06/2014: Reference Range Change-Adult onlyNew: 70-105 Previous : 70-110PT/[id number] 17:36:00* Test Item Value Reference Range Comments PROTIME (BEAKER) (test dfab=524) 21.6 seconds 11.7-14.7 INR (BEAKER) (test enom=785) 1.9 <=5.9 PARTIAL THROMBOPLASTIN TIME (BEAKER) (test azgg=860) 38.2 seconds 22.5-36.0 RECOMMENDED COUMADIN/WARFARIN INR THERAPY RANGESSTANDARD DOSE: 2.0 - 3.0 Includes: PROPHYLAXIS for venous thrombosis, systemic embolization; TREATMENT for venous thrombosis and/or pulmonary embolus.HIGH RISK: Target INR is 2.5-3.5 for patients with mechanical heart valves.CBC W/PLT COUNT & AUTO [id number] 17:34:00* Test Item Value Reference Range Comments WHITE BLOOD CELL COUNT (BEAKER) (test frqa=457) 3.0 K/ L 4.0-10.0 RED BLOOD CELL COUNT (BEAKER) (test bsqx=650) 2.76 M/ L 4.00-5.00 HEMOGLOBIN (BEAKER) (test glax=393) 9.9 GM/DL 12.0-15.0 HEMATOCRIT (BEAKER) (test durj=246) 30.7 % 36.0-45.0 MEAN CORPUSCULAR VOLUME (BEAKER) (test wicj=793) 111.0 fL 82.0-99.0 MEAN CORPUSCULAR HEMOGLOBIN (BEAKER) (test wgld=587) 36.0 pg 27.0-33.0 MEAN CORPUSCULAR HEMOGLOBIN CONC (BEAKER) (test ueko=189) 32.4 GM/DL 32.0- 36.0 RED CELL DISTRIBUTION WIDTH (BEAKER) (test uhvg=546) 15.3 % 10.3-14.2 PLATELET COUNT (BEAKER) (test yfvc=653) 33 K/CU MM 150-430 MEAN PLATELET VOLUME (BEAKER) (test mmnw=735) 9.5 fL 6.5-10.5 NUCLEATED RED BLOOD CELLS (BEAKER) (test yqdc=531) 0 /100 WBC 0-0 NEUTROPHILS RELATIVE PERCENT (BEAKER) (test mjvx=816) 76 % LYMPHOCYTES RELATIVE PERCENT (BEAKER) (test ohwm=973) 18 % MONOCYTES RELATIVE PERCENT (BEAKER) (test wtpq=331) 5 % EOSINOPHILS RELATIVE PERCENT (BEAKER) (test wprw=817) 1 % BASOPHILS RELATIVE PERCENT (BEAKER) (test viea=463) 0 % NEUTROPHILS ABSOLUTE COUNT (BEAKER) (test rqwm=984) 2.27 K/ L 1.80-8.00 LYMPHOCYTES ABSOLUTE COUNT (BEAKER) (test xrqz=794) 0.52 K/ L 1.48-4.50 MONOCYTES ABSOLUTE COUNT (BEAKER) (test vdyd=949) 0.13 K/ L 0.00-1.30 EOSINOPHILS ABSOLUTE COUNT (BEAKER) (test olyy=565) 0.04 K/ L 0.00-0.50 BASOPHILS ABSOLUTE COUNT (BEAKER) (test rgwt=250) 0.01 K/ L 0.00-0.20 [id number] 17:30:00* Test Item Value Reference Range Comments AMMONIA (BEAKER) (test pyyr=105) 98 mol/L 18-72 CRYPTOCOCCAL [id number] 13:06:00* Test Item Value Reference Range Comments CRYPTOCOCCAL ANTIGEN, SERUM (BEAKER) (test hcie=3492) Negative Negative, Interference [id number] 10:02:00* Test Item Value Reference Range Comments ETHANOL (BEAKER) (test ibcm=154) < mg/dL <=10 COMPREHENSIVE METABOLIC [id number] 09:58:00* Test Item Value Reference Range Comments TOTAL PROTEIN (BEAKER) (test heqf=454) 5.5 gm/dL 6.0-8.3 Specimen slightly hemolyzed ALBUMIN (BEAKER) (test ojvd=4300) 2.5 g/dL 3.5-5.0 Specimen slightly hemolyzed ALKALINE PHOSPHATASE (BEAKER) (test cpkl=768) 61 U/L 40-150 BILIRUBIN TOTAL (BEAKER) (test jvck=140) 3.5 mg/dL 0.2-1.2 Specimen slightly hemolyzed SODIUM (BEAKER) (test nyfq=530) 137 meq/L 136-145 POTASSIUM (BEAKER) (test xrwg=897) 4.2 meq/L 3.5-5.1 Specimen slightly hemolyzed CHLORIDE (BEAKER) (test lbbj=109) 112 meq/L 98-107 CO2 (BEAKER) (test lyng=423) 17 meq/L 22-29 BLOOD UREA NITROGEN (BEAKER) (test kmzq=431) 28 mg/dL 7-21 CREATININE (BEAKER) (test ojhy=456) 0.81 mg/dL 0.57-1.25 Specimen slightly hemolyzed GLUCOSE RANDOM (BEAKER) (test ctfz=497) 58 mg/dL 70-105 CALCIUM (BEAKER) (test dzlt=843) 8.0 mg/dL 8.4-10.2 AST (SGOT) (BEAKER) (test eynl=123) 35 U/L 5-34 Specimen slightly hemolyzed ALT (SGPT) (BEAKER) (test zmvd=698) 13 U/L 6-55 Specimen slightly hemolyzed EGFR (BEAKER) (test mkmd=5786) 75 mL/min/1.73 sq m ESTIMATED GFR IS NOT ACCURATE CREATININE CLEARANCE IN PREDICTING GLOMERULAR FILTRATION RATE. ESTIMATED GFR IS NOT APPLICABLE FOR DIALYSIS PATIENTS. Specimen slightly ictericBILIRUBIN, [id number] 09:58:00* Test Item Value Reference Range Comments BILIRUBIN DIRECT (BEAKER) (test zntk=964) 1.6 mg/dL 0.1-0.5 Specimen slightly hemolyzed PROTHROMBIN TIME/[id number] 09:43:00* Test Item Value Reference Range Comments PROTIME (BEAKER) (test egxt=068) 23.3 seconds 11.7-14.7 INR (BEAKER) (test bwpm=033) 2.1 <=5.9 RECOMMENDED COUMADIN/WARFARIN INR THERAPY RANGESSTANDARD DOSE: 2.0 - 3.0 Includes: PROPHYLAXIS for venous thrombosis, systemic embolization; TREATMENT for venous thrombosis and/or pulmonary embolus.HIGH RISK: Target INR is 2.5-3.5 for patients with mechanical heart valves.CBC W/PLT COUNT & AUTO [id number] 09:41:00* Test Item Value Reference Range Comments WHITE BLOOD CELL COUNT (BEAKER) (test igry=192) 3.6 K/ L 4.0-10.0 RED BLOOD CELL COUNT (BEAKER) (test jkmp=933) 2.67 M/ L 4.00-5.00 HEMOGLOBIN (BEAKER) (test vktg=204) 9.7 GM/DL 12.0-15.0 HEMATOCRIT (BEAKER) (test khvu=727) 29.7 % 36.0-45.0 MEAN CORPUSCULAR VOLUME (BEAKER) (test gdoh=412) 111.0 fL 82.0-99.0 MEAN CORPUSCULAR HEMOGLOBIN (BEAKER) (test hyqw=981) 36.3 pg 27.0-33.0 MEAN CORPUSCULAR HEMOGLOBIN CONC (BEAKER) (test npxe=660) 32.7 GM/DL 32.0- 36.0 RED CELL DISTRIBUTION WIDTH (BEAKER) (test sbzo=304) 16.0 % 10.3-14.2 PLATELET COUNT (BEAKER) (test bbhh=306) 43 K/CU MM 150-430 MEAN PLATELET VOLUME (BEAKER) (test bxdk=929) 5.2 fL 6.5-10.5 NUCLEATED RED BLOOD CELLS (BEAKER) (test bdid=015) 0 /100 WBC 0-0 NEUTROPHILS RELATIVE PERCENT (BEAKER) (test tzht=180) 75 % LYMPHOCYTES RELATIVE PERCENT (BEAKER) (test izwv=681) 17 % MONOCYTES RELATIVE PERCENT (BEAKER) (test imfz=399) 7 % EOSINOPHILS RELATIVE PERCENT (BEAKER) (test fonx=609) 1 % BASOPHILS RELATIVE PERCENT (BEAKER) (test pmjx=099) 0 % NEUTROPHILS ABSOLUTE COUNT (BEAKER) (test fkdp=013) 2.72 K/ L 1.80-8.00 LYMPHOCYTES ABSOLUTE COUNT (BEAKER) (test kumx=090) 0.61 K/ L 1.48-4.50 MONOCYTES ABSOLUTE COUNT (BEAKER) (test apca=887) 0.25 K/ L 0.00-1.30 EOSINOPHILS ABSOLUTE COUNT (BEAKER) (test tbvh=803) 0.05 K/ L 0.00-0.50 BASOPHILS ABSOLUTE COUNT (BEAKER) (test pgxu=575) 0.02 K/ L 0.00-0.20 0.00BODY FLUID CELL COUNT WITH [id number] 16:19:00* Test Item Value Reference Range Comments APPEARANCE FLUID (BEAKER) (test injn=197) Cloudy Clear COLOR FLUID (BEAKER) (test ckdz=698) Yellow Colorless, Straw RBC FLUID (BEAKER) (test oxvm=417) 3309 /cu mm <=1 ADJUSTED WBC FLUID (BEAKER) (test nqug=9868) 21 /cu mm <=5 LINING CELLS (BEAKER) (test qesb=8531) 0 /cu mm <=1 NEUTROPHILS FLUID (BEAKER) (test whaz=2528) 0 % LYMPHS FLUID (BEAKER) (test rgol=491) 58 % MONO/MACROPHAGE FLUID (BEAKER) (test jrhn=983) 42 % EOSINOPHILS FLUID (BEAKER) (test cxpy=460) 0 % BASO FLUID (BEAKER) (test wufv=155) 0 % CONTAINER BODY FLUID (BEAKER) (test xrho=1350) EDTA Tube [id number] 13:46:00* Test Item Value Reference Range Comments PARTIAL THROMBOPLASTIN TIME (BEAKER) (test vfka=332) 38.7 seconds 22.5-36.0 PROTHROMBIN TIME/[id number] 13:45:00* Test Item Value Reference Range Comments PROTIME (BEAKER) (test zozq=478) 25.5 seconds 11.7-14.7 INR (BEAKER) (test lzfb=594) 2.3 <=5.9 RECOMMENDED COUMADIN/WARFARIN INR THERAPY RANGESSTANDARD DOSE: 2.0 - 3.0 Includes: PROPHYLAXIS for venous thrombosis, systemic embolization; TREATMENT for venous thrombosis and/or pulmonary embolus.HIGH RISK: Target INR is 2.5-3.5 for patients with mechanical heart valves.PLATELET [id number] 13:23:00* Test Item Value Reference Range Comments PLATELET COUNT (BEAKER) (test ubiq=332) 37 K/CU MM 150-430 BLOOD [id number] 14:11:00* Test Item Value Reference Range Comments CULTURE (BEAKER) (test ocre=3217) No growth in 5 days BLOOD [id number] 14:11:00* Test Item Value Reference Range Comments CULTURE (BEAKER) (test ozwx=0341) No growth in 5 days POCT-GLUCOSE [id number] 17:19:00* Test Item Value Reference Range Comments POC-GLUCOSE METER (BEAKER) (test knvu=2840) 265 mg/dL 70-110 TESTED AT [facility] [address] [facility] [address] CLOSTRIDIUM DIFFICILE TOXIN [id number] 16:00:00* Test Item Value Reference Range Comments CLOSTRIDIUM DIFFICILE TOXIN, PCR (BEAKER) (test grxy=5021) Detected Not Detected This qualitative real-time polymerase chain reaction assay detects the tcdB gene , encoded on the C.difficile pathogenicity locus (PaLoc). The product of tcdB, toxin B, is a cytotoxin essential for causing C.difficile-associated disease ( CDAD) and is found in virtually all toxigenic C.difficile.This assay is performed for patients suspected of having either community-acquired or nosocomial CDAD. Accordingly, only symptomatic patients should be tested and formed stools will be rejected unless ileus is present (i.e., specified when ordering). Patients may be colonized with toxigenic C.difficile strains not causing active disease; therefore, clinical correlation is needed when deciding how to manage patients with a positive test result.The assay has not been validated as a test of cure as amplifiable nucleic acid may persist after effective treatment; therefore, follow-up testing of a positive result is not recommended.ANTI-NUCLEAR ANTIBODY (SKYE)2017-01-02 14:57:00* Test Item Value Reference Range Comments ANTI-NUCLEAR ANTIBODY (SKYE) (BEAKER) (test yqbf=757) Negative Negative POCT-GLUCOSE [id number] 14:49:00* Test Item Value Reference Range Comments POC-GLUCOSE METER (BEAKER) (test cerx=5454) 250 mg/dL 70-110 TESTED AT [place] [id number] [facility] [address] CBC W/PLT COUNT & AUTO [id number] 13:25:00* Test Item Value Reference Range Comments WHITE BLOOD CELL COUNT (BEAKER) (test yphw=561) 2.5 K/ L 4.0-10.0 RED BLOOD CELL COUNT (BEAKER) (test woby=829) 2.33 M/ L 4.00-5.00 HEMOGLOBIN (BEAKER) (test txgd=708) 8.2 GM/DL 12.0-15.0 HEMATOCRIT (BEAKER) (test wbae=482) 25.3 % 36.0-45.0 MEAN CORPUSCULAR VOLUME (BEAKER) (test cntv=872) 108.0 fL 82.0-99.0 MEAN CORPUSCULAR HEMOGLOBIN (BEAKER) (test mrxf=570) 35.0 pg 27.0-33.0 MEAN CORPUSCULAR HEMOGLOBIN CONC (BEAKER) (test xvhw=599) 32.3 GM/DL 32.0- 36.0 RED CELL DISTRIBUTION WIDTH (BEAKER) (test frgz=628) 15.9 % 10.3-14.2 PLATELET COUNT (BEAKER) (test mlng=650) 22 K/CU MM 150-430 MEAN PLATELET VOLUME (BEAKER) (test kvjt=108) 9.9 fL 6.5-10.5 NUCLEATED RED BLOOD CELLS (BEAKER) (test gttb=250) 0 /100 WBC 0-0 NEUTROPHILS RELATIVE PERCENT (BEAKER) (test zyti=384) 73 % LYMPHOCYTES RELATIVE PERCENT (BEAKER) (test gykv=600) 16 % MONOCYTES RELATIVE PERCENT (BEAKER) (test cuhu=151) 8 % EOSINOPHILS RELATIVE PERCENT (BEAKER) (test vrji=439) 2 % BASOPHILS RELATIVE PERCENT (BEAKER) (test hdgp=583) 0 % NEUTROPHILS ABSOLUTE COUNT (BEAKER) (test igxv=117) 1.82 K/ L 1.80-8.00 LYMPHOCYTES ABSOLUTE COUNT (BEAKER) (test sdcf=012) 0.41 K/ L 1.48-4.50 MONOCYTES ABSOLUTE COUNT (BEAKER) (test vklp=686) 0.21 K/ L 0.00-1.30 EOSINOPHILS ABSOLUTE COUNT (BEAKER) (test nenr=067) 0.06 K/ L 0.00-0.50 BASOPHILS ABSOLUTE COUNT (BEAKER) (test gokb=819) 0.01 K/ L 0.00-0.20 0.00(MANUAL DIFFERENTIAL)2017-01-02 13:25:00* Test Item Value Reference Range Comments TOTAL COUNTED (BEAKER) (test eypn=6029) WBC MORPHOLOGY (BEAKER) (test owio=104) Normal PLT MORPHOLOGY (BEAKER) (test dmfp=137) Normal RBC MORPHOLOGY (BEAKER) (test qeck=128) Normal BODY FLUID CULTURE + GRAM [id number] 11:38:00* Test Item Value Reference Range Comments CULTURE (BEAKER) (test irqx=0908) No growth GRAM STAIN RESULT (BEAKER) (test inyl=3966) 1+ WBCs GRAM STAIN RESULT (BEAKER) (test sbjs=76028) No organisms seen POCT-GLUCOSE [id number] 11:06:00* Test Item Value Reference Range Comments POC-GLUCOSE METER (BEAKER) (test cvan=9085) 98 mg/dL 70-110 TESTED AT [facility] [address] [facility] [address] POCT-GLUCOSE [id number] 08:01:00* Test Item Value Reference Range Comments POC-GLUCOSE METER (BEAKER) (test spof=1227) 85 mg/dL 70-110 TESTED AT [facility] [address] [facility] [address] BASIC METABOLIC [id number] 05:00:00* Test Item Value Reference Range Comments SODIUM (BEAKER) (test oubk=271) 132 meq/L 136-145 POTASSIUM (BEAKER) (test nnyj=220) 4.0 meq/L 3.5-5.1 CHLORIDE (BEAKER) (test pond=957) 104 meq/L 98-107 CO2 (BEAKER) (test exxq=695) 22 meq/L 22-29 BLOOD UREA NITROGEN (BEAKER) (test veel=437) 40 mg/dL 7-21 CREATININE (BEAKER) (test okwe=922) 1.18 mg/dL 0.57-1.25 GLUCOSE RANDOM (BEAKER) (test yjgq=323) 143 mg/dL 70-105 CALCIUM (BEAKER) (test gnej=424) 7.9 mg/dL 8.4-10.2 EGFR (BEAKER) (test hirw=9571) 48 mL/min/1.73 sq m ESTIMATED GFR IS NOT ACCURATE CREATININE CLEARANCE IN PREDICTING GLOMERULAR FILTRATION RATE. ESTIMATED GFR IS NOT APPLICABLE FOR DIALYSIS PATIENTS. Specimen slightly ictericDIGOXIN [id number] 04:57:00* Test Item Value Reference Range Comments DIGOXIN LEVEL (BEAKER) (test lsjd=568) 1.0 ng/mL 0.8-2.0 [id number] 04:54:00* Test Item Value Reference Range Comments PHOSPHORUS (BEAKER) (test afzr=061) 2.8 mg/dL 2.3-4.7 [id number] 04:54:00* Test Item Value Reference Range Comments MAGNESIUM (BEAKER) (test uauo=754) 2.3 mg/dL 1.6-2.6 HEPATIC FUNCTION [id number] 04:54:00* Test Item Value Reference Range Comments TOTAL PROTEIN (BEAKER) (test awyx=223) 5.2 gm/dL 6.0-8.3 ALBUMIN (BEAKER) (test weom=9201) 2.6 g/dL 3.5-5.0 BILIRUBIN TOTAL (BEAKER) (test juzt=513) 2.7 mg/dL 0.2-1.2 BILIRUBIN DIRECT (BEAKER) (test rukc=569) 1.3 mg/dL 0.1-0.5 ALKALINE PHOSPHATASE (BEAKER) (test pkiz=850) 74 U/L 40-150 AST (SGOT) (BEAKER) (test dkpg=822) 21 U/L 5-34 ALT (SGPT) (BEAKER) (test fkdl=245) 12 U/L 6-55 Specimen slightly ictericCALCIUM, [id number] 04:35:00* Test Item Value Reference Range Comments CALCIUM IONIZED (BEAKER) (test zcwx=981) 1.06 mmol/L 1.12-1.27 PH, BLOOD (BEAKER) (test xxnb=7445) 7.47 POCT-GLUCOSE [id number] 21:31:00* Test Item Value Reference Range Comments POC-GLUCOSE METER (JEANNEAKER) (test dcsu=8664) 291 mg/dL 70-110 TESTED AT [address] [address] POCT-GLUCOSE [id number] 17:21:00* Test Item Value Reference Range Comments POC-GLUCOSE METER (ROVERTO) (test eyjv=9938) 246 mg/dL 70-110 TESTED AT [address] [address] EBV-VCA ANTIBODY, [id number] 14:26:00* Test Item Value Reference Range Comments KAYLA-NELSON VCA IGM (BEAKER) (test nbva=006) Negative CYTOMEGALOVIRUS ANTIBODY, [id number] 14:25:00* Test Item Value Reference Range Comments CYTOMEGALOVIRUS IGG ANTIBODY (BEAKER) (test kjxo=051) Positive CYTOMEGALOVIRUS ANTIBODY, [id number] 14:25:00* Test Item Value Reference Range Comments CYTOMEGALOVIRUS IGM ANTIBODY (BEAKER) (test enfs=006) Negative EBV-VCA ANTIBODY, [id number] 14:25:00* Test Item Value Reference Range Comments KAYLA-NELSON VCA IGG (BEAKER) (test gvyg=840) Positive [id number] 13:05:00* Test Item Value Reference Range Comments RPR SCREEN (BEAKER) (test tkhe=389) Nonreactive Nonreactive POCT-GLUCOSE [id number] 12:16:00* Test Item Value Reference Range Comments POC-GLUCOSE METER (ROVERTO) (test zdpl=2241) 262 mg/dL 70-110 TESTED AT [facility] [address] [facility] [address] CBC W/PLT COUNT & AUTO [id number] 11:35:00* Test Item Value Reference Range Comments WHITE BLOOD CELL COUNT (BEAKER) (test qzne=006) 2.7 K/ L 4.0-10.0 RED BLOOD CELL COUNT (BEAKER) (test cvyz=543) 2.49 M/ L 4.00-5.00 HEMOGLOBIN (BEAKER) (test avgx=719) 8.7 GM/DL 12.0-15.0 HEMATOCRIT (BEAKER) (test imqm=930) 27.1 % 36.0-45.0 MEAN CORPUSCULAR VOLUME (BEAKER) (test kanl=524) 109.0 fL 82.0-99.0 MEAN CORPUSCULAR HEMOGLOBIN (BEAKER) (test txev=727) 35.1 pg 27.0-33.0 MEAN CORPUSCULAR HEMOGLOBIN CONC (BEAKER) (test modj=752) 32.3 GM/DL 32.0- 36.0 RED CELL DISTRIBUTION WIDTH (BEAKER) (test ouow=662) 16.1 % 10.3-14.2 PLATELET COUNT (BEAKER) (test xpvp=720) 26 K/CU MM 150-430 MEAN PLATELET VOLUME (BEAKER) (test pwmz=541) 10.0 fL 6.5-10.5 NUCLEATED RED BLOOD CELLS (BEAKER) (test gplr=268) 0 /100 WBC 0-0 (MANUAL DIFFERENTIAL)2017-01-01 11:35:00* Test Item Value Reference Range Comments NEUTROPHILS - REL (DIFF) (BEAKER) (test nitk=9036) 70 % LYMPHOCYTES - REL (DIFF) (BEAKER) (test rikm=2060) 18 % MONOCYTES - REL (DIFF) (BEAKER) (test wprl=5868) 4 % EOSINOPHILS - REL (DIFF) (BEAKER) (test jlso=4274) 3 % BANDS - REL (DIFF) (BEAKER) (test gtuk=9529) 5 % 0-10 NEUTROPHILS - ABS (DIFF) (BEAKER) (test iilm=3928) 1.89 K/ L 1.80-8.00 LYMPHOCYTES - ABS (DIFF) (BEAKER) (test sbxz=1508) 0.49 K/ L 1.48-4.50 MONOCYTES - ABS (DIFF) (BEAKER) (test gmqk=2242) 0.11 K/ L 0.00-1.30 EOSINOPHILS - ABS (DIFF) (BEAKER) (test prdk=7138) 0.08 K/ L 0.00-0.50 BANDS-ABS (DIFF) (BEAKER) (test voss=1382) 0.1 K/ L 0.0-0.8 TOTAL COUNTED (BEAKER) (test hypj=5018) 100 BANDS + SEGMENTED NEUTROPHILS (BEAKER) (test ztvb=4823) 2.03 WBC MORPHOLOGY (BEAKER) (test qvrj=989) Normal PLT MORPHOLOGY (BEAKER) (test vled=722) Normal RBC MORPHOLOGY (BEAKER) (test wbhn=387) Normal RETICULOCYTE [id number] 08:26:00* Test Item Value Reference Range Comments RETICULOCYTE COUNT PCT (BEAKER) (test kqdx=534) 6.4 % 0.4-2.9 HEMOGLOBIN [id number] 08:09:00* Test Item Value Reference Range Comments HEMOGLOBIN A1C (BEAKER) (test tiar=065) 4.7 % 4.3-6.1 VITAMIN D, [id number] 07:59:00* Test Item Value Reference Range Comments VITAMIN D 25-OH (BEAKER) (test chkx=8592) 15.8 ng/mL 13.0-47.8 POCT-GLUCOSE [id number] 07:49:00* Test Item Value Reference Range Comments POC-GLUCOSE METER (BEAKER) (test nnom=3377) 268 mg/dL 70-110 TESTED AT [address] [address] BASIC METABOLIC [id number] 06:51:00* Test Item Value Reference Range Comments SODIUM (BEAKER) (test vuza=760) 132 meq/L 136-145 POTASSIUM (BEAKER) (test njcr=133) 4.3 meq/L 3.5-5.1 CHLORIDE (BEAKER) (test gngn=450) 105 meq/L 98-107 CO2 (BEAKER) (test awxe=339) 21 meq/L 22-29 BLOOD UREA NITROGEN (BEAKER) (test wzvk=361) 40 mg/dL 7-21 CREATININE (BEAKER) (test hyba=280) 1.44 mg/dL 0.57-1.25 GLUCOSE RANDOM (BEAKER) (test nbks=614) 248 mg/dL 70-105 CALCIUM (BEAKER) (test zpxt=813) 7.5 mg/dL 8.4-10.2 EGFR (BEAKER) (test ujnu=7289) 39 mL/min/1.73 sq m ESTIMATED GFR IS NOT ACCURATE CREATININE CLEARANCE IN PREDICTING GLOMERULAR FILTRATION RATE. ESTIMATED GFR IS NOT APPLICABLE FOR DIALYSIS PATIENTS. Specimen slightly [id number] 06:49:00* Test Item Value Reference Range Comments PHOSPHORUS (BEAKER) (test yrcj=497) 2.8 mg/dL 2.3-4.7 [id number] 06:49:00* Test Item Value Reference Range Comments MAGNESIUM (BEAKER) (test madf=563) 2.2 mg/dL 1.6-2.6 HEPATIC FUNCTION [id number] 06:49:00* Test Item Value Reference Range Comments TOTAL PROTEIN (BEAKER) (test pcqs=717) 5.0 gm/dL 6.0-8.3 ALBUMIN (BEAKER) (test ohqt=6980) 2.3 g/dL 3.5-5.0 BILIRUBIN TOTAL (BEAKER) (test jkev=442) 2.6 mg/dL 0.2-1.2 BILIRUBIN DIRECT (BEAKER) (test bhca=128) 1.4 mg/dL 0.1-0.5 ALKALINE PHOSPHATASE (BEAKER) (test sdra=439) 73 U/L 40-150 AST (SGOT) (BEAKER) (test bipm=085) 20 U/L 5-34 ALT (SGPT) (BEAKER) (test txtn=428) 11 U/L 6-55 Specimen slightly ictericCALCIUM, [id number] 06:44:00* Test Item Value Reference Range Comments CALCIUM IONIZED (BEAKER) (test ndkc=785) 0.99 mmol/L 1.12-1.27 PH, BLOOD (BEAKER) (test oihu=9222) 7.49 HEPATITIS B SURFACE [id number] 02:26:00* Test Item Value Reference Range Comments HEPATITIS B SURFACE ANTIBODY (BEAKER) (test xrwi=450) 683.2 mIU/mL <8.0 HEPATITIS B CORE ANTIBODY, [id number] 02:25:00* Test Item Value Reference Range Comments HEPATITIS B CORE IGM ANTIBODY (BEAKER) (test fnzd=616) Nonreactive Nonreactive ALPHA FETOPROTEIN (AFP), TUMOR [id number] 01:47:00* Test Item Value Reference Range Comments ALPHA-FETOPROTEIN (BEAKER) (test bqfr=8030) < ng/mL <10.0 Effective 07/06/2014: Reference Range ChangeNew: <10.0 Previous: 0.0-8.3X36452 01:37:00* Test Item Value Reference Range Comments T4 TOTAL (BEAKER) (test quhq=993) 5.4 ug/dL 4.9-11.7 [id number] 01:37:00* Test Item Value Reference Range Comments THYROID STIMULATING HORMONE (BEAKER) (test naei=264) 3.18 uIU/mL 0.35-4.94 [id number] 01:37:00* Test Item Value Reference Range Comments T3 TOTAL (BEAKER) (test ywql=881) 57 ng/dL 48-159 Effective 07/06/2014: Reference Range ChangeNew: 48-159 Previous: 60- 181CARCINOEMBRYONIC ANTIGEN (CEA)2017-01-01 01:37:00* Test Item Value Reference Range Comments CARCINOEMBRYONIC ANTIGEN (BEAKER) (test jqno=079) 4.3 ng/mL 0.0-5.0 URIC [id number] 01:15:00* Test Item Value Reference Range Comments URIC ACID (BEAKER) (test powb=798) 9.9 mg/dL 2.6-7.2 Specimen slightly [id number] 01:15:00* Test Item Value Reference Range Comments PREALBUMIN (BEAKER) (test pact=849) 6 mg/dL 14-45 [id number] 01:15:00* Test Item Value Reference Range Comments TRANSFERRIN (BEAKER) (test wbdc=480) 146 mg/dL 174-382 Specimen slightly ictericLIPID [id number] 01:14:00* Test Item Value Reference Range Comments TRIGLYCERIDES (BEAKER) (test hwro=864) 45 mg/dL CHOLESTEROL (BEAKER) (test pyei=682) 62 mg/dL HDL CHOLESTEROL (BEAKER) (test zurc=601) 25 mg/dL LDL CHOLESTEROL CALCULATED (BEAKER) (test wump=605) 28 mg/dL Triglyceride Reference Range: Low Risk <150 Borderline 150-199 High Risk 200-499 Very High Risk >=500Cholesterol Reference Range: Low Risk <200 Borderline 200-239 High Risk >240HDL Cholesterol Reference Range: Low Risk >=60 High Risk <40LDL Cholesterol Reference Range: Optimal <100 Near Optimal 100-129 Borderline 130-159 High 160-189 Very High >=190 Specimen slightly ictericGAMMA GLUTAMYL TRANSFERASE (GGT)2017-01-01 01:14:00* Test Item Value Reference Range Comments GAMMA GLUTAMYL TRANSFERASE (BEAKER) (test ggwq=156) 25 U/L 9-64 Specimen slightly [id number] 01:12:00* Test Item Value Reference Range Comments ETHANOL (BEAKER) (test xynh=245) < mg/dL <=10 [id number] 01:09:00* Test Item Value Reference Range Comments FIBRINOGEN LEVEL (BEAKER) (test kpxi=219) 196 mg/dl 225-434 BLOOD GAS, [id number] 22:51:00* Test Item Value Reference Range Comments PH ARTERIAL (BEAKER) (test otjh=005) 7.52 7.35-7.45 PCO2 ARTERIAL (BEAKER) (test amew=105) 26 mmHg 35-45 PO2 ARTERIAL (BEAKER) (test xgzh=787) 56 mmHg 80-90 O2 SATURATION ARTERIAL (BEAKER) (test hryl=960) 92.7 % 96.0-97.0 HCO3 ARTERIAL (BEAKER) (test bblo=486) 21 mmol/L 21-29 BASE EXCESS ARTERIAL (BEAKER) (test oevo=476) -1.0 mmol/L -2.0-3.0 PATIENT TEMPERATURE (BEAKER) (test mbhw=7334) 37.0 C FIO2 (BEAKER) (test nhur=1996) 21.0 % POCT-GLUCOSE [id number] 21:29:00* Test Item Value Reference Range Comments POC-GLUCOSE METER (BEAKER) (test vzow=4648) 204 mg/dL 70-110 TESTED AT [facility] [address] [facility] [address] POCT-GLUCOSE [id number] 17:27:00* Test Item Value Reference Range Comments POC-GLUCOSE METER (BEAKER) (test vvkn=5341) 159 mg/dL 70-110 TESTED AT [facility] [address] [facility] [address] CBC W/PLT COUNT & AUTO [id number] 13:00:00* Test Item Value Reference Range Comments WHITE BLOOD CELL COUNT (BEAKER) (test wwep=100) 5.5 K/ L 4.0-10.0 RED BLOOD CELL COUNT (BEAKER) (test hxxa=263) 2.76 M/ L 4.00-5.00 HEMOGLOBIN (BEAKER) (test nqdi=086) 9.7 GM/DL 12.0-15.0 HEMATOCRIT (BEAKER) (test inkx=410) 30.8 % 36.0-45.0 MEAN CORPUSCULAR VOLUME (BEAKER) (test rqer=888) 112.0 fL 82.0-99.0 MEAN CORPUSCULAR HEMOGLOBIN (BEAKER) (test ezts=339) 35.2 pg 27.0-33.0 MEAN CORPUSCULAR HEMOGLOBIN CONC (BEAKER) (test jleu=562) 31.6 GM/DL 32.0- 36.0 RED CELL DISTRIBUTION WIDTH (BEAKER) (test qauq=507) 16.3 % 10.3-14.2 PLATELET COUNT (BEAKER) (test yjmv=583) 33 K/CU MM 150-430 MEAN PLATELET VOLUME (BEAKER) (test xhvw=698) 9.6 fL 6.5-10.5 NUCLEATED RED BLOOD CELLS (BEAKER) (test nazr=787) 0 /100 WBC 0-0 NEUTROPHILS RELATIVE PERCENT (BEAKER) (test wgfh=429) 80 % LYMPHOCYTES RELATIVE PERCENT (BEAKER) (test lcln=547) 13 % MONOCYTES RELATIVE PERCENT (BEAKER) (test mrhz=517) 6 % EOSINOPHILS RELATIVE PERCENT (BEAKER) (test ejtu=453) 1 % BASOPHILS RELATIVE PERCENT (BEAKER) (test yfpr=547) 0 % NEUTROPHILS ABSOLUTE COUNT (BEAKER) (test zdwp=358) 4.39 K/ L 1.80-8.00 LYMPHOCYTES ABSOLUTE COUNT (BEAKER) (test tfwo=839) 0.74 K/ L 1.48-4.50 MONOCYTES ABSOLUTE COUNT (BEAKER) (test hzux=059) 0.33 K/ L 0.00-1.30 EOSINOPHILS ABSOLUTE COUNT (BEAKER) (test pega=516) 0.03 K/ L 0.00-0.50 BASOPHILS ABSOLUTE COUNT (BEAKER) (test ywdi=766) 0.03 K/ L 0.00-0.20 0.000.770.000.000.000.00(MANUAL DIFFERENTIAL)2016-12-31 13:00:00* Test Item Value Reference Range Comments TOTAL COUNTED (BEAKER) (test pljn=1164) WBC MORPHOLOGY (BEAKER) (test eqdn=297) Normal PLT MORPHOLOGY (BEAKER) (test bezp=427) Normal ELLIPTOCYTES (BEAKER) (test doav=764) 1+ few MACROCYTES (BEAKER) (test apnj=605) 2+ moderate POLYCHROMATOPHILLIC RBCS(BEAKER) (test kfkv=982) 1+ few POCT-GLUCOSE [id number] 12:01:00* Test Item Value Reference Range Comments POC-GLUCOSE METER (BEAKER) (test byxo=9500) 113 mg/dL 70-110 TESTED AT [place] [id number] POCT-GLUCOSE [id number] 08:20:00* Test Item Value Reference Range Comments POC-GLUCOSE METER (BEAKER) (test pypf=8318) 90 mg/dL 70-110 TESTED AT [address] [address] POCT-GLUCOSE [id number] 08:20:00* Test Item Value Reference Range Comments POC-GLUCOSE METER (BEAKER) (test ywoe=5307) 41 mg/dL 70-110 TESTED AT [address] [address] COMPREHENSIVE METABOLIC [id number] 07:31:00* Test Item Value Reference Range Comments TOTAL PROTEIN (BEAKER) (test otxf=725) 5.4 gm/dL 6.0-8.3 ALBUMIN (BEAKER) (test ohnx=6015) 2.2 g/dL 3.5-5.0 ALKALINE PHOSPHATASE (BEAKER) (test oryq=242) 77 U/L 40-150 BILIRUBIN TOTAL (BEAKER) (test bmmd=629) 2.8 mg/dL 0.2-1.2 SODIUM (BEAKER) (test xslu=244) 135 meq/L 136-145 POTASSIUM (BEAKER) (test kxnu=277) 4.3 meq/L 3.5-5.1 CHLORIDE (BEAKER) (test rnhf=642) 105 meq/L 98-107 CO2 (BEAKER) (test cyzo=547) 19 meq/L 22-29 BLOOD UREA NITROGEN (BEAKER) (test prkg=917) 40 mg/dL 7-21 CREATININE (BEAKER) (test glyo=630) 1.51 mg/dL 0.57-1.25 GLUCOSE RANDOM (BEAKER) (test ocem=697) 18 mg/dL 70-105 CALCIUM (BEAKER) (test vwxn=892) 7.8 mg/dL 8.4-10.2 AST (SGOT) (BEAKER) (test dqtk=988) 28 U/L 5-34 ALT (SGPT) (BEAKER) (test itqg=192) 14 U/L 6-55 EGFR (BEAKER) (test upwd=7083) 36 mL/min/1.73 sq m ESTIMATED GFR IS NOT ACCURATE CREATININE CLEARANCE IN PREDICTING GLOMERULAR FILTRATION RATE. ESTIMATED GFR IS NOT APPLICABLE FOR DIALYSIS PATIENTS. Specimen slightly ictericPT/[id number] 07:14:00* Test Item Value Reference Range Comments PROTIME (BEAKER) (test rvxp=089) 20.1 seconds 11.7-14.7 INR (BEAKER) (test zifc=202) 1.7 <=5.9 PARTIAL THROMBOPLASTIN TIME (BEAKER) (test neog=657) 43.6 seconds 22.5-36.0 RECOMMENDED COUMADIN/WARFARIN INR THERAPY RANGESSTANDARD DOSE: 2.0 - 3.0 Includes: PROPHYLAXIS for venous thrombosis, systemic embolization; TREATMENT for venous thrombosis and/or pulmonary embolus.HIGH RISK: Target INR is 2.5-3.5 for patients with mechanical heart valves.PROTHROMBIN TIME/[id number] 07:13: 00* Test Item Value Reference Range Comments PROTIME (BEAKER) (test pizo=070) 20.1 seconds 11.7-14.7 INR (BEAKER) (test obuu=340) 1.7 <=5.9 RECOMMENDED COUMADIN/WARFARIN INR THERAPY RANGESSTANDARD DOSE: 2.0 - 3.0 Includes: PROPHYLAXIS for venous thrombosis, systemic embolization; TREATMENT for venous thrombosis and/or pulmonary embolus.HIGH RISK: Target INR is 2.5-3.5 for patients with mechanical heart valves.BASIC METABOLIC [id number] 06:34: 00* Test Item Value Reference Range Comments SODIUM (BEAKER) (test mybk=503) 132 meq/L 136-145 POTASSIUM (BEAKER) (test fcrr=505) 3.9 meq/L 3.5-5.1 CHLORIDE (BEAKER) (test auhp=717) 106 meq/L 98-107 CO2 (BEAKER) (test gmxs=274) 20 meq/L 22-29 BLOOD UREA NITROGEN (BEAKER) (test hrjv=966) 36 mg/dL 7-21 CREATININE (BEAKER) (test cbyk=792) 1.26 mg/dL 0.57-1.25 GLUCOSE RANDOM (BEAKER) (test hegp=506) 93 mg/dL 70-105 CALCIUM (BEAKER) (test tcpi=496) 7.9 mg/dL 8.4-10.2 EGFR (BEAKER) (test yxfw=4015) 45 mL/min/1.73 sq m ESTIMATED GFR IS NOT ACCURATE CREATININE CLEARANCE IN PREDICTING GLOMERULAR FILTRATION RATE. ESTIMATED GFR IS NOT APPLICABLE FOR DIALYSIS PATIENTS. Specimen slightly [id number] 06:29:00* Test Item Value Reference Range Comments PHOSPHORUS (BEAKER) (test oynj=361) 3.3 mg/dL 2.3-4.7 [id number] 06:29:00* Test Item Value Reference Range Comments MAGNESIUM (BEAKER) (test dtfv=151) 2.2 mg/dL 1.6-2.6 PT/[id number] 06:03:00* Test Item Value Reference Range Comments PROTIME (BEAKER) (test qaxg=678) 20.8 seconds 11.7-14.7 INR (BEAKER) (test nwti=061) 1.8 <=5.9 PARTIAL THROMBOPLASTIN TIME (BEAKER) (test gpsu=326) 36.6 seconds 22.5-36.0 RECOMMENDED COUMADIN/WARFARIN INR THERAPY RANGESSTANDARD DOSE: 2.0 - 3.0 Includes: PROPHYLAXIS for venous thrombosis, systemic embolization; TREATMENT for venous thrombosis and/or pulmonary embolus.HIGH RISK: Target INR is 2.5-3.5 for patients with mechanical heart valves.PROTHROMBIN TIME/[id number] 06:02: 00* Test Item Value Reference Range Comments PROTIME (BEAKER) (test zlzm=959) 20.8 seconds 11.7-14.7 INR (BEAKER) (test wzue=174) 1.8 <=5.9 RECOMMENDED COUMADIN/WARFARIN INR THERAPY RANGESSTANDARD DOSE: 2.0 - 3.0 Includes: PROPHYLAXIS for venous thrombosis, systemic embolization; TREATMENT for venous thrombosis and/or pulmonary embolus.HIGH RISK: Target INR is 2.5-3.5 for patients with mechanical heart valves.POCT-GLUCOSE [id number] 00:53:00 * Test Item Value Reference Range Comments POC-GLUCOSE METER (BEAKER) (test juyd=6457) 249 mg/dL 70-110 TESTED AT [address] [address] POCT-GLUCOSE [id number] 21:52:00* Test Item Value Reference Range Comments POC-GLUCOSE METER (BEAKER) (test plnw=7628) 248 mg/dL 70-110 TESTED AT [address] [address] CREATININE, RANDOM [id number] 18:59:00* Test Item Value Reference Range Comments CREATININE URINE (BEAKER) (test ndez=022) 39.9 mg/dL Reference Range: No NormalsSODIUM, RANDOM [id number] 18:59:00* Test Item Value Reference Range Comments SODIUM URINE (BEAKER) (test nlwh=359) 30 meq/L Reference Range: No NormalsLACTIC ACID, VENOUS, WHOLE [id number] 18:53:00* Test Item Value Reference Range Comments LACTATE BLOOD VENOUS (2) (BEAKER) (test vrtf=8581) 1.7 mmol/L 0.5-2.2 Effective 12/21/2015: Units/Reference Range ChangeNew: 0.5-2.2 mmol/L Previous: 5 -20 mg/dLSpecimen slightly ictericURINALYSIS W/ [id number] 18:53:00* Test Item Value Reference Range Comments COLOR (BEAKER) (test acgh=640) Yellow CLARITY (BEAKER) (test rzfb=924) Clear SPECIFIC GRAVITY UA (BEAKER) (test hvzx=289) 1.007 1.001-1.035 PH UA (BEAKER) (test hvph=079) 6.0 5.0-8.0 PROTEIN UA (BEAKER) (test sgtq=234) Negative Negative GLUCOSE UA (BEAKER) (test vuwx=399) Negative Negative KETONES UA (BEAKER) (test gliz=622) Negative Negative BILIRUBIN UA (BEAKER) (test xyiz=816) Negative Negative BLOOD UA (BEAKER) (test vsjn=227) Small Negative NITRITE UA (BEAKER) (test qmmi=507) Negative Negative LEUKOCYTE ESTERASE UA (BEAKER) (test kobi=326) Moderate Negative UROBILINOGEN UA (BEAKER) (test jrgn=804) 0.2 mg/dL 0.2-1.0 RBC UA (BEAKER) (test duox=470) 4 /HPF WBC UA (BEAKER) (test aibw=881) 5 /HPF BACTERIA (BEAKER) (test xupv=627) Rare SQUAMOUS EPITHELIAL (BEAKER) (test cavr=414) 4 /HPF HYALINE CASTS (BEAKER) (test zlev=351) 6 /LPF YEAST (BEAKER) (test vlxa=5669) Rare SOURCE(BEAKER) (test gsrr=3558) BODY FLUID CELL COUNT WITH [id number] 17:51:00* Test Item Value Reference Range Comments APPEARANCE FLUID (BEAKER) (test dzcn=079) Cloudy Clear COLOR FLUID (BEAKER) (test cjbw=509) Yellow Colorless, Straw RBC FLUID (BEAKER) (test jucc=612) 1474 /cu mm <=1 ADJUSTED WBC FLUID (BEAKER) (test qytk=8229) 88 /cu mm <=5 LINING CELLS (BEAKER) (test tyev=6167) 5 /cu mm <=1 NEUTROPHILS FLUID (BEAKER) (test mvqb=1195) 12 % LYMPHS FLUID (BEAKER) (test bnfo=451) 18 % MONO/MACROPHAGE FLUID (BEAKER) (test xduq=783) 70 % EOSINOPHILS FLUID (BEAKER) (test ltxm=065) 0 % BASO FLUID (BEAKER) (test nsnx=554) 0 % CONTAINER BODY FLUID (BEAKER) (test rdmn=2825) EDTA Tube POCT-GLUCOSE [id number] 17:43:00* Test Item Value Reference Range Comments POC-GLUCOSE METER (BEAKER) (test kqyj=3869) 157 mg/dL 70-110 TESTED AT [facility] [address] [facility] [address] BODY FLUID CULTURE + GRAM [id number] 15:20:00* Test Item Value Reference Range Comments CULTURE (BEAKER) (test ytnw=0149) No growth GRAM STAIN RESULT (BEAKER) (test dspi=5336) 1+ WBCs GRAM STAIN RESULT (BEAKER) (test wktr=06017) No organisms seen BLOOD [id number] 13:14:00* Test Item Value Reference Range Comments CULTURE (BEAKER) (test uqmi=4696) No growth in 5 days COMPREHENSIVE METABOLIC [id number] 12:50:00* Test Item Value Reference Range Comments TOTAL PROTEIN (BEAKER) (test lcbq=456) 5.4 gm/dL 6.0-8.3 ALBUMIN (BEAKER) (test mxgi=5646) 2.2 g/dL 3.5-5.0 ALKALINE PHOSPHATASE (BEAKER) (test izbj=284) 81 U/L 40-150 BILIRUBIN TOTAL (BEAKER) (test fvca=354) 3.0 mg/dL 0.2-1.2 SODIUM (BEAKER) (test fcnx=112) 131 meq/L 136-145 POTASSIUM (BEAKER) (test mxxy=282) 4.0 meq/L 3.5-5.1 CHLORIDE (BEAKER) (test slgh=466) 105 meq/L 98-107 CO2 (BEAKER) (test tmzf=109) 20 meq/L 22-29 BLOOD UREA NITROGEN (BEAKER) (test mcvs=316) 39 mg/dL 7-21 CREATININE (BEAKER) (test aapg=313) 1.45 mg/dL 0.57-1.25 GLUCOSE RANDOM (BEAKER) (test uujy=440) 45 mg/dL 70-105 CALCIUM (BEAKER) (test tmrk=128) 7.9 mg/dL 8.4-10.2 AST (SGOT) (BEAKER) (test afpf=088) 27 U/L 5-34 ALT (SGPT) (BEAKER) (test nefp=469) 16 U/L 6-55 EGFR (BEAKER) (test cqnc=6636) 38 mL/min/1.73 sq m ESTIMATED GFR IS NOT ACCURATE CREATININE CLEARANCE IN PREDICTING GLOMERULAR FILTRATION RATE. ESTIMATED GFR IS NOT APPLICABLE FOR DIALYSIS PATIENTS. Specimen slightly ictericPOCT-GLUCOSE [id number] 12:36:00* Test Item Value Reference Range Comments POC-GLUCOSE METER (BEAKER) (test xmjf=2923) 89 mg/dL 70-110 TESTED AT [place] [id number] [facility] [address] PT/[id number] 12:21:00* Test Item Value Reference Range Comments PROTIME (BEAKER) (test zpjd=971) 19.8 seconds 11.7-14.7 INR (BEAKER) (test qyho=709) 1.7 <=5.9 PARTIAL THROMBOPLASTIN TIME (BEAKER) (test fqcj=442) 38.2 seconds 22.5-36.0 RECOMMENDED COUMADIN/WARFARIN INR THERAPY RANGESSTANDARD DOSE: 2.0 - 3.0 Includes: PROPHYLAXIS for venous thrombosis, systemic embolization; TREATMENT for venous thrombosis and/or pulmonary embolus.HIGH RISK: Target INR is 2.5-3.5 for patients with mechanical heart valves.PROTHROMBIN TIME/[id number] 12:20: 00* Test Item Value Reference Range Comments PROTIME (BEAKER) (test biyz=148) 19.8 seconds 11.7-14.7 INR (BEAKER) (test jgbj=834) 1.7 <=5.9 RECOMMENDED COUMADIN/WARFARIN INR THERAPY RANGESSTANDARD DOSE: 2.0 - 3.0 Includes: PROPHYLAXIS for venous thrombosis, systemic embolization; TREATMENT for venous thrombosis and/or pulmonary embolus.HIGH RISK: Target INR is 2.5-3.5 for patients with mechanical heart valves.POCT-GLUCOSE [id number] 12:18:00 * Test Item Value Reference Range Comments POC-GLUCOSE METER (BEAKER) (test ddpe=0164) 50 mg/dL 70-110 TESTED AT [facility] [address] [facility] [address] CBC W/PLT COUNT & AUTO [id number] 12:17:00* Test Item Value Reference Range Comments WHITE BLOOD CELL COUNT (BEAKER) (test ymmd=357) 6.3 K/ L 4.0-10.0 RED BLOOD CELL COUNT (BEAKER) (test ckvl=241) 2.85 M/ L 4.00-5.00 HEMOGLOBIN (BEAKER) (test icyg=465) 10.2 GM/DL 12.0-15.0 HEMATOCRIT (BEAKER) (test dkbv=497) 30.3 % 36.0-45.0 MEAN CORPUSCULAR VOLUME (BEAKER) (test daqb=332) 107.0 fL 82.0-99.0 MEAN CORPUSCULAR HEMOGLOBIN (BEAKER) (test lhlt=225) 35.9 pg 27.0-33.0 MEAN CORPUSCULAR HEMOGLOBIN CONC (BEAKER) (test gzit=633) 33.7 GM/DL 32.0- 36.0 RED CELL DISTRIBUTION WIDTH (BEAKER) (test zrwg=047) 15.9 % 10.3-14.2 PLATELET COUNT (BEAKER) (test hnxl=576) 42 K/CU MM 150-430 MEAN PLATELET VOLUME (BEAKER) (test jtul=237) 9.4 fL 6.5-10.5 NUCLEATED RED BLOOD CELLS (BEAKER) (test vmli=890) 0 /100 WBC 0-0 NEUTROPHILS RELATIVE PERCENT (BEAKER) (test lxhb=677) 83 % LYMPHOCYTES RELATIVE PERCENT (BEAKER) (test flhs=737) 10 % MONOCYTES RELATIVE PERCENT (BEAKER) (test izta=200) 6 % EOSINOPHILS RELATIVE PERCENT (BEAKER) (test kdip=119) 1 % BASOPHILS RELATIVE PERCENT (BEAKER) (test cbar=948) 0 % NEUTROPHILS ABSOLUTE COUNT (BEAKER) (test hvpx=096) 5.23 K/ L 1.80-8.00 LYMPHOCYTES ABSOLUTE COUNT (BEAKER) (test ubwi=235) 0.64 K/ L 1.48-4.50 MONOCYTES ABSOLUTE COUNT (BEAKER) (test pzto=299) 0.40 K/ L 0.00-1.30 EOSINOPHILS ABSOLUTE COUNT (BEAKER) (test szmi=975) 0.04 K/ L 0.00-0.50 BASOPHILS ABSOLUTE COUNT (BEAKER) (test vege=908) 0.02 K/ L 0.00-0.20 0.00POCT-GLUCOSE [id number] 11:33:00* Test Item Value Reference Range Comments POC-GLUCOSE METER (BEAKER) (test alwn=6673) 112 mg/dL 70-110 TESTED AT [facility] [address] [facility] [address] POCT-GLUCOSE [id number] 08:51:00* Test Item Value Reference Range Comments POC-GLUCOSE METER (BEAKER) (test bntf=0905) 98 mg/dL 70-110 TESTED AT [address] [address] POCT-GLUCOSE [id number] 08:25:00* Test Item Value Reference Range Comments POC-GLUCOSE METER (BEAKER) (test mocq=6820) 57 mg/dL 70-110 TESTED AT [address] [address] POCT-GLUCOSE [id number] 21:44:00* Test Item Value Reference Range Comments POC-GLUCOSE METER (BEAKER) (test acqb=5988) 361 mg/dL 70-110 Notified SELVIN JACOBSON/ TESTED AT [address] [address] POCT-GLUCOSE [id number] 16:16:00* Test Item Value Reference Range Comments POC-GLUCOSE METER (BEAKER) (test mutf=1058) 366 mg/dL 70-110 TESTED AT [address] [address] OCCULT BLOOD, [id number] 13:00:00* Test Item Value Reference Range Comments FECAL OCCULT BLOOD (BEAKER) (test jwkp=729) Positive Negative POCT-GLUCOSE [id number] 12:18:00* Test Item Value Reference Range Comments POC-GLUCOSE METER (BEAKER) (test kmrv=4769) 273 mg/dL 70-110 TESTED AT [address] [address] CBC W/PLT COUNT & AUTO [id number] 11:54:00* Test Item Value Reference Range Comments WHITE BLOOD CELL COUNT (BEAKER) (test mgmp=075) 2.6 K/ L 4.0-10.0 RED BLOOD CELL COUNT (BEAKER) (test itii=442) 2.63 M/ L 4.00-5.00 HEMOGLOBIN (BEAKER) (test maaj=953) 9.2 GM/DL 12.0-15.0 HEMATOCRIT (BEAKER) (test edtn=828) 27.9 % 36.0-45.0 MEAN CORPUSCULAR VOLUME (BEAKER) (test rzfk=264) 106.0 fL 82.0-99.0 MEAN CORPUSCULAR HEMOGLOBIN (BEAKER) (test owyk=125) 35.2 pg 27.0-33.0 MEAN CORPUSCULAR HEMOGLOBIN CONC (BEAKER) (test zshr=568) 33.1 GM/DL 32.0- 36.0 RED CELL DISTRIBUTION WIDTH (BEAKER) (test hqad=596) 16.6 % 10.3-14.2 PLATELET COUNT (BEAKER) (test jdgy=853) 23 K/CU MM 150-430 MEAN PLATELET VOLUME (BEAKER) (test vqoh=864) 9.4 fL 6.5-10.5 NUCLEATED RED BLOOD CELLS (BEAKER) (test khpk=748) 0 /100 WBC 0-0 NEUTROPHILS RELATIVE PERCENT (BEAKER) (test zued=408) 77 % LYMPHOCYTES RELATIVE PERCENT (BEAKER) (test vezj=918) 14 % MONOCYTES RELATIVE PERCENT (BEAKER) (test mlxx=284) 7 % EOSINOPHILS RELATIVE PERCENT (BEAKER) (test timl=715) 2 % BASOPHILS RELATIVE PERCENT (BEAKER) (test nise=119) 0 % NEUTROPHILS ABSOLUTE COUNT (BEAKER) (test atue=165) 2.00 K/ L 1.80-8.00 LYMPHOCYTES ABSOLUTE COUNT (BEAKER) (test rhfx=180) 0.37 K/ L 1.48-4.50 MONOCYTES ABSOLUTE COUNT (BEAKER) (test vwhg=629) 0.19 K/ L 0.00-1.30 EOSINOPHILS ABSOLUTE COUNT (BEAKER) (test dgol=976) 0.05 K/ L 0.00-0.50 BASOPHILS ABSOLUTE COUNT (BEAKER) (test tyzl=267) 0.00 K/ L 0.00-0.20 0.00(MANUAL DIFFERENTIAL)2016-12-29 11:54:00* Test Item Value Reference Range Comments TOTAL COUNTED (BEAKER) (test hfif=9492) WBC MORPHOLOGY (BEAKER) (test gzqn=969) Normal PLT MORPHOLOGY (BEAKER) (test ygqv=555) Normal MACROCYTES (BEAKER) (test uvvg=845) 1+ few TEAR DROP CELLS (BEAKER) (test pbei=144) 1+ few COMPREHENSIVE METABOLIC [id number] 11:15:00* Test Item Value Reference Range Comments TOTAL PROTEIN (BEAKER) (test jgin=040) 5.3 gm/dL 6.0-8.3 ALBUMIN (BEAKER) (test rvse=7230) 2.1 g/dL 3.5-5.0 ALKALINE PHOSPHATASE (BEAKER) (test epsb=993) 74 U/L 40-150 BILIRUBIN TOTAL (BEAKER) (test hoqe=338) 3.3 mg/dL 0.2-1.2 SODIUM (BEAKER) (test kktz=070) 133 meq/L 136-145 POTASSIUM (BEAKER) (test cocc=835) 4.0 meq/L 3.5-5.1 CHLORIDE (BEAKER) (test bjiq=618) 106 meq/L 98-107 CO2 (BEAKER) (test ljmv=201) 22 meq/L 22-29 BLOOD UREA NITROGEN (BEAKER) (test kemr=700) 33 mg/dL 7-21 CREATININE (BEAKER) (test bejv=218) 1.18 mg/dL 0.57-1.25 GLUCOSE RANDOM (BEAKER) (test nxzr=521) 224 mg/dL 70-105 CALCIUM (BEAKER) (test qouk=019) 7.9 mg/dL 8.4-10.2 AST (SGOT) (BEAKER) (test knxi=270) 23 U/L 5-34 ALT (SGPT) (BEAKER) (test lcoc=361) 15 U/L 6-55 EGFR (BEAKER) (test jmkj=1146) 48 mL/min/1.73 sq m ESTIMATED GFR IS NOT ACCURATE CREATININE CLEARANCE IN PREDICTING GLOMERULAR FILTRATION RATE. ESTIMATED GFR IS NOT APPLICABLE FOR DIALYSIS PATIENTS. Specimen slightly ictericPOCT-GLUCOSE [id number] 08:13:00* Test Item Value Reference Range Comments POC-GLUCOSE METER (BEAKER) (test oscr=0265) 265 mg/dL 70-110 TESTED AT [place] [id number] [facility] [address] POCT-GLUCOSE [id number] 20:17:00* Test Item Value Reference Range Comments POC-GLUCOSE METER (BEAKER) (test fetp=7115) 200 mg/dL 70-110 TESTED AT [place] [id number] [facility] [address] POCT-GLUCOSE [id number] 16:28:00* Test Item Value Reference Range Comments POC-GLUCOSE METER (BEAKER) (test oanv=7133) 183 mg/dL 70-110 TESTED AT [place] [id number] [facility] [address] POCT-GLUCOSE [id number] 11:42:00* Test Item Value Reference Range Comments POC-GLUCOSE METER (BEAKER) (test dznx=8379) 157 mg/dL 70-110 TESTED AT [facility] [address] [facility] [address] CBC W/PLT COUNT & AUTO [id number] 10:11:00* Test Item Value Reference Range Comments WHITE BLOOD CELL COUNT (BEAKER) (test pejx=159) 2.8 K/ L 4.0-10.0 RED BLOOD CELL COUNT (BEAKER) (test iijw=797) 2.41 M/ L 4.00-5.00 HEMOGLOBIN (BEAKER) (test zhcg=233) 8.7 GM/DL 12.0-15.0 HEMATOCRIT (BEAKER) (test qqah=055) 25.2 % 36.0-45.0 MEAN CORPUSCULAR VOLUME (BEAKER) (test txac=863) 105.0 fL 82.0-99.0 MEAN CORPUSCULAR HEMOGLOBIN (BEAKER) (test dgej=237) 36.0 pg 27.0-33.0 MEAN CORPUSCULAR HEMOGLOBIN CONC (BEAKER) (test qkxl=146) 34.3 GM/DL 32.0- 36.0 RED CELL DISTRIBUTION WIDTH (BEAKER) (test nygr=533) 15.9 % 10.3-14.2 PLATELET COUNT (BEAKER) (test knpb=680) 28 K/CU MM 150-430 MEAN PLATELET VOLUME (BEAKER) (test wfwp=161) 9.6 fL 6.5-10.5 NUCLEATED RED BLOOD CELLS (BEAKER) (test erbz=234) 0 /100 WBC 0-0 NEUTROPHILS RELATIVE PERCENT (BEAKER) (test lszz=810) 73 % LYMPHOCYTES RELATIVE PERCENT (BEAKER) (test xuem=926) 19 % MONOCYTES RELATIVE PERCENT (BEAKER) (test qiwy=706) 6 % EOSINOPHILS RELATIVE PERCENT (BEAKER) (test enzc=159) 2 % BASOPHILS RELATIVE PERCENT (BEAKER) (test vmim=753) 0 % NEUTROPHILS ABSOLUTE COUNT (BEAKER) (test tvop=038) 2.01 K/ L 1.80-8.00 LYMPHOCYTES ABSOLUTE COUNT (BEAKER) (test evci=324) 0.53 K/ L 1.48-4.50 MONOCYTES ABSOLUTE COUNT (BEAKER) (test yazg=778) 0.16 K/ L 0.00-1.30 EOSINOPHILS ABSOLUTE COUNT (BEAKER) (test cfsx=654) 0.06 K/ L 0.00-0.50 BASOPHILS ABSOLUTE COUNT (BEAKER) (test mmsv=180) 0.01 K/ L 0.00-0.20 0.00(MANUAL DIFFERENTIAL)2016-12-28 10:11:00* Test Item Value Reference Range Comments TOTAL COUNTED (BEAKER) (test bdxa=5045) WBC MORPHOLOGY (BEAKER) (test dneq=143) Normal PLT MORPHOLOGY (BEAKER) (test snen=355) Normal MACROCYTES (BEAKER) (test zlmd=199) 1+ few TEAR DROP CELLS (BEAKER) (test qogc=687) 1+ few POCT-GLUCOSE [id number] 07:40:00* Test Item Value Reference Range Comments POC-GLUCOSE METER (BEAKER) (test ohqe=1798) 93 mg/dL 70-110 TESTED AT [facility] [address] [facility] [address] COMPREHENSIVE METABOLIC [id number] 06:10:00* Test Item Value Reference Range Comments TOTAL PROTEIN (BEAKER) (test igit=300) 4.5 gm/dL 6.0-8.3 ALBUMIN (BEAKER) (test arbm=0824) 1.8 g/dL 3.5-5.0 ALKALINE PHOSPHATASE (BEAKER) (test kpue=761) 78 U/L 40-150 BILIRUBIN TOTAL (BEAKER) (test qkqm=605) 2.2 mg/dL 0.2-1.2 SODIUM (BEAKER) (test domx=570) 132 meq/L 136-145 POTASSIUM (BEAKER) (test vcuf=808) 4.0 meq/L 3.5-5.1 CHLORIDE (BEAKER) (test mmtn=504) 108 meq/L 98-107 CO2 (BEAKER) (test ioyq=296) 19 meq/L 22-29 BLOOD UREA NITROGEN (BEAKER) (test alwf=381) 29 mg/dL 7-21 CREATININE (BEAKER) (test mvtl=892) 0.96 mg/dL 0.57-1.25 GLUCOSE RANDOM (BEAKER) (test duqr=635) 82 mg/dL 70-105 CALCIUM (BEAKER) (test jkym=687) 7.6 mg/dL 8.4-10.2 AST (SGOT) (BEAKER) (test waoo=141) 22 U/L 5-34 ALT (SGPT) (BEAKER) (test eiap=874) 11 U/L 6-55 EGFR (BEAKER) (test oopk=5082) 62 mL/min/1.73 sq m ESTIMATED GFR IS NOT ACCURATE CREATININE CLEARANCE IN PREDICTING GLOMERULAR FILTRATION RATE. ESTIMATED GFR IS NOT APPLICABLE FOR DIALYSIS PATIENTS. POCT-GLUCOSE [id number] 20:38:00* Test Item Value Reference Range Comments POC-GLUCOSE METER (BEAKER) (test chwy=2839) 189 mg/dL 70-110 TESTED AT [place] [id number] [facility] [address] POCT-GLUCOSE [id number] 16:22:00* Test Item Value Reference Range Comments POC-GLUCOSE METER (BEAKER) (test rbbc=3218) 139 mg/dL 70-110 TESTED AT [address] [address] POCT-GLUCOSE [id number] 12:03:00* Test Item Value Reference Range Comments POC-GLUCOSE METER (BEAKER) (test izri=4522) 89 mg/dL 70-110 TESTED AT [address] [address] COMPREHENSIVE METABOLIC [id number] 07:55:00* Test Item Value Reference Range Comments TOTAL PROTEIN (BEAKER) (test izjr=961) 4.8 gm/dL 6.0-8.3 ALBUMIN (BEAKER) (test scsq=2251) 1.9 g/dL 3.5-5.0 ALKALINE PHOSPHATASE (BEAKER) (test qopl=546) 78 U/L 40-150 BILIRUBIN TOTAL (BEAKER) (test cuuf=905) 2.6 mg/dL 0.2-1.2 SODIUM (BEAKER) (test sgbp=952) 132 meq/L 136-145 POTASSIUM (BEAKER) (test hjrq=044) 3.4 meq/L 3.5-5.1 CHLORIDE (BEAKER) (test iqqd=605) 107 meq/L 98-107 CO2 (BEAKER) (test yhbx=294) 21 meq/L 22-29 BLOOD UREA NITROGEN (BEAKER) (test hooi=973) 22 mg/dL 7-21 CREATININE (BEAKER) (test oknd=542) 0.93 mg/dL 0.57-1.25 GLUCOSE RANDOM (BEAKER) (test bsth=686) 152 mg/dL 70-105 CALCIUM (BEAKER) (test pnch=056) 8.1 mg/dL 8.4-10.2 AST (SGOT) (BEAKER) (test hnob=848) 18 U/L 5-34 ALT (SGPT) (BEAKER) (test khrn=979) 11 U/L 6-55 EGFR (BEAKER) (test apdx=3127) 64 mL/min/1.73 sq m ESTIMATED GFR IS NOT ACCURATE CREATININE CLEARANCE IN PREDICTING GLOMERULAR FILTRATION RATE. ESTIMATED GFR IS NOT APPLICABLE FOR DIALYSIS PATIENTS. Specimen slightly ictericCBC W/PLT COUNT & AUTO [id number] 07:52:00 * Test Item Value Reference Range Comments WHITE BLOOD CELL COUNT (BEAKER) (test ctvh=917) 2.6 K/ L 4.0-10.0 RED BLOOD CELL COUNT (BEAKER) (test qtur=011) 2.69 M/ L 4.00-5.00 HEMOGLOBIN (BEAKER) (test riod=624) 9.4 GM/DL 12.0-15.0 HEMATOCRIT (BEAKER) (test xbxt=782) 28.8 % 36.0-45.0 MEAN CORPUSCULAR VOLUME (BEAKER) (test unsh=083) 107.0 fL 82.0-99.0 MEAN CORPUSCULAR HEMOGLOBIN (BEAKER) (test eyiv=305) 34.9 pg 27.0-33.0 MEAN CORPUSCULAR HEMOGLOBIN CONC (BEAKER) (test ytro=360) 32.6 GM/DL 32.0- 36.0 RED CELL DISTRIBUTION WIDTH (BEAKER) (test gyyj=646) 15.2 % 10.3-14.2 PLATELET COUNT (BEAKER) (test leml=484) 31 K/CU MM 150-430 MEAN PLATELET VOLUME (BEAKER) (test hufn=148) 9.6 fL 6.5-10.5 NUCLEATED RED BLOOD CELLS (BEAKER) (test uhmz=380) 0 /100 WBC 0-0 NEUTROPHILS RELATIVE PERCENT (BEAKER) (test zntl=498) 68 % LYMPHOCYTES RELATIVE PERCENT (BEAKER) (test nuws=650) 21 % MONOCYTES RELATIVE PERCENT (BEAKER) (test payq=250) 8 % EOSINOPHILS RELATIVE PERCENT (BEAKER) (test umwv=161) 2 % BASOPHILS RELATIVE PERCENT (BEAKER) (test bsdl=904) 0 % NEUTROPHILS ABSOLUTE COUNT (BEAKER) (test whtb=553) 1.80 K/ L 1.80-8.00 LYMPHOCYTES ABSOLUTE COUNT (BEAKER) (test bcie=757) 0.56 K/ L 1.48-4.50 MONOCYTES ABSOLUTE COUNT (BEAKER) (test fpte=748) 0.22 K/ L 0.00-1.30 EOSINOPHILS ABSOLUTE COUNT (BEAKER) (test zvsm=667) 0.05 K/ L 0.00-0.50 BASOPHILS ABSOLUTE COUNT (BEAKER) (test btze=802) 0.01 K/ L 0.00-0.20 0.00(MANUAL DIFFERENTIAL)2016-12-27 07:52:00* Test Item Value Reference Range Comments TOTAL COUNTED (BEAKER) (test tmyn=5413) POCT-GLUCOSE [id number] 07:16:00* Test Item Value Reference Range Comments POC-GLUCOSE METER (BEAKER) (test efww=7278) 167 mg/dL 70-110 TESTED AT [address] [address] POCT-GLUCOSE [id number] 22:42:00* Test Item Value Reference Range Comments POC-GLUCOSE METER (BEAKER) (test voym=6622) 234 mg/dL 70-110 TESTED AT [address] [address] POCT-GLUCOSE [id number] 16:58:00* Test Item Value Reference Range Comments POC-GLUCOSE METER (BEAKER) (test crmr=6208) 270 mg/dL 70-110 TESTED AT [address] [address] CBC W/PLT COUNT & AUTO [id number] 15:53:00* Test Item Value Reference Range Comments WHITE BLOOD CELL COUNT (BEAKER) (test jyvd=929) 2.4 K/ L 4.0-10.0 RED BLOOD CELL COUNT (BEAKER) (test xhiy=241) 2.75 M/ L 4.00-5.00 HEMOGLOBIN (BEAKER) (test hbzc=357) 9.8 GM/DL 12.0-15.0 HEMATOCRIT (BEAKER) (test mydo=905) 29.4 % 36.0-45.0 MEAN CORPUSCULAR VOLUME (BEAKER) (test lqjf=834) 107.0 fL 82.0-99.0 MEAN CORPUSCULAR HEMOGLOBIN (BEAKER) (test pbei=322) 35.7 pg 27.0-33.0 MEAN CORPUSCULAR HEMOGLOBIN CONC (BEAKER) (test tvzt=533) 33.4 GM/DL 32.0- 36.0 RED CELL DISTRIBUTION WIDTH (BEAKER) (test kpyg=913) 15.2 % 10.3-14.2 PLATELET COUNT (BEAKER) (test etgw=463) 31 K/CU MM 150-430 MEAN PLATELET VOLUME (BEAKER) (test fupe=679) 9.5 fL 6.5-10.5 NUCLEATED RED BLOOD CELLS (BEAKER) (test wllm=346) 0 /100 WBC 0-0 NEUTROPHILS RELATIVE PERCENT (BEAKER) (test vexb=453) 70 % LYMPHOCYTES RELATIVE PERCENT (BEAKER) (test sdnw=096) 22 % MONOCYTES RELATIVE PERCENT (BEAKER) (test yfzq=551) 6 % EOSINOPHILS RELATIVE PERCENT (BEAKER) (test gejv=327) 1 % BASOPHILS RELATIVE PERCENT (BEAKER) (test qkys=508) 1 % NEUTROPHILS ABSOLUTE COUNT (BEAKER) (test xqhq=000) 1.69 K/ L 1.80-8.00 LYMPHOCYTES ABSOLUTE COUNT (BEAKER) (test lvmj=088) 0.53 K/ L 1.48-4.50 MONOCYTES ABSOLUTE COUNT (BEAKER) (test xkiy=054) 0.14 K/ L 0.00-1.30 EOSINOPHILS ABSOLUTE COUNT (BEAKER) (test umdw=223) 0.02 K/ L 0.00-0.50 BASOPHILS ABSOLUTE COUNT (BEAKER) (test jmqs=416) 0.03 K/ L 0.00-0.20 BODY FLUID CELL COUNT WITH [id number] 15:33:00* Test Item Value Reference Range Comments APPEARANCE FLUID (BEAKER) (test sugs=581) Hazy Clear COLOR FLUID (BEAKER) (test rsfo=041) Yellow Colorless, Straw RBC FLUID (BEAKER) (test wdnt=415) 2535 /cu mm <=1 ADJUSTED WBC FLUID (BEAKER) (test nzdu=5655) 198 /cu mm <=5 LINING CELLS (BEAKER) (test uucp=3893) 22 /cu mm <=1 NEUTROPHILS FLUID (BEAKER) (test lytp=0562) 10 % LYMPHS FLUID (BEAKER) (test kbtk=886) 32 % MONO/MACROPHAGE FLUID (BEAKER) (test gtfo=060) 58 % EOSINOPHILS FLUID (BEAKER) (test sgcf=905) 0 % BASO FLUID (BEAKER) (test tpim=888) 0 % CONTAINER BODY FLUID (BEAKER) (test bsus=1002) EDTA Tube COMPREHENSIVE METABOLIC [id number] 14:48:00* Test Item Value Reference Range Comments TOTAL PROTEIN (BEAKER) (test llfo=620) 5.0 gm/dL 6.0-8.3 ALBUMIN (BEAKER) (test yuwy=5701) 2.0 g/dL 3.5-5.0 ALKALINE PHOSPHATASE (BEAKER) (test hony=667) 77 U/L 40-150 BILIRUBIN TOTAL (BEAKER) (test yefx=879) 2.8 mg/dL 0.2-1.2 SODIUM (BEAKER) (test hsuo=981) 138 meq/L 136-145 POTASSIUM (BEAKER) (test fpqe=672) 3.5 meq/L 3.5-5.1 CHLORIDE (BEAKER) (test ndor=398) 109 meq/L 98-107 CO2 (BEAKER) (test wimb=576) 23 meq/L 22-29 BLOOD UREA NITROGEN (BEAKER) (test ftks=430) 19 mg/dL 7-21 CREATININE (BEAKER) (test kfuw=249) 0.87 mg/dL 0.57-1.25 GLUCOSE RANDOM (BEAKER) (test poru=352) 197 mg/dL 70-105 CALCIUM (BEAKER) (test tsgt=337) 8.3 mg/dL 8.4-10.2 AST (SGOT) (BEAKER) (test jzcq=338) 19 U/L 5-34 ALT (SGPT) (BEAKER) (test lwwu=920) 11 U/L 6-55 EGFR (BEAKER) (test pjdh=1849) 69 mL/min/1.73 sq m ESTIMATED GFR IS NOT ACCURATE CREATININE CLEARANCE IN PREDICTING GLOMERULAR FILTRATION RATE. ESTIMATED GFR IS NOT APPLICABLE FOR DIALYSIS PATIENTS. Specimen slightly ictericPOCT-GLUCOSE [id number] 14:08:00* Test Item Value Reference Range Comments POC-GLUCOSE METER (BEAKER) (test zesz=8533) 231 mg/dL 70-110 TESTED AT [facility] [address] [facility] [address] ALBUMIN, BODY [id number] 13:54:00* Test Item Value Reference Range Comments ALBUMIN FLUID (BEAKER) (test glnk=377) 0.5 gm/dL Reference Range: No Normals Assay performance has not been validated for this type of specimen.PROTEIN, BODY [id number] 13:39:00* Test Item Value Reference Range Comments PROTEIN FLUID (BEAKER) (test wttq=326) 1.1 g/dL Absence of reference range indicates that normals have not been defined.Assay performance has not been validated for this type of specimen.POCT-GLUCOSE [id number] 07:21:00* Test Item Value Reference Range Comments POC-GLUCOSE METER (BEAKER) (test thrp=4302) 236 mg/dL 70-110 TESTED AT [place] [id number] POCT-GLUCOSE [id number] 21:01:00* Test Item Value Reference Range Comments POC-GLUCOSE METER (BEAKER) (test joiy=9274) 308 mg/dL 70-110 Notified SELVIN JACOBSON/ TESTED AT [address] [address] POCT-GLUCOSE [id number] 18:06:00* Test Item Value Reference Range Comments POC-GLUCOSE METER (BEAKER) (test holg=3431) 201 mg/dL 70-110 TESTED AT [address] [address] POCT-GLUCOSE [id number] 12:43:00* Test Item Value Reference Range Comments POC-GLUCOSE METER (BEAKER) (test gddi=1242) 229 mg/dL 70-110 TESTED AT [address] [address] URINALYSIS W/ [id number] 11:51:00* Test Item Value Reference Range Comments COLOR (BEAKER) (test tchd=725) Yellow CLARITY (BEAKER) (test mlei=770) Clear SPECIFIC GRAVITY UA (BEAKER) (test ldmb=013) 1.009 1.001-1.035 PH UA (BEAKER) (test rvev=360) 6.5 5.0-8.0 PROTEIN UA (BEAKER) (test lkgh=764) Negative Negative GLUCOSE UA (BEAKER) (test aogo=668) Negative Negative KETONES UA (BEAKER) (test wkbr=074) Negative Negative BILIRUBIN UA (BEAKER) (test egoi=582) Negative Negative BLOOD UA (BEAKER) (test joah=904) Negative Negative NITRITE UA (BEAKER) (test lhbn=026) Negative Negative LEUKOCYTE ESTERASE UA (BEAKER) (test zdgu=745) Negative Negative UROBILINOGEN UA (BEAKER) (test fbdq=422) 0.2 mg/dL 0.2-1.0 RBC UA (BEAKER) (test shxn=023) 1 /HPF WBC UA (BEAKER) (test vuln=491) < /HPF BACTERIA (BEAKER) (test sgur=382) Rare SQUAMOUS EPITHELIAL (BEAKER) (test lvtw=246) < /HPF HYALINE CASTS (BEAKER) (test hvtg=022) < /LPF SOURCE(BEAKER) (test zazj=2234) Urine, Straight Catheter CBC W/PLT COUNT & AUTO [id number] 07:45:00* Test Item Value Reference Range Comments WHITE BLOOD CELL COUNT (BEAKER) (test kcaj=425) 2.2 K/ L 4.0-10.0 RED BLOOD CELL COUNT (BEAKER) (test lveh=508) 2.56 M/ L 4.00-5.00 HEMOGLOBIN (BEAKER) (test alin=294) 8.9 GM/DL 12.0-15.0 HEMATOCRIT (BEAKER) (test rqdl=000) 26.9 % 36.0-45.0 MEAN CORPUSCULAR VOLUME (BEAKER) (test yahh=793) 105.0 fL 82.0-99.0 MEAN CORPUSCULAR HEMOGLOBIN (BEAKER) (test aybe=673) 34.7 pg 27.0-33.0 MEAN CORPUSCULAR HEMOGLOBIN CONC (BEAKER) (test qwyr=894) 32.9 GM/DL 32.0- 36.0 RED CELL DISTRIBUTION WIDTH (BEAKER) (test kxww=714) 15.9 % 10.3-14.2 PLATELET COUNT (BEAKER) (test ywps=150) 31 K/CU MM 150-430 MEAN PLATELET VOLUME (BEAKER) (test jxnm=624) 9.2 fL 6.5-10.5 NUCLEATED RED BLOOD CELLS (BEAKER) (test viob=402) 0 /100 WBC 0-0 NEUTROPHILS RELATIVE PERCENT (BEAKER) (test rhgp=774) 71 % LYMPHOCYTES RELATIVE PERCENT (BEAKER) (test zgdh=779) 20 % MONOCYTES RELATIVE PERCENT (BEAKER) (test ceol=744) 8 % EOSINOPHILS RELATIVE PERCENT (BEAKER) (test bjqd=273) 2 % BASOPHILS RELATIVE PERCENT (BEAKER) (test dwbi=219) 1 % NEUTROPHILS ABSOLUTE COUNT (BEAKER) (test ewqo=547) 1.55 K/ L 1.80-8.00 LYMPHOCYTES ABSOLUTE COUNT (BEAKER) (test ommd=877) 0.43 K/ L 1.48-4.50 MONOCYTES ABSOLUTE COUNT (BEAKER) (test kkue=250) 0.17 K/ L 0.00-1.30 EOSINOPHILS ABSOLUTE COUNT (BEAKER) (test fjty=206) 0.03 K/ L 0.00-0.50 BASOPHILS ABSOLUTE COUNT (BEAKER) (test iavk=186) 0.01 K/ L 0.00-0.20 0.00(MANUAL DIFFERENTIAL)2016-12-25 07:45:00* Test Item Value Reference Range Comments TOTAL COUNTED (BEAKER) (test cvkd=5212) WBC MORPHOLOGY (BEAKER) (test polb=391) Normal PLT MORPHOLOGY (BEAKER) (test vhhs=118) Normal POLYCHROMATOPHILLIC RBCS(BEAKER) (test dllc=160) 1+ few POCT-GLUCOSE [id number] 06:56:00* Test Item Value Reference Range Comments POC-GLUCOSE METER (BEAKER) (test ayqo=0521) 275 mg/dL 70-110 TESTED AT [address] [address] VITAMIN B12 AND [id number] 05:45:00* Test Item Value Reference Range Comments VITAMIN B12 (BEAKER) (test emeq=361) 1280 pg/mL 213-816 FOLATE (BEAKER) (test aswl=930) 14.1 ng/mL >=7.0 Effective 07/06/2014: Folate Reference Range ChangeNew: >=7.0 Previous: >= [id number] 05:31:00* Test Item Value Reference Range Comments AMMONIA (BEAKER) (test uawa=342) 293 mol/L 18-72 Specimen slightly hemolyzed [id number] 05:08:00* Test Item Value Reference Range Comments PARTIAL THROMBOPLASTIN TIME (BEAKER) (test xovd=581) 40.3 seconds 22.5-36.0 PROTHROMBIN TIME/[id number] 05:07:00* Test Item Value Reference Range Comments PROTIME (BEAKER) (test iayb=120) 23.3 seconds 11.7-14.7 INR (BEAKER) (test hvci=806) 2.1 <=5.9 RECOMMENDED COUMADIN/WARFARIN INR THERAPY RANGESSTANDARD DOSE: 2.0 - 3.0 Includes: PROPHYLAXIS for venous thrombosis, systemic embolization; TREATMENT for venous thrombosis and/or pulmonary embolus.HIGH RISK: Target INR is 2.5-3.5 for patients with mechanical heart valves.LACTIC ACID, VENOUS, WHOLE [id number] 00:56:00* Test Item Value Reference Range Comments LACTATE BLOOD VENOUS (2) (BEAKER) (test mrdh=0908) 1.4 mmol/L 0.5-2.2 Effective 12/21/2015: Units/Reference Range ChangeNew: 0.5-2.2 mmol/L Previous: 5 -20 mg/dLSpecimen slightly ictericB-TYPE NATRIURETIC FACTOR (BNP)2016-12-25 00: 54:00* Test Item Value Reference Range Comments B-TYPE NATRIURETIC PEPTIDE (BEAKER) (test zbwr=748) 222 pg/mL 0-100 CREATINE KINASE (CK), TOTAL AND [id number] 23:42:00* Test Item Value Reference Range Comments CREATINE KINASE TOTAL (BEAKER) (test kkdq=422) 50 U/L 29-200 CREATINE KINASE-MB (BEAKER) (test xpmn=738) 1.2 ng/mL 0.0-6.6 CREATINE KINASE-MB INDEX (BEAKER) (test zbmz=170) 2.4 % Effective 07/06/2014: CK-MB Reference Range ChangeNew: 0.0-6.6 Previous: 0.0- 4.9CK-MB Reference Range:<6.7 Normal6.7-10.0 Borderline>10.0 AbnormalTROPONIN [id number] 23:42:00* Test Item Value Reference Range Comments TROPONIN I (BEAKER) (test xnih=752) 0.01 ng/mL 0.00-0.03 Effective 07/06/2014: Reference Range ChangeNew: 0.00-0.03 Previous 0.00- 0.15Troponin I (TnI) levels must be interpreted in the context of the presenting symptoms and the clinical findings. Elevated TnI levels indicate myocardial damage, but are not specific for ischemic heart disease. Elevated TnI levels are seen in patients with other cardiac conditions (including myocarditis and congestive heart failure), and slight TnI elevations occur in patients with other conditions, including sepsis, renal failure, acidosis, acute neurological disease, and persistent tachyarrhythmia.[id number] 22: 52:00* Test Item Value Reference Range Comments AMYLASE (BEAKER) (test cdfs=326) 64 U/L 25-125 Specimen moderately ictericBASIC METABOLIC [id number] 22:52:00* Test Item Value Reference Range Comments SODIUM (BEAKER) (test piuq=675) 136 meq/L 136-145 POTASSIUM (BEAKER) (test dpst=828) 4.5 meq/L 3.5-5.1 CHLORIDE (BEAKER) (test qiqn=643) 107 meq/L 98-107 CO2 (BEAKER) (test kqpv=219) 22 meq/L 22-29 BLOOD UREA NITROGEN (BEAKER) (test cuqa=140) 22 mg/dL 7-21 CREATININE (BEAKER) (test ldbj=479) 1.07 mg/dL 0.57-1.25 GLUCOSE RANDOM (BEAKER) (test ownn=453) 161 mg/dL 70-105 CALCIUM (BEAKER) (test tfvd=215) 8.5 mg/dL 8.4-10.2 EGFR (BEAKER) (test bkew=2715) 54 mL/min/1.73 sq m ESTIMATED GFR IS NOT ACCURATE CREATININE CLEARANCE IN PREDICTING GLOMERULAR FILTRATION RATE. ESTIMATED GFR IS NOT APPLICABLE FOR DIALYSIS PATIENTS. Specimen moderately ictericHEPATIC FUNCTION [id number] 22:52:00* Test Item Value Reference Range Comments TOTAL PROTEIN (BEAKER) (test nmki=647) 5.8 gm/dL 6.0-8.3 ALBUMIN (BEAKER) (test wubc=2152) 2.4 g/dL 3.5-5.0 BILIRUBIN TOTAL (BEAKER) (test hhut=136) 4.2 mg/dL 0.2-1.2 BILIRUBIN DIRECT (BEAKER) (test dqfs=176) 1.8 mg/dL 0.1-0.5 ALKALINE PHOSPHATASE (BEAKER) (test lnbe=878) 88 U/L 40-150 AST (SGOT) (BEAKER) (test nlea=312) 24 U/L 5-34 ALT (SGPT) (BEAKER) (test vvfe=087) 14 U/L 6-55 Specimen moderately [id number] 22:52:00* Test Item Value Reference Range Comments LIPASE (BEAKER) (test cjop=747) 52 U/L 8-78 Specimen moderately [id number] 22:41:00* Test Item Value Reference Range Comments AMMONIA (BEAKER) (test ssht=335) 178 mol/L 18-72 CBC W/PLT COUNT & AUTO [id number] 22:32:00* Test Item Value Reference Range Comments WHITE BLOOD CELL COUNT (BEAKER) (test npni=756) 3.3 K/ L 4.0-10.0 RED BLOOD CELL COUNT (BEAKER) (test ignu=450) 3.11 M/ L 4.00-5.00 HEMOGLOBIN (BEAKER) (test grpv=598) 10.8 GM/DL 12.0-15.0 HEMATOCRIT (BEAKER) (test fauf=576) 33.1 % 36.0-45.0 MEAN CORPUSCULAR VOLUME (BEAKER) (test rbya=689) 107.0 fL 82.0-99.0 MEAN CORPUSCULAR HEMOGLOBIN (BEAKER) (test dbgz=542) 34.8 pg 27.0-33.0 MEAN CORPUSCULAR HEMOGLOBIN CONC (BEAKER) (test brgk=644) 32.7 GM/DL 32.0- 36.0 RED CELL DISTRIBUTION WIDTH (BEAKER) (test xeni=130) 15.9 % 10.3-14.2 PLATELET COUNT (BEAKER) (test gmck=245) 35 K/CU MM 150-430 MEAN PLATELET VOLUME (BEAKER) (test zdtq=581) 10.2 fL 6.5-10.5 NUCLEATED RED BLOOD CELLS (BEAKER) (test itii=218) 0 /100 WBC 0-0 NEUTROPHILS RELATIVE PERCENT (BEAKER) (test evfy=784) 79 % LYMPHOCYTES RELATIVE PERCENT (BEAKER) (test ogvi=422) 13 % MONOCYTES RELATIVE PERCENT (BEAKER) (test nnhd=508) 6 % EOSINOPHILS RELATIVE PERCENT (BEAKER) (test tkwz=813) 1 % BASOPHILS RELATIVE PERCENT (BEAKER) (test gfia=111) 0 % NEUTROPHILS ABSOLUTE COUNT (BEAKER) (test caie=822) 2.61 K/ L 1.80-8.00 LYMPHOCYTES ABSOLUTE COUNT (BEAKER) (test yall=164) 0.43 K/ L 1.48-4.50 MONOCYTES ABSOLUTE COUNT (BEAKER) (test ejar=519) 0.21 K/ L 0.00-1.30 EOSINOPHILS ABSOLUTE COUNT (BEAKER) (test syog=887) 0.04 K/ L 0.00-0.50 BASOPHILS ABSOLUTE COUNT (BEAKER) (test vugn=731) 0.00 K/ L 0.00-0.20 0.00POCT-GLUCOSE [id number] 22:14:00* Test Item Value Reference Range Comments POC-GLUCOSE METER (BEAKER) (test ukvt=1867) 193 mg/dL 70-110 TESTED AT [facility] [address] [facility] [address] ALPHA FETOPROTEIN (AFP), TUMOR [id number] 12:46:00* Test Item Value Reference Range Comments ALPHA-FETOPROTEIN (BEAKER) (test dcvh=1438) < ng/mL <10.0 Effective 07/06/2014: Reference Range ChangeNew: <10.0 Previous: 0.0-8.0BASIC METABOLIC [id number] 12:28:00* Test Item Value Reference Range Comments SODIUM (BEAKER) (test dpql=231) 137 meq/L 136-145 POTASSIUM (BEAKER) (test llde=309) 3.9 meq/L 3.5-5.1 CHLORIDE (BEAKER) (test dfjo=733) 109 meq/L 98-107 CO2 (BEAKER) (test gsre=120) 21 meq/L 22-29 BLOOD UREA NITROGEN (BEAKER) (test vafi=006) 19 mg/dL 7-21 CREATININE (BEAKER) (test voqf=159) 0.89 mg/dL 0.57-1.25 GLUCOSE RANDOM (BEAKER) (test ucyh=234) 44 mg/dL 70-105 CALCIUM (BEAKER) (test pamo=210) 8.4 mg/dL 8.4-10.2 EGFR (BEAKER) (test vwkj=3490) 67 mL/min/1.73 sq m ESTIMATED GFR IS NOT ACCURATE CREATININE CLEARANCE IN PREDICTING GLOMERULAR FILTRATION RATE. ESTIMATED GFR IS NOT APPLICABLE FOR DIALYSIS PATIENTS. Specimen slightly ictericHEPATIC FUNCTION [id number] 12:28:00* Test Item Value Reference Range Comments TOTAL PROTEIN (BEAKER) (test ezon=391) 5.8 gm/dL 6.0-8.3 ALBUMIN (BEAKER) (test jfjo=2338) 2.6 g/dL 3.5-5.0 BILIRUBIN TOTAL (BEAKER) (test atbu=601) 3.2 mg/dL 0.2-1.2 BILIRUBIN DIRECT (BEAKER) (test nvhq=080) 1.2 mg/dL 0.1-0.5 ALKALINE PHOSPHATASE (BEAKER) (test ayjf=787) 88 U/L 40-150 AST (SGOT) (BEAKER) (test lmzp=010) 24 U/L 5-34 ALT (SGPT) (BEAKER) (test mhbb=405) 13 U/L 6-55 Specimen slightly ictericCBC W/PLT COUNT & AUTO [id number] 12:12:00 * Test Item Value Reference Range Comments WHITE BLOOD CELL COUNT (BEAKER) (test cicu=108) 3.3 K/ L 4.0-10.0 RED BLOOD CELL COUNT (BEAKER) (test jdsa=323) 2.98 M/ L 4.00-5.00 HEMOGLOBIN (BEAKER) (test zjxe=674) 10.6 GM/DL 12.0-15.0 HEMATOCRIT (BEAKER) (test inxh=269) 32.2 % 36.0-45.0 MEAN CORPUSCULAR VOLUME (BEAKER) (test vgut=676) 108.0 fL 82.0-99.0 MEAN CORPUSCULAR HEMOGLOBIN (BEAKER) (test ruwq=829) 35.4 pg 27.0-33.0 MEAN CORPUSCULAR HEMOGLOBIN CONC (BEAKER) (test ztas=129) 32.7 GM/DL 32.0- 36.0 RED CELL DISTRIBUTION WIDTH (BEAKER) (test tmfm=847) 14.7 % 10.3-14.2 PLATELET COUNT (BEAKER) (test catc=964) 35 K/CU MM 150-430 MEAN PLATELET VOLUME (BEAKER) (test qmkw=857) 8.5 fL 6.5-10.5 NUCLEATED RED BLOOD CELLS (BEAKER) (test zxlc=241) 0 /100 WBC 0-0 NEUTROPHILS RELATIVE PERCENT (BEAKER) (test fcuq=921) 76 % LYMPHOCYTES RELATIVE PERCENT (BEAKER) (test npbu=833) 17 % MONOCYTES RELATIVE PERCENT (BEAKER) (test brzl=015) 5 % EOSINOPHILS RELATIVE PERCENT (BEAKER) (test orqc=553) 2 % BASOPHILS RELATIVE PERCENT (BEAKER) (test yafz=039) 0 % NEUTROPHILS ABSOLUTE COUNT (BEAKER) (test adyr=111) 2.48 K/ L 1.80-8.00 LYMPHOCYTES ABSOLUTE COUNT (BEAKER) (test objw=561) 0.55 K/ L 1.48-4.50 MONOCYTES ABSOLUTE COUNT (BEAKER) (test qnqs=263) 0.18 K/ L 0.00-1.30 EOSINOPHILS ABSOLUTE COUNT (BEAKER) (test oued=258) 0.05 K/ L 0.00-0.50 BASOPHILS ABSOLUTE COUNT (BEAKER) (test ziuh=184) 0.01 K/ L 0.00-0.20 0.00PLATELET [id number] 12:03:00* Test Item Value Reference Range Comments PLATELET COUNT (BEAKER) (test hous=184) 30 K/CU MM 150-430 PROTHROMBIN TIME/[id number] 11:54:00* Test Item Value Reference Range Comments PROTIME (BEAKER) (test dkdp=840) 21.5 seconds 11.7-14.7 INR (BEAKER) (test qhjz=503) 1.9 <=5.9 RECOMMENDED COUMADIN/WARFARIN INR THERAPY RANGESSTANDARD DOSE: 2.0 - 3.0 Includes: PROPHYLAXIS for venous thrombosis, systemic embolization; TREATMENT for venous thrombosis and/or pulmonary embolus.HIGH RISK: Target INR is 2.5-3.5 for patients with mechanical heart valves.[id number] 11:54:00* Test Item Value Reference Range Comments PARTIAL THROMBOPLASTIN TIME (BEAKER) (test zuyw=816) 37.7 seconds 22.5-36.0
[2017-11-03 01:10] LABS: BASOPHILS % 0.4 % (0.0-1.0); EOSINOPHILS # (AUTO) 0.1 (0.0-0.4); EOSINOPHILS % 3.3 % (0.0-6.0); HEMATOCRIT 27.5 % (34.2-44.1); HEMOGLOBIN 8.9 g/dL (12.0-16.0); LYMPHOCYTES # (AUTO) 0.5 (1.0-3.2); MEAN CORPUSCULAR HGB CONC 32.4 g/dL (31-35); MEAN CORPUSCULAR VOLUME 95.8 fL (81-99); MONOCYTES # (AUTO) 0.2 (0.2-0.8); MONOCYTES % 7.8 % (4.4-11.3); NEUTROPHILS # (AUTO) 1.6 (2.1-6.9); NEUTROPHILS % 66.1 % (38.7-80.0); PLATELET COUNT 94 x10e3/uL (140-360); RED BLOOD COUNT 2.87 x10e6/uL (3.6-5.1); RED CELL DISTRIBUTION WIDTH 16.9 % (11.7-14.4)
[2017-11-03 01:35] LABS: ALBUMIN 2.8 g/dL (3.5-5.0); ALBUMIN/GLOBULIN RATIO 0.8 (0.8-2.0); ANION GAP 10.9 mmol/L (8-16); CALCIUM 8.6 mg/dL (8.4-10.2); CREATININE, SERUM 1.14 mg/dL (0.57-1.11); POTASSIUM 3.9 mmol/L (3.5-5.1)
--- NOTE | 2017-11-03 02:33 | Diagnostic Imaging Report ---
CHEST SINGLE (PORTABLE), 11/03/2017 12:50 AM Technique: CHEST SINGLE (PORTABLE) Comparison: 02/20/2016 Clinical history: Confusion Findings: See Impression Impression: 1. Stable enlarged cardiac silhouette. 2. Central vascular congestion. 3. Small right effusion with right basilar atelectasis. Aspiration or infection could be considered in the proper clinical context. Signed by: Dr Martina Lerma MD on 11/03/2017 2:30 AM
[2017-11-03] MEDS ORDERED: DEXTROSE 50% SYRINGE 50 ML IV PRN (03:30)
[2017-11-03] MEDS ORDERED: ONDANSETRON HCL INJ 2 MG/ML VIAL IV PRN (03:30)
[2017-11-03] MEDS ORDERED: SODIUM CHLORIDE FLUSH 10 ML SYR INJ PRN (03:30)
--- OUTSIDE RECORDS SUMMARY | 2017-11-03 03:30 | XMS REPORT | Clinical Summary ---
Author Author [facility] Address Unknown Phone Unavailable Care Team Providers [facility] Manager Name Role Phone Kenyon Aguilar MD [...] ID Type Phone Address Plan / Group [facility] xxxxxxxxx HMO/PPO THCARE CHOICE/CHO ICE [place] [address]
[2017-11-03 04:00] VITALS: BP 146/67
[2017-11-03 05:19] LABS: BILIRUBIN,URINE NEGATIVE (NEGATIVE); CLARITY,URINE CLEAR (CLEAR); COLOR,URINE YELLOW (YELLOW); KETONES,URINE NEGATIVE (NEGATIVE); LEUKOCYTE ESTERASE ,URINE NEGATIVE (NEGATIVE); NITRITE,URINE NEGATIVE (NEGATIVE); PROTEIN,URINE DIPSTICK NEGATIVE (NEGATIVE); URINE UROBILINOGEN 0.2 mg/dL (0.2 - 1)
[2017-11-03 05:22] LABS: AMPHETAMINES SCREEN,URINE NEGATIVE (NEGATIVE); BENZODIAZEPINES SCREEN,URINE NEGATIVE (NEGATIVE); PHENCYCLIDINE SCREEN,URINE NEGATIVE (NEGATIVE)
[2017-11-03 05:39] LABS: BACTERIA,URINE FEW /HPF; EPITHELIAL CELLS,URINE FEW /LPF; RBC,URINE 21-50 /HPF (0-5); TRANSITIONAL EPI CELLS,URINE FEW
[2017-11-03 07:30] VITALS: BP 137/80
[2017-11-03] MEDS: INSULIN REGULAR, HUMAN 100 UNIT/1 ML 3ML VIAL SQ SCH ×3 (07:30→16:30)
[2017-11-03] MEDS: LACTULOSE SYRUP 20 GM/30 ML UDC PO SCH ×2 (07:30→13:47)
[2017-11-03 08:21] VITALS: BP 137/80
[2017-11-03 12:23] VITALS: BP 127/63
--- NOTE | 2017-11-03 13:16 | History and Physical ---
CHIEF COMPLAINT: Altered mental status. HPI: Ms. Gomez is a 51-year-old female with remote history of alcohol abuse, currently has cirrhosis of liver. Patient has an excellent followup at [facility], and she is on the transplant list. She also has portal pulmonary hypertension for which she is on Opsumate and Remodulin. She follows up with cigar head pegger there. She became altered, and was seen by her [id number]. She was brought into the hospital. She was started on rifaximin and lactulose for her cirrhosis of the liver. She was not taking rifaximin because it was causing bloating, and likely was the reason for her going into hepatic encephalopathy. REVIEW OF SYSTEMS GENERAL: Denies any fever or chills. HEENT: Denies any head trauma. ENT: Denies any earache, nosebleed or throat pain. CV: Denies any chest pain. RESPIRATORY: The patient has baseline shortness of breath due to pulmonary hypertension. The rest of the review of systems are negative except as in HPI. PAST MEDICAL HISTORY: Portal pulmonary hypertension, cirrhosis of liver due to alcohol use, remote alcohol use, currently on transplant list, type 2 diabetes mellitus. The patient is on insulin pump. Hypothyroidism, right heart failure. PAST SURGICAL HISTORY: Appendectomy. FAMILY AND SOCIAL HISTORY: She is . She lives with her and [id number]. She does not smoke and does not drink. PHYSICAL EXAMINATION VITAL SIGNS: Temperature 97.4, pulse 77, blood pressure 127/63, respiratory rate 18, O2 sat 98% on room air. SKIN: Warm and dry. CHEST: Clear to auscultation bilaterally. HEENT: Head is atraumatic and normocephalic. Pupils reactive. GENERAL: The patient is awake, alert and oriented. ABDOMEN: Soft. Mildly distended. Bowel sounds audible. No hepatosplenomegaly. NEUROLOGIC: Awake, alert and oriented. No focal neurological deficits. EXTREMITIES: No pedal edema. LABS: White count of 2.45, hemoglobin 8.9, and platelets 94,000. Chemistry: Sodium 135, potassium 3.9, chloride 108, BUN 20, creatinine 1.14. Ammonia 142. Chest x-ray was done in the emergency room, which was normal. Small right effusion. ASSESSMENT AND PLAN: Ms. Gomez is a 51-year-old female with a known history of cirrhosis of liver. She is in transplant list. She also has portal pulmonary hypertension and has an excellent followup at [facility]. She was started on rifaximin recently, which she stopped because of bloating. She has a history of hepatic encephalopathy in the past. PLAN: Currently, back to baseline. The patient is awake and alert. She is on insulin pump. She has lactulose and rifaximin at home. She has all her medications at home. She will be discharged home to follow up with her primary care physician. Discharge medication list was reviewed. Job#: [id number] MALGORZATA
[2017-11-03 15:45] LABS: BASOPHILS % 0.9 % (0.0-1.0); EOSINOPHILS # (AUTO) 0.1 (0.0-0.4); EOSINOPHILS % 4.2 % (0.0-6.0); HEMATOCRIT 25.9 % (34.2-44.1); HEMOGLOBIN 8.2 g/dL (12.0-16.0); LYMPHOCYTES # (AUTO) 0.5 (1.0-3.2); LYMPHOCYTES % 22.1 % (18.0-39.1); MEAN CORPUSCULAR HEMOGLOBIN 30.9 pg (28-32); MEAN CORPUSCULAR HGB CONC 31.7 g/dL (31-35); MEAN CORPUSCULAR VOLUME 97.7 fL (81-99); MONOCYTES # (AUTO) 0.2 (0.2-0.8); MONOCYTES % 8.9 % (4.4-11.3); NEUTROPHILS # (AUTO) 1.4 (2.1-6.9); NEUTROPHILS % 63.9 % (38.7-80.0); PLATELET COUNT 90 x10e3/uL (140-360); RED BLOOD COUNT 2.65 x10e6/uL (3.6-5.1); RED CELL DISTRIBUTION WIDTH 16.9 % (11.7-14.4)
[2017-11-03 16:10] LABS: ALBUMIN 2.5 g/dL (3.5-5.0); ALBUMIN/GLOBULIN RATIO 0.9 (0.8-2.0); CALCIUM 8.2 mg/dL (8.4-10.2); CREATININE, SERUM 1.13 mg/dL (0.57-1.11)
[2017-11-03 17:06] VITALS: BP 124/55
--- NOTE | 2017-11-03 17:56 | Discharge Summary ---
FINAL DIAGNOSES 1. Hepatic encephalopathy. 2. Cirrhosis of liver. 3. Portal pulmonary hypertension. ADMISSION HISTORY AND HOSPITAL COURSE: Please see the H\T\P as it is the same day hospital admit and discharge. Patient will be discharged home to follow up with her primary care physician and physicians at [facility]. ANISA GARCIA MD Job#: [id number]
== END 2017-11-03 18:06 | disposition home or self-care (01) ==
LOC: ER 00:39 → ERHOLD 03:27 → IMCU 06:02
PROVIDERS: ADMIT Internal Medicine; ATTEND Internal Medicine
DX: K72.90 Hepatic failure, unspecified without coma (principal); K74.60 Unspecified cirrhosis of liver; K76.6 Portal hypertension; I50.9 Heart failure, unspecified; R41.82 Altered mental status, unspecified; E11.9 Type 2 diabetes mellitus without complications; E03.9 Hypothyroidism, unspecified; Z79.4 Long term (current) use of insulin
CPT/HCPCS: 36415; 71045; 80053; 80307; 80320; 81001; 82140; 82948; 85025; 93005; 99284; G0378

== ENCOUNTER 2017-11-06 10:55 | Emergency (ER) | payer MEDICARE, OTHER ==
[~2017-11-06] VITALS: Ht 162.6 cm; Wt 50.8 kg
--- OUTSIDE RECORDS SUMMARY | 2017-11-06 10:58 | XMS REPORT | Clinical Summary ---
Author Author [facility] Organization [facility] Address Unknown Phone Unavailable Care Team Providers Care Refinery Operator Assistant Name Role Phone Kenyon Aguilar MD PCP Allergies Not on File Current Medications Not on file Active Problems Not on file Encounters Date Type Specialty Care Team Description 10/29/2017 Hospital Neurology Shaheen Bell MD Altered mental status, Encounter unspecified altered mental status type 10/28/2017 Transcribe Neurology Ania Archuleta Altered mental status, Orders unspecified altered mental status type (Primary Dx) after 11/05/2016 Social History Tobacco Use Types Packs/Day Years [...] the mental status type results section. after 11/05/2016 Results * Outpatient EEG (10/29/2017 11:45 AM) [...] activity was recorded. ICD-10 Code: R569 after 11/05/2016 Insurance Payer Benefit Subscriber ID Type Phone Address Plan / Group [facility] xxxxxxxxx HMO/PPO THCARE CHOICE/[place] [address]
--- OUTSIDE RECORDS SUMMARY | 2017-11-06 11:00 | XMS REPORT | Continuity of Care Document ---
Author Author [facility] Organization [facility] Address [address] [place] [address] Phone Unavailable Care Team Providers Care Remote Sensing Research Scientist Name Role Phone LITZY MARIE MD PCP Insurance Providers Guarantor ,November Address [address] [place] [address] Email [email or web address]/ [email or web address] [employer] Policy Number [id number] Subscriber's Name Dionne Mg R Relationship 01 Group Number [id number] Group Name [id number] Effective Date 17 [address]ayer [employer] Policy Number [id number] Subscriber's Name Dedra Mg Relationship 18 Self / Same As Patient Effective Date 16 Advance Directives Directive Response Recorded Date/Time Does the patient have an advance directive? No 11/03/17 6:34am If yes, is advance directive on file with [facility]? No 11/03/17 6:34am If not on file with [facility] will patient provide a copy? Yes 11/03/17 6:34am Do you have a Directive to Physician? No 11/03/17 12:35am Do you have a Medical Power of Registered Dental Hygienist? No 11/03/17 12:35am Do you have an out of hospital Do Not Resuscitate Order? No 11/03/17 12:35am Do you have any special needs we should be aware of? No 11/03/17 12:35am Do you have a support person here with you today? No 11/03/17 12:35am Did patient receive Notice of Privacy Practices? Yes 11/03/17 12:35am Did patient receive patient rights and responsibilities? Yes 11/03/17 12:35am Problems Medical Problem Onset Date Status Abdominal pain 02/01/2016 Acute Cirrhosis 11/27/2015 Acute Cirrhosis, alcoholic 02/01/2016 Acute Hepatic encephalopathy Unknown Hyperglycemia 02/01/2016 Acute Hypoxia 11/27/2015 Acute Pleural effusion 12/27/2014 Acute Pneumonia 12/27/2014 Acute Renal insufficiency 02/01/2016 Acute UTI (urinary tract infection) 12/24/2015 Acute Medications Current Home Medications Medication Dose Units Route Directions Days Qty Instructions Start Date Insulin Aspart (Novolog) 100 Units/Ml Ml Subcutaneously Before Meals And At Bedtime BS: >180-250=4 units 250-325=6 units 325-400=8 units >400= 10 units Insulin Glargine (Lantus) 100 Units/Ml Ml 20 Unit Sub-Q Bedtime Insulin Lispro (Humalog) 100 Unit/1 Ml Insuln.pen 16 Unit Sub-Q Three Times Daily With Meals Lactulose 20 Gm/30 Ml Solution 45 Ml Oral Twice A Day Levofloxacin (Levaquin) 500 Mg Tablet 500 Mg Oral Daily 7 Tab 02/20 Levothyroxine Sodium 50 Mcg Tablet 125 Mcg Oral Daily Ondansetron (Zofran Odt) 4 Mg Tab.rapdis 1 Tab Oral Q4-6H Prn 12 02/02/16 Pantoprazole Sodium 20 Mg Tablet.dr 40 Mg Oral Daily Potassium Chloride (K Dur*) 10 Meq Tabcr 20 Meq Oral Twice A Day Rifaximin (Xifaxan) 200 Mg Tablet 200 Mg Oral Daily Sildenafil Citrate (Viagra*) 50 Mg Tab 20 Mg Oral Three Times A Day Spironolactone 25 Mg Tablet 50 Mg Oral Daily 60 Tab Torsemide 20 Mg Tablet 20 Mg Oral Daily Tramadol Hcl (Ultram) 50 Mg Tablet 50 Mg Oral Every 8 Hours as needed for Pain Past Home Medications Medication Directions Ordered Status Bupropion Hcl (Wellbutrin Xl) 150 Mg Tabcr, 150 Mg Oral Daily Discontinued Bupropion Hcl (Wellbutrin) 75 Mg Tablet, Oral Daily Discontinued Furosemide (Lasix) 40 Mg Tablet, 40 Mg Oral As Needed as needed for Shortness Of Breath Discontinued Insulin Aspart (Novolog) 100 Units/Ml Ml, 14 Units Subcutaneously Three Times Daily With Meals Discontinued Insulin Detemir (Levemir 3ML Flexpen*) 100 Units/Ml Inj, 24 Units Subcutaneously Bedtime Discontinued Lactulose , 40 G Oral Three Times A Day Discontinued Levofloxacin (Levaquin) 500 Mg Tablet, 500 Mg Oral Daily 02/02/16 Discontinued Levofloxacin (Levaquin) 500 Mg Tablet, 500 Mg Oral Daily Discontinued Levothyroxine Sodium (Synthroid) 50 Mcg Tab, 50 Mcg Oral Today At 6:30AM Discontinued Spironolactone (Aldactone) 25 Mg Tablet, 25 Mg Oral Twice A Day Discontinued Social History Social History Problem Response Recorded Date/Time Onset Date Status Hx Psychiatric Problems No 11/03/2017 6:34am Not Applicable Not Applicable Hx Eating Disorder No 11/03/2017 6:34am Not Applicable Not Applicable Hx Substance Use Disorder No 11/03/2017 6:34am Not Applicable Not Applicable Hx Depression No 11/03/2017 6:34am Not Applicable Not Applicable Hx Alcohol Use Yes 11/03/2017 6:34am Not Applicable Not Applicable Hx Substance Use Treatment No 11/03/2017 6:34am Not Applicable Not Applicable Hx Physical Abuse No 11/03/2017 6:34am Not Applicable Not Applicable Hospital Discharge Instructions No hospital discharge instruction information available. Plan of Care Discharge Date 11/03/17 6:06pm Disposition HOME, SELF-CARE Instructions/Education Provided Alcohol Abuse Cirrhosis Prescriptions See Medication Section Additional Instructions/Education Activity as tolerated Functional Status Query Response Date Recorded Assistive Devices None November 03, 2017 7:30am Ambulation Ability Independent November 03, 2017 7:30am Toileting Ability Independent November 03, 2017 7:30am Allergies, Adverse Reactions, Alerts Allergen Type Severity Reaction Status Last Updated No Known Drug Allergies Allergy Mild Active 06/17/12 Immunizations No immunization information available. Vital Signs Acute Vital Signs Vital Response Date/Time Temperature (Fahrenheit) 99.1 degrees F (97.6 - 99.5) 11/03/2017 5:06pm Pulse Pulse Rate (adult) 83 bpm (60 - 90) 11/03/2017 5:06pm Respiratory Rate 18 bpm (12 - 24) 11/03/2017 5:06pm Blood Pressure 124/55 mm Hg 11/03/2017 5:06pm Height 5 ft 4 in 11/03/2017 12:42am Weight 112.03 lb 11/03/2017 8:21am Body Mass Index 19.2 kg/m^2 11/03/2017 8:21am Results Laboratory Results Test Name Result Units Flags Reference Collection Date/Time Result Date/ Time Comments White Blood Count 2.13 x10e3/uL L 4.8-10.8 11/03/2017 3:00pm 11/03/2017 3:47pm Red Blood Count 2.65 x10e6/uL L 3.6-5.1 11/03/2017 3:00pm 11/03/2017 3: 47pm Hemoglobin 8.2 g/dL L 12.0-16.0 11/03/2017 3:00pm 11/03/2017 3:47pm Hematocrit 25.9 % L 34.2-44.1 11/03/2017 3:00pm 11/03/2017 3:47pm Mean Corpuscular Volume 97.7 fL 81-99 11/03/2017 3:00pm 11/03/2017 3: 47pm Mean Corpuscular Hemoglobin 30.9 pg 28-32 11/03/2017 3:00pm 11/03/2017 3:47pm Mean Corpuscular Hemoglobin Concent 31.7 g/dL 31-35 11/03/2017 3:00pm 11/03/2017 3:47pm Red Cell Distribution Width 16.9 % H 11.7-14.4 11/03/2017 3:00pm 2017 3:47pm Platelet Count 90 x10e3/uL L 140-360 11/03/2017 3:00pm 11/03/2017 3: 47pm Neutrophils (%) (Auto) 63.9 % 38.7-80.0 11/03/2017 3:00pm 11/03/2017 3: 47pm Lymphocytes (%) (Auto) 22.1 % 18.0-39.1 11/03/2017 3:00pm 11/03/2017 3: 47pm Monocytes (%) (Auto) 8.9 % 4.4-11.3 11/03/2017 3:00pm 11/03/2017 3: 47pm Eosinophils (%) (Auto) 4.2 % 0.0-6.0 11/03/2017 3:00pm 11/03/2017 3: 47pm Basophils (%) (Auto) 0.9 % 0.0-1.0 11/03/2017 3:00pm 11/03/2017 3:47pm IM GRANULOCYTES % 0.0 % 0.0-1.0 11/03/2017 3:00pm 11/03/2017 3:47pm Neutrophils # (Auto) 1.4 L 2.1-6.9 11/03/2017 3:00pm 11/03/2017 3: 47pm Lymphocytes # (Auto) 0.5 L 1.0-3.2 11/03/2017 3:00pm 11/03/2017 3: 47pm Monocytes # (Auto) 0.2 0.2-0.8 11/03/2017 3:00pm 11/03/2017 3:47pm Eosinophils # (Auto) 0.1 0.0-0.4 11/03/2017 3:00pm 11/03/2017 3:47pm Basophils # (Auto) 0.0 0.0-0.1 11/03/2017 3:00pm 11/03/2017 3:47pm Absolute Immature Granulocyte (auto 0 x10e3/uL 0-0.1 11/03/2017 3:00pm 11/03/2017 3:47pm Urine Color YELLOW YELLOW 11/03/2017 5:03am 11/03/2017 5:22am Urine Clarity CLEAR CLEAR 11/03/2017 5:03am 11/03/2017 5:22am Urine Specific [place] 1.015 1.010-1.025 11/03/2017 5:03am 2017 5:22am Urine pH 7 5 - 7 11/03/2017 5:03am 11/03/2017 5:22am Urine Leukocyte Esterase NEGATIVE NEGATIVE 11/03/2017 5:03am 2017 5:22am Urine Nitrite NEGATIVE NEGATIVE 11/03/2017 5:03am 11/03/2017 5:22am Urine Protein NEGATIVE NEGATIVE 11/03/2017 5:03am 11/03/2017 5:22am Urine Glucose (UA) NEGATIVE NEGATIVE 11/03/2017 5:03am 11/03/2017 5: 22am Urine Ketones NEGATIVE NEGATIVE 11/03/2017 5:03am 11/03/2017 5:22am Urine Opiates Screen NEGATIVE NEGATIVE 11/03/2017 5:03am 11/03/2017 5 :22am Urine Barbiturates Screen NEGATIVE NEGATIVE 11/03/2017 5:03am 2017 5:22am Urine Phencyclidine Screen NEGATIVE NEGATIVE 11/03/2017 5:03am 2017 5:22am Urine Amphetamines Screen NEGATIVE NEGATIVE 11/03/2017 5:03am 2017 5:22am Urine Methamphetamines Screen NEGATIVE NEGATIVE 11/03/2017 5:03am 5:22am Urine Benzodiazepines Screen NEGATIVE NEGATIVE 11/03/2017 5:03am 5:22am Urine Cocaine Screen NEGATIVE NEGATIVE 11/03/2017 5:03am 11/03/2017 5 :22am Urine Cannabinoids Screen NEGATIVE NEGATIVE 11/03/2017 5:03am 2017 5:22am THESE RESULTS ARE FOR MEDICAL TREATMENT ONLY *THIS REPORT CONTAINS UNCONFIRMED SCREENING RESULTS* POSITIVE RESULTS WILL BE CONFIRMED BY REFERENCE LAB UPON REQUEST CUT-OFF DRUG CLASS CONCENTRATION ng/mL Amphetamines 1000 Methamphetamines 1000 Cocaine 300 Opiate 300 Phencyclidine 25 Cannabinoid 50 Barbiturates 300 Benzodiazepine 300 Methadone 300 Urine Methadone Screen NEGATIVE NEGATIVE 11/03/2017 5:03am 2017 5:22am THESE RESULTS ARE FOR MEDICAL TREATMENT ONLY *THIS REPORT CONTAINS UNCONFIRMED SCREENING RESULTS* POSITIVE RESULTS WILL BE CONFIRMED BY REFERENCE LAB UPON REQUEST CUT-OFF DRUG CLASS CONCENTRATION ng/mL Amphetamines 1000 Methamphetamines 1000 Cocaine Metabolite 300 Opiate 300 Phencyclidine 25 Cannabinoid 50 Barbiturates 300 Benzodiazepine 300 Methadone 300 Urine Urobilinogen 0.2 mg/dL 0.2 - 1 11/03/2017 5:03am 11/03/2017 5: 22am Urine Bilirubin NEGATIVE NEGATIVE 11/03/2017 5:03am 11/03/2017 5: 22am Urine Blood 2+ H NEGATIVE 11/03/2017 5:03am 11/03/2017 5:22am Urine WBC 6-10 /HPF H 0-5 11/03/2017 5:03am 11/03/2017 5:40am Urine RBC 21-50 /HPF H 0-5 11/03/2017 5:03am 11/03/2017 5:40am Urine Bacteria FEW /HPF NONE 11/03/2017 5:03am 11/03/2017 5:40am Urine Epithelial Cells FEW /LPF NONE 11/03/2017 5:03am 11/03/2017 5: 40am Urine Transitional Epithelial Cells FEW H NONE 11/03/2017 5:03am 11/03 5:40am Sodium Level 141 mmol/L 136-145 11/03/2017 3:00pm 11/03/2017 4:13pm Potassium Level 4.0 mmol/L 3.5-5.1 11/03/2017 3:00pm 11/03/2017 4:13pm Chloride Level 114 mmol/L H 98-107 11/03/2017 3:00pm 11/03/2017 4:13pm Carbon Dioxide Level 20 mmol/L L 22-29 11/03/2017 3:00pm 11/03/2017 4: 13pm Anion Gap 11.0 mmol/L 8-16 11/03/2017 3:00pm 11/03/2017 4:13pm Blood Urea Nitrogen 17 mg/dL 7-26 11/03/2017 3:00pm 11/03/2017 4:13pm Creatinine 1.13 mg/dL H 0.57-1.11 11/03/2017 3:00pm 11/03/2017 4:13pm BUN/Creatinine Ratio 15 6-25 11/03/2017 3:00pm 11/03/2017 4:13pm Estimat Glomerular Filtration Rate 51 ML/MIN L 60- 11/03/2017 3:00pm 4:13pm Ranges were taken from the National Kidney Disease Education Program and the National Kid[employer] literature. Reference ranges: 60 or greater: Normal 16-59 (for 3 consecutive months): Chronic kidney disease 15 or less: Kidney failure Glucose Level 155 mg/dL H 74-118 11/03/2017 3:00pm 11/03/2017 4:13pm Calcium Level 8.2 mg/dL L 8.4-10.2 11/03/2017 3:00pm 11/03/2017 4:13pm Bedside Glucose 134 mg/dL H 70-120 11/03/2017 4:01pm 11/03/2017 4:46pm Meter ID: [id number] Total Bilirubin 1.7 mg/dL H 0.2-1.2 11/03/2017 3:00pm 11/03/2017 4:13pm Aspartate Amino Transf (AST/SGOT) 23 IU/L 5-34 11/03/2017 3:00pm 2017 4:13pm Alanine Aminotransferase (ALT/SGPT) 13 IU/L 0-55 11/03/2017 3:00pm 4:13pm Ammonia 179 UG/DL H 31-123 11/03/2017 3:00pm 11/03/2017 4:17pm Total Protein 5.4 g/dL L 6.5-8.1 11/03/2017 3:00pm 11/03/2017 4:13pm Albumin 2.5 g/dL L 3.5-5.0 11/03/2017 3:00pm 11/03/2017 4:13pm Globulin 2.9 g/dL 2.3-3.5 11/03/2017 3:00pm 11/03/2017 4:13pm Albumin/Globulin Ratio 0.9 0.8-2.0 11/03/2017 3:00pm 11/03/2017 4: 13pm Alkaline Phosphatase 88 IU/L 40-150 11/03/2017 3:00pm 11/03/2017 4: 13pm Ethyl Alcohol Level < 10.0 mg/dL 0.0-10.0 11/03/2017 1:00am 11/03/2017 1:29am Procedures No procedure information available. Encounters Encounter Location Arrival/Admit Date Discharge/Depart Date Attending Provider Discharged Inpatient (obs) [facility] 11/03/17 3:27am 6:06pm ANISA GARCIA MD
[2017-11-06 11:19] LABS: BASOPHILS % 0.5 % (0.0-1.0); EOSINOPHILS # (AUTO) 0.1 (0.0-0.4); EOSINOPHILS % 2.8 % (0.0-6.0); HEMATOCRIT 33.2 % (34.2-44.1); HEMOGLOBIN 10.8 g/dL (12.0-16.0); LYMPHOCYTES # (AUTO) 0.4 (1.0-3.2); LYMPHOCYTES % 16.1 % (18.0-39.1); MEAN CORPUSCULAR HGB CONC 32.5 g/dL (31-35); MEAN CORPUSCULAR VOLUME 95.4 fL (81-99); MONOCYTES # (AUTO) 0.2 (0.2-0.8); MONOCYTES % 7.8 % (4.4-11.3); NEUTROPHILS # (AUTO) 1.6 (2.1-6.9); NEUTROPHILS % 72.8 % (38.7-80.0); PLATELET COUNT 78 x10e3/uL (140-360); RED BLOOD COUNT 3.48 x10e6/uL (3.6-5.1); RED CELL DISTRIBUTION WIDTH 16.4 % (11.7-14.4)
[2017-11-06 11:38] LABS: ALBUMIN 3.1 g/dL (3.5-5.0); ALBUMIN/GLOBULIN RATIO 0.8 (0.8-2.0); CALCIUM 9.5 mg/dL (8.4-10.2); CREATININE, SERUM 0.98 mg/dL (0.57-1.11)
[2017-11-06 11:55] LABS: BILIRUBIN,URINE NEGATIVE (NEGATIVE); CLARITY,URINE SL CLOUDY (CLEAR); COLOR,URINE YELLOW (YELLOW); KETONES,URINE NEGATIVE (NEGATIVE); LEUKOCYTE ESTERASE ,URINE NEGATIVE (NEGATIVE); NITRITE,URINE NEGATIVE (NEGATIVE); PROTEIN,URINE DIPSTICK 2+ (NEGATIVE); URINE UROBILINOGEN 0.2 mg/dL (0.2 - 1)
[2017-11-06] MEDS ORDERED: POTASSIUM CHLORIDE 20 MEQ TAB CR PO NR (12:00)
[2017-11-06 12:10] LABS: EPITHELIAL CELLS,URINE RARE /LPF; HYALINE CASTS 0-1 (0-1)
[2017-11-06 14:48] VITALS: BP 132/64
== END 2017-11-06 15:00 | disposition home or self-care (01) ==
LOC: ER 10:55
DX: E11.649 Type 2 diabetes mellitus with hypoglycemia without coma (principal)
CPT/HCPCS: 36415; 80053; 81001; 82140; 82150; 82948; 83690; 85025; 99284